=== PATIENT | male | born 1950 | race Caucasian/White ===

== ENCOUNTER 2016-08-03 08:59 | Inpatient (IN) | payer MEDICARE ==
--- NOTE | 2016-08-03 10:09 | ED ---
Chest Pain HPI - General Chief Complaint: Chest Pain Stated Complaint: CHEST PAIN, HX Time Seen by Provider: 08/03/16 09:07 Source: patient, RN notes reviewed Mode of arrival: ambulatory Limitations: no limitations - History of Present Illness Initial Comments: This patient is 65-year-old man who presents to be evaluated for substernal and epigastric pain that is been coming on intermittently since last night. The episodes are like a pressure, moderate intensity. The patient states that he has had 3 episodes over this period of time. Today's episode occurred while he was walking on his treadmill. He describes it as a pressure sensation. It lasted about 15 minutes and it did resolve while he was resting here in the stretcher. The patient states she was having similar episodes about 3 years ago which resulted in him having a stress test followed by a heart catheterization. His recollection is that he had a 40% blockage in one artery he did not have any stents placed. MD Complaint: chest pain Onset/Timin -: days(s) Onset: during exertion Pain Location: substernal, epigastric Pain Radiation: none Severity: moderate Severity scale (1-10): 7 Quality: heaviness Consistency: intermittent, now resolved Improves With: rest Worsens With: exertion Treatments Prior to Arrival: none - Related Data Home Medications Medication Instructions Recorded Confirmed Aspirin 81 mg PO DAILY 08/03/16 08/03/16 Atorvastatin [Lipitor] 10 mg PO HS@1900 08/03/16 08/03/16 Diltiazem Cd [Cardizem Cd] 120 mg PO DAILY 08/03/16 08/03/16 Allergies Allergy/AdvReac Type Severity Reaction Status Date / Time No Known Allergies Allergy Verified 08/03/16 09:47 Review of Systems ROS Statement: Those systems with pertinent positive or pertinent negative responses have been documented in the HPI. ROS Other: All systems not noted in ROS Statement are negative. Constitutional: Denies: fever, chills, weakness Respiratory: Denies: cough, dyspnea, wheezes Cardiovascular: Reports: as per HPI, chest pain, dyspnea on exertion. Denies: palpitations, edema, syncope Gastrointestinal: Denies: abdominal pain, nausea, vomiting Genitourinary: Denies: dysuria, hematuria Skin: Denies: rash Neurological: Denies: headache, weakness, numbness EKG Findings - EKG Results: EKG: interpreted by ERMD, WNL, sinus rhythm (Rate 90 bpm), normal axis, normal QRS, normal ST/T Past Medical History Past Medical History: Coronary Artery Disease (CAD) History of Any Multi-Drug Resistant Organisms: None Reported Additional Past Surgical History / Comment(s): VASECTOMY Past Psychological History: No Psychological Hx Reported Smoking Status: Former smoker Past Alcohol Use History: None Reported Past Drug Use History: None Reported General Exam Limitations: no limitations General appearance: alert, in no apparent distress Head exam: Present: atraumatic, normocephalic Eye exam: Present: normal appearance. Absent: scleral icterus, conjunctival injection ENT exam: Present: normal oropharynx Neck exam: Present: normal inspection, full ROM Respiratory exam: Present: normal lung sounds bilaterally. Absent: respiratory distress, wheezes, rales, rhonchi, stridor, chest wall tenderness Cardiovascular Exam: Present: regular rate, normal rhythm, normal heart sounds. Absent: systolic murmur, diastolic murmur, rubs, gallop GI/Abdominal exam: Present: soft. Absent: distended, tenderness, guarding, rebound Extremities exam: Present: normal inspection, normal capillary refill. Absent: pedal edema, calf tenderness Back exam: Present: normal inspection. Absent: CVA tenderness (R), CVA tenderness (L) Skin exam: Present: warm, dry, intact, normal color. Absent: rash Course Vital Signs 08/03/16 09:01 Temperature 97.6 F Pulse Rate 90 Respiratory 18 Rate Blood Pressure 125/84 O2 Sat by Pulse 93 L Oximetry Disposition Clinical Impression: Chest pain Disposition: ADMITTED IP TO THIS HOSP Condition: Good
[2016-08-03 10:15] LABS: Basophils # (A) 0.1 k/uL (0-0.2); Basophils % (A) 1 %; CH 30.7; CHCM 36.2; Eosinophils # (A) 0.2 k/uL (0-0.7); Eosinophils % (A) 3 %; HCT 46.1 % (39.0-53.0); HDW 2.92; Luc # (Auto) 0.09; Luc % (Auto) 2; Lymphocytes # (A) 1.1 k/uL (1.0-4.8); Lymphocytes % (A) 18 %; MCH 29.7 pg (25.0-35.0); MCHC 34.8 g/dL (31.0-37.0); MCV 85.4 fL (80.0-100.0); Mean Platelet Volume 7.7; Monocytes # (A) 0.5 k/uL (0-1.0); Monocytes % (A) 8 %; Neutrophils # (A) 4.4 k/uL (1.3-7.7); Neutrophils % (A) 70 %; RBC 5.39 m/uL (4.30-5.90); RDW 12.8 % (11.5-15.5); WBC 6.2 k/uL (3.8-10.6); WBC (Perox) 5.85
[2016-08-03 10:22] LABS: ALT 36 U/L (21-72); AST 18 U/L (17-59); Alkaline Phosphatase 99 U/L (38-126); Amylase 84 U/L (30-110); Anion Gap 14 mmol/L; Blood Urea Nitrogen 19 mg/dL (9-20); Calcium 9.6 mg/dL (8.4-10.2); Carbon Dioxide 26 mmol/L (22-30); Chloride 103 mmol/L (98-107); Glucose 136 mg/dL (74-99); Non-African American GFR(MDRD) 52 (>60 ml/min/1.73 sqM); Potassium 4.8 mmol/L (3.5-5.1); Sodium 143 mmol/L (137-145); Total Bilirubin 1.3 mg/dL (0.2-1.3); Total Protein 7.6 g/dL (6.3-8.2)
--- NOTE | 2016-08-03 10:31 | XR ---
EXAMINATION TYPE: XR chest 2V DATE OF EXAM: 08/03/2016 10:24 AM COMPARISON: None HISTORY: 65-year-old male with chest pain today TECHNIQUE: Frontal and lateral views FINDINGS: The cardiomediastinal silhouette, aorta, and pulmonary vasculature are within normal limits. Mild int erstitial prominence likely chronic senescent change. No consolidation or pleural effusion. IMPRESSION: Chronic appearing changes without acute cardiopulmonary process.
[2016-08-03 10:33] LABS: Creatine Kinase 63 U/L (55-170)
[2016-08-03 10:47] LABS: Creatine Kinase MB 0.5 ng/mL (0.0-2.4); Troponin I <0.012 ng/mL (0.000-0.034)
[2016-08-03] MEDS ORDERED: NITROGLYCERIN SL TABS 0.4 MG TAB SUBLINGUAL PRN (11:29)
[2016-08-03 11:35] LABS: Appearance,Urine Cloudy (Clear); Bilirubin,Urine Negative (Negative); Glucose,Urine (UA) Negative (Negative); Ketones,Urine 1+ (Negative); Leukocyte Esterase,Urine Negative (Negative); Mucus,Urine Many /hpf; Nitrite,Urine Negative (Negative); PH, Urine 5.5 (5.0-8.0); Particle Count 15331; Protein,Urine Trace (Negative); UA Billing (MACRO vs. MICRO) MICRO; WBC,Urine 3 /hpf (0-5)
--- NOTE | 2016-08-03 13:43 | P.CRDCN ---
History of Present Illness Consult date: 08/03/16 Chief complaint: Chest pain History of present illness: This is a pleasant 65-year-old gentleman with a past medical history significant for CAD, hypertension, dyslipidemia presented to the emergency room complaining of chest discomfort. He had 4 episodes of chest discomfort over the last 24 hours. He describes the discomfort as a sharp kind of discomfort lasts only for a few seconds without any associated symptoms of shortness of breath, sweating, nausea or vomiting or syncope. He underwent heart catheterization by Dr. JAYCOB Angelo in 2013 and that showed intermediate disease involving the left anterior descending artery and maximize medical treatment was recommended at that point. The EKG showed sinus rhythm with a nonspecific changes only. We have only one set of cardiac enzymes came in to be unremarkable. I will follow-up with the second set of cardiac enzymes. If that came in to be unremarkable I would consider proceeding with a stress test to assess for any progression in the severity of the CAD from 2014. Past Medical History Past Medical History: Coronary Artery Disease (CAD), Chest Pain / Angina, Prostate Disorder Additional Past Medical History / Comment(s): BPH, chronic low back pain, recent root canal-was on ABX. History of Any Multi-Drug Resistant Organisms: None Reported Past Surgical History: Heart Catheterization Additional Past Surgical History / Comment(s): 2013 Cardiac cath-treated medically, wisdom teeth extraction, VASECTOMY Past Anesthesia/Blood Transfusion Reactions: No Reported Reaction Past Psychological History: No Psychological Hx Reported Additional Psychological History / Comment(s): Pt resides with his spouse. He is independent. Smoking Status: Former smoker Past Alcohol Use History: Rare Additional Past Alcohol Use History / Comment(s): Pt started smoking in 1968 and quit in 1998. Past Drug Use History: None Reported - Past Family History Father Family Medical History: Coronary Artery Disease (CAD) Additional Family Medical History / Comment(s): Father at 88 yrs of age. He had heart problems late in life. Mother Family Medical History: No Reported History Additional Family Medical History / Comment(s): Mother was healthy. She at the age of 94 yrs. Medications and Allergies Home Medications Medication Instructions Recorded Confirmed Type Aspirin 81 mg PO DAILY 08/03/16 08/03/16 History Atorvastatin [Lipitor] 10 mg PO HS@1900 08/03/16 08/03/16 History Diltiazem Cd [Cardizem Cd] 120 mg PO DAILY 08/03/16 08/03/16 History Allergies Allergy/AdvReac Type Severity Reaction Status Date / Time No Known Allergies Allergy Verified 08/03/16 09:47 Physical Exam Vitals: Vital Signs Temp Pulse Pulse Resp BP BP Pulse Ox 08/03/16 12:05 97.6 F 92 18 132/83 96 08/03/16 11:47 97.8 F 70 18 130/81 94 L Intake and Output 08/02/16 08/03/16 08/03/16 22:59 06:59 14:59 Other: Weight 76.7 kg Patient Weight 08/04/16 06:59 Weight 76.7 kg - Constitutional General appearance: no acute distress - Respiratory Respiratory: bilateral: CTA - Cardiovascular Rhythm: regular Heart sounds: normal: S1, S2 Abnormal Heart Sounds: systolic murmur Results 08/03/16 09:20 08/03/16 09:20 Current Medications Generic Name Dose Route Start Last Admin Trade Name Freq PRN Reason Stop Dose Admin Aspirin 325 mg 08/04/16 09:00 Aspirin PO DAILY [facility] Atorvastatin Calcium 10 mg 08/03/16 19:00 Lipitor PO HS@1900 CORNELIO Diltiazem HCl 120 mg 08/04/16 09:00 Cardizem Cd PO DAILY [facility] Heparin Sodium (Porcine) 5,000 unit 08/03/16 16:00 Heparin SQ Q8HR [facility] Sodium Chloride 1,000 mls @ 100 mls/hr 08/03/16 11:30 Saline 0.9% IV .Q10H CORNELIO Nitroglycerin 0.4 mg 08/03/16 11:29 Nitrostat SUBLINGUAL Q5M PRN Chest Pain Intake and Output 08/02/16 08/03/16 08/03/16 22:59 06:59 14:59 Other: Weight 76.7 kg Patient Weight 08/04/16 06:59 Weight 76.7 kg Assessment and Plan Plan: Assessment #1 intermittent episodes of chest discomfort seems to be atypical #2 known CAD documented on a heart catheterization in 2013 #3 multiple risk factors for CAD Plan #1 follow-up on the serial cardiac enzymes #2 further recommendation to follow that
[2016-08-03 16:00] LABS: Creatine Kinase 54 U/L (55-170)
[2016-08-03 16:10] LABS: Creatine Kinase MB 0.3 ng/mL (0.0-2.4); Troponin I <0.012 ng/mL (0.000-0.034)
[2016-08-03] MEDS: HEPARIN SODIUM,PORCINE 5,000 UNIT/ML 1 ML VIAL SQ SCH (16:37)
[2016-08-03] MEDS: SODIUM CHLORIDE 0.9% 1,000 ML IV SCH (20:08)
[2016-08-03] MEDS: ATORVASTATIN 10 MG TAB PO SCH (20:08)
[2016-08-03 21:47] LABS: Creatine Kinase 50 U/L (55-170)
[2016-08-03 22:00] LABS: Creatine Kinase MB 0.3 ng/mL (0.0-2.4); Troponin I <0.012 ng/mL (0.000-0.034)
[2016-08-04] MEDS: HEPARIN SODIUM,PORCINE 5,000 UNIT/ML 1 ML VIAL SQ SCH ×3 (00:20→18:57)
[2016-08-04 01:44] LABS: Cholesterol 96 mg/dL (<200); HDL Cholesterol 35 mg/dL (40-60); Triglycerides 59 mg/dL (<150)
--- NOTE | 2016-08-04 08:36 | P.PN ---
Subjective Principal diagnosis: Chest pain This is a pleasant 65-year-old gentleman with a known coronary artery disease, hypertension, and dyslipidemia who sees Dr. JAYCOB Angelo as an outpatient was admitted to the hospital with a chest discomfort. In 2013 he underwent a heart catheterization which showed intermediate disease involving the LAD. This admission, his cardiac workup came in to be unremarkable but he continues to have chest discomfort. I am proceeding with a stress test to rule out any severe underlying CAD in terms of progression in the severity of the LAD. Objective - Vital Signs Vital signs: Vital Signs Temp 97.5 F L 08/04/16 07:37 Pulse 61 08/04/16 07:37 Resp 16 08/04/16 07:37 BP 124/74 08/04/16 07:37 Pulse Ox 94 L 08/04/16 07:37 Intake & Output 08/03/16 08/04/16 08/04/16 18:59 06:59 18:59 Intake Total 812 400 Balance 812 400 Weight 76.7 kg Intake: Oral 812 400 Other: Voiding Method Toilet # Voids 1 - Constitutional General appearance: Present: no acute distress - Respiratory Respiratory: bilateral: CTA - Cardiovascular Rhythm: regular Heart sounds: normal: S1, S2 - Labs CBC & Chem 7: 08/03/16 09:20 08/03/16 09:20 Labs: Abnormal Lab Results - Last 24 Hours (Table) 08/03/16 08/03/16 Range/Units 15:14 20:37 Total Creatine Kinase 54 L 50 L (55-170) U/L Assessment and Plan Plan: Assessment #1 atypical chest pain #2 known CAD #3 multiple risk factors Plan #1 proceeding with a stress test #2 follow-up with the patient
[2016-08-04] MEDS: SODIUM CHLORIDE 0.9% 1,000 ML IV SCH ×2 (11:25→19:45)
[2016-08-04] MEDS: ASPIRIN 325 MG TAB PO SCH (11:33)
[2016-08-04] MEDS: DILTIAZEM CD 120 MG CAP.ER.24H PO SCH (11:33)
--- NOTE | 2016-08-04 11:57 | NM ---
EXAMINATION TYPE: NM stress cardiolite complete DATE OF EXAM: 08/04/2016 11:48 AM COMPARISON: NONE HISTORY: Precordial chest pain and abnormal EKG TECHNIQUE: After the intravenous administration of 10.7 mCi Tc 99m Sestamibi - Rest images obtained 40 minutes post injection. The patient exercised using a WILMA protocol and 1 minute prior to peak exercise was injected with 27.5 mCi Tc 99m Sestamibi - Stress images obtained 14 minutes post injecti on. FINDINGS: Targeted heart rate was achieved during performance of the study. Review of stress and rest SPECT dave ges demonstrates no distinct perfusion abnormality. Gated analysis shows normal wall motion with an estimated left ventricular ejection fraction of 63% %. IMPRESSION: No scintigraphic evidence for reversible ischemia
--- NOTE | 2016-08-04 12:19 | EST ---
DATE OF SERVICE: 08/04/2016 AGE: 65Y SEX: M HT: 70" WT: 169 lbs. Protocol Steve: X Other: Cardiolite Stage: III Dur. of Exercise: 7:30 *Heart Rate Blood Pressure *Rest: 98 Rest: 105/74 * *Max. Achieved: 137 Maximum BP: 131/84 85% PMHR: 130 100% PMHR: 153 *METS: 9.1 INDICATIONS: Chest pain. MEDICATIONS: Cardizem, aspirin, Lipitor. CLINICAL INFORMATION: Chest pain, hypertension, hypercholesterolemia, history of smoking 1 pack of cigarettes for 20 years, quit smoking 20 years ago. Resting ECG shows sinus rhythm, rate of 98 beats per minute, WA interval 0.16, QRS 0.08, normal ST-T waves. Utilizing a standard Steve protocol, a symptom-limited treadmill test was performed. Patient exercised for total of 7 minutes and 30 seconds, attained a peak heart of 137 beats per minute which is approximately 89% of predicted maximum heart rate without any chest pain or pressure or ST segment deviations indicative of ischemia in any of the monitoring 12 leads. IMPRESSION: 1. Baseline rhythm is sinus with normal WA interval, normal QRS, normal ST-T waves. 2. Negative Cardiolite scan at 89% predicted maximum heart rate. 3. Nuclear scintigrams to follow from radiology department. 4. Patient has slightly below average level of cardiopulmonary fitness as indicated by VO2 max and METs. Patient attained peak metabolic activity equivalent to 8 to 9 METs.
--- NOTE | 2016-08-04 13:41 | HP ---
DATE OF ADMISSION: 08/03/2016 This patient was seen and examined by me, awaiting some more information. Full dictation of history and physical to follow.
--- NOTE | 2016-08-04 13:55 | HP ---
DATE OF ADMISSION: 08/03/2016 PRESENTING COMPLAINT: Chest pain. HISTORY OF PRESENTING COMPLAINT: This is a pleasant 65-year-old patient I saw earlier today. I was waiting for more information before dictating my note. The patient had a cardiac cath back in 2013, which told he had 40% disease was managed medically. The patient also had chronic stable medical conditions that include hypertension, hypercholesterolemia, BPH, low back pain. Patient about 5 days ago was on the treadmill, developed a slight chest pressure. Every subsequent day on the treadmill, he was having more and more chest pressure even before getting onto the treadmill as much as yesterday. Denied any shortness of breath. Slightly dizzy. No radiation. Because of his progressive symptoms, the patient was admitted for unstable angina. REVIEW OF SYSTEMS: CONSTITUTIONAL: None. HEENT: None. RESPIRATORY: None. CARDIOVASCULAR: As above. GASTROINTESTINAL: None. GENITOURINARY: None. MUSCULOSKELETAL: Chronic low back pain. DERMATOLOGICAL: None. HEMATOLOGICAL: None. LYMPHATICS: None. PSYCHIATRY: None. NEUROLOGICAL: None. Past medical history of coronary artery disease nonobstructive 40% per cardiac cath, BPH, low back pain, hypertension, hypercholesterolemia. PAST SURGICAL HISTORY: Cardiac cath, wisdom teeth extraction, vasectomy. SOCIAL HISTORY: . Retired from [employer] in [employer]. Smoked for about 30 years; stopped in 1998. Family history of coronary artery disease. HOME MEDICATIONS: 1. Aspirin 81 mg a day. 2. Cardizem CD 120 mg a day. 3. Lipitor 10 mg q.h.s. ALLERGIES: None. On examination, temperature 97.5, pulse 61, respirations 16, blood pressure 124/74, pulse ox 94% on room air. GENERAL APPEARANCE: Average built, sitting up, comfortable. EYES: Pupils equal. Conjunctivae normal. HENT: External appearance of nose and ears normal. Oral cavity normal. NECK: JVD not raised. Mass not palpable. RESPIRATORY: Effort normal. Lungs are clear. CARDIOVASCULAR: First and second sounds normal. No edema. ABDOMEN: Soft. Nontender. Liver and spleen not palpable. LYMPHATIC: No lymph node palpable in neck or axillae. PSYCHIATRY: Alert and oriented x3. Mood and affect is normal. INVESTIGATIONS: EKG shows normal sinus rhythm. ASSESSMENT: 1. Unstable angina in a patient with known nonobstructive coronary artery disease with progressive symptoms with exertion, rule out possible underlying coronary artery disease. 2. Benign prostatic hypertrophy, chronic. 3. Essential hypertension, chronic. 4. Hypercholesterolemia. PLAN: Cardiology was consulted who ordered a stress test. Patient's home medications were reviewed including aspirin. Will follow.
[2016-08-04] MEDS ORDERED: SODIUM CHLORIDE 0.9% 1,000 ML in EMPTY BAG 1 BAG IV ONE (15:46)
[2016-08-04] MEDS ORDERED: ALPRAZolam 0.25 MG TAB PO PRN (15:46)
[2016-08-04] MEDS: ATORVASTATIN 10 MG TAB PO SCH (19:54)
[2016-08-05] MEDS: ASPIRIN 325 MG TAB PO SCH (05:47)
[2016-08-05] MEDS: SODIUM CHLORIDE 0.9% 1,000 ML IV SCH ×3 (05:48→17:34)
[2016-08-05 06:37] LABS: CH 30.7; CHCM 34.9; HCT 42.2 % (39.0-53.0); HDW 2.82; HGB 14.5 gm/dL (13.0-17.5); MCH 30.3 pg (25.0-35.0); MCHC 34.4 g/dL (31.0-37.0); MCV 88.2 fL (80.0-100.0); Mean Platelet Volume 7.1; RBC 4.79 m/uL (4.30-5.90); RDW 12.8 % (11.5-15.5); WBC 6.9 k/uL (3.8-10.6)
[2016-08-05 06:46] LABS: Anion Gap 9 mmol/L; Blood Urea Nitrogen 21 mg/dL (9-20); Calcium 9.1 mg/dL (8.4-10.2); Carbon Dioxide 25 mmol/L (22-30); Chloride 106 mmol/L (98-107); Glucose 129 mg/dL (74-99); Non-African American GFR(MDRD) 57 (>60 ml/min/1.73 sqM); Sodium 140 mmol/L (137-145)
--- NOTE | 2016-08-05 07:43 | P.PN ---
Progress Note - Text This is a pleasant 65-year-old gentleman with a known coronary artery disease, hypertension, and dyslipidemia who sees Dr. JAYCOB Angelo as an outpatient was admitted to the hospital with a chest discomfort. In 2013 he underwent a heart catheterization which showed intermediate disease involving the LAD. This admission, his cardiac workup came in to be unremarkable but he continues to have chest discomfort. The patient underwent a stress test which came in to be unremarkable for ischemia. Last night he was experiencing some chest discomfort with exertion. I am getting the patient up and around this morning and if she continues to have a chest discomfort I would consider proceeding with heart catheterization to rule out any CVA or CAD was not detected by the stress test.
--- NOTE | 2016-08-05 11:57 | ECHOF ---
Referral Reason: MEASUREMENTS -------- HEIGHT: 182.9 cm WEIGHT: 76.7 kg BP: 126/65 IVSd: 0.8 cm (0.6 - 1.1) LVIDd: 4.3 cm (3.9 - 5.3) LVPWd: 1.0 cm (0.6 - 1.1) IVSs: 1.8 cm LVIDs: 1.5 cm LVPWs: 1.9 cm Ao Diam: 2.8 cm (2.0 - 3.7) AV Cusp: 2.0 cm (1.5 - 2.6) LA Diam: 2.4 cm (2.7 - 3.8) MV EXCURSION: 14.577 mm (> 18.000) MV EF SLOPE: 119 mm/s (70 - 150) EPSS: 1.1 cm MV E Luis Armando: 0.73 m/s MV DecT: 217 ms MV A Luis Armando: 0.57 m/s MV E/A Ratio: 1.29 RAP: 5.00 mmHg RVSP: 17.86 mmHg FINDINGS -------- Sinus rhythm. This was a technically good study. Left ventricular wall thickness is normal. Overall left ventricular systolic function is normal with, an EF between 55 - 60 %. The right ventricle is normal in size and function. The left atrium is normal in size. The right atrium is normal in size. The aortic valve is trileaflet, and appears structurally normal. No aortic stenosis or regurgitation. There is trace mitral regurgitation. Mild tricuspid regurgitation present. The right ventricular systolic pressure, as measured by Doppler, is 17.86mmHg. Pulmonic valve appears structurally normal. The aortic root, ascending aorta and aortic arch are normal. The pericardium is normal. CONCLUSIONS -------- 1. Sinus rhythm. 2. Mild tricuspid regurgitation present. 3. The right ventricular systolic pressure, as measured by Doppler, is 17.86mmHg. 4. Pulmonic valve appears structurally normal. 5. The aortic root, ascending aorta and aortic arch are normal. 6. The pericardium is normal. 7. This was a technically good study. 8. Left ventricular wall thickness is normal. 9. Overall left ventricular systolic function is normal with, an EF between 55 - 60 %. 10. The right ventricle is normal in size and function. 11. The left atrium is normal in size. 12. The right atrium is normal in size. 13. The aortic valve is trileaflet, and appears structurally normal. No aortic stenosis or regurgitation. 14. There is trace mitral regurgitation. MUFFLER MECHANIC: Savanah Odonnell RDCS
[2016-08-05] MEDS ORDERED: IV FLUID CONTINUATION 1,000 ML IV ONE (13:40)
[2016-08-05] MEDS ORDERED: VERAPAMIL 2.5 MG/ML 2 ML AMP ONE (13:48)
[2016-08-05] MEDS ORDERED: MIDAZOLAM 2 MG/2 ML VIAL ONE (13:48)
[2016-08-05] MEDS ORDERED: LIDOCAINE 2% INJ 20 MG/ML (20 ML MDV) ONE (13:48)
[2016-08-05] MEDS ORDERED: SODIUM CHLORIDE 0.9% (PF) 10 ML VIAL ONE (13:48)
[2016-08-05] MEDS ORDERED: MIDAZOLAM 2 MG/2 ML VIAL IV ONE (14:08)
[2016-08-05] MEDS ORDERED: HEPARIN SODIUM 1,000 UNIT/ML VIAL ONE (14:09)
[2016-08-05] MEDS ORDERED: LIDOCAINE 2% INJ 20 MG/ML SQ ONE (14:09)
[2016-08-05] MEDS ORDERED: VERAPAMIL SYRINGE (5 MG/10 ML) INTRAARTER ONE (14:10)
[2016-08-05] MEDS ORDERED: HEPARIN SODIUM 1,000 UNIT/ML VIAL IV ONE (14:11)
[2016-08-05] MEDS ORDERED: IODIXANOL 320 MG/ML 100 ML INTRAARTER ONE (14:24)
[2016-08-05] MEDS ORDERED: RX INFO: IV CONTRAST WAS GIVEN 1 EACH MISC MISCELLANE PRN (14:33)
[2016-08-05] MEDS ORDERED: SODIUM CHLORIDE 0.9% 1,000 ML IV SCH (14:45)
[2016-08-05 16:10] VITALS: RESP 16; TEMP 97.9
[2016-08-05] MEDS ORDERED: ISOSORBIDE MONONITRATE ER 30 MG TAB.ER.24H PO STA (17:02)
[2016-08-05] MEDS ORDERED: ACETAMINOPHEN TAB 325 MG TAB PO PRN (17:16)
[2016-08-05] MEDS: DILTIAZEM CD 120 MG CAP.ER.24H PO SCH (17:33)
[2016-08-05 17:39] VITALS: BP 107/63; PULSE 61
--- NOTE | 2016-08-05 18:08 | CC ---
DATE OF SERVICE: 08/05/2016 PERFORMING PHYSICIAN: Raul Hinson MD, grounds foreman. PROCEDURE PERFORMED: Selective right and left coronary angiogram. INDICATION OF THE PROCEDURE: This is a pleasant 65-year-old gentleman who sees Dr. Erasmo Angelo as an outpatient with a known history of coronary artery disease involving the LAD as well as hypertension and dyslipidemia presented to the hospital with chest discomfort. He continues to have chest discomfort with exertion. APPROACH: Right radial artery. COMPLICATIONS: None. LEVEL OF SEDATION: Moderate. PROCEDURE DESCRIPTION: After obtaining informed consent, the patient was brought to the cardiac director of cath lab. The right common femoral artery was cannulated using micropuncture technique. The micropuncture wire passed easily, then I placed a 6 Turkmen sheath in the right radial artery. Subsequently, I did selective right and left coronary angiogram using JR4 and JL 3.5 catheters. I did left heart catheterization using the JR4 catheter, which flipped into the left ventricle. The procedure was completed without any complication. SELECTIVE CORONARY ANGIOGRAM: 1. The right coronary artery is a large-caliber vessel. It is a dominant vessel. It is angiographically normal. It bifurcates distally into PDA and PLV branches; both are angiographically normal. 2. The left main is angiographically normal. It bifurcates into the left circumflex and left anterior descending artery. 3. The left circumflex is a large-caliber vessel and it is a nondominant vessel. The proximal left circumflex gives rise to the first OM branch, which appeared to be angiographically normal and the left circumflex continues as a small-caliber vessel in the AV groove. 4. Left anterior descending artery. The proximal LAD appeared to be angiographically normal and gives rises into the first diagonal, which seems to be angiographically normal. The mid LAD is normal and gives rises into the second diagonal, which seems to be angiographically normal. The left anterior descending distally has long tubular lesion appeared to be in the range of maybe 40% only. CONCLUSION: Mild to moderate disease involving the distal left anterior descending artery seems to be unchanged compared to before. POSTPROCEDURE MANAGEMENT: 1. I am going to add oral nitrate to the current medical treatment. 2. Follow up with the patient.
--- NOTE | 2016-08-06 07:45 | DS ---
DATE OF ADMISSION: 08/04/2016 DATE OF DISCHARGE: 08/05/2016 FINAL DIAGNOSES: 1. Unstable angina with patient of nonobstructive coronary artery disease. 2. Benign prostatic hypertrophy, chronic. 3. Essential hypertension, chronic. 4. Hypercholesterolemia. HOSPITAL COURSE: This patient presented with cardiac sounding presentation: Cardiac cath did showed nonobstructive disease. On exam, lungs are clear. CARDIOVASCULAR: First and second sounds normal. Patient's nuclear stress test otherwise unremarkable. 2-D echocardiogram shows EF of 55% to 60%. The patient's LDL was 49. CONSULTATION: Dr. Hinson. DISCHARGE MEDICATIONS: 1. Aspirin 81 mg a day. 2. Lipitor 10 mg p.o. q.h.s. 3. Cardizem CD 120 mg a day. 4. Imdur ER 30 mg a day. 5. Nitrostat 0.4 sublingual q.5 p.r.n. Follow up with Dr. Victorina Angelo in one week; Dr. Perez in one week. LUNGS: Clear. CARDIOVASCULAR: First and second sounds normal.
[2016-08-06] MEDS ORDERED: ISOSORBIDE MONONITRATE ER 30 MG TAB.ER.24H PO SCH (09:00)
== END 2016-08-05 19:02 | disposition home or self-care (01) | DRG 287 ==
LOC: EC 08:59 → 3OBS 11:29 → OBSVTOIN 08-04 16:05
PROVIDERS: ADMIT Hospitalist; ATTEND Hospitalist
PROC: B211YZZ Fluoroscopy of Multiple Coronary Arteries using Other Contrast (ICD-10-PCS; principal; 2016-08-05 13:40)
DX: I25.110 Atherosclerotic heart disease of native coronary artery with unstable angina pectoris (principal); I10 Essential (primary) hypertension; E78.5 Hyperlipidemia, unspecified; E78.00 Pure hypercholesterolemia, unspecified; N40.0 Benign prostatic hyperplasia without lower urinary tract symptoms; G89.29 Other chronic pain; M54.5 Low back pain; Z79.82 Long term (current) use of aspirin; Z79.899 Other long term (current) drug therapy; Z87.891 Personal history of nicotine dependence; Z82.49 Family history of ischemic heart disease and other diseases of the circulatory system
CPT/HCPCS: 36415; 71020; 78452; 80048; 80053; 80061; 81001; 82150; 82550; 82553; 83690; 83735; 84484; 85025; 85027; 85379; 93005; 93017; 93306; 93458; 99285

== ENCOUNTER 2019-03-06 13:37 | Emergency (ER) | payer MEDICARE ==
[2019-03-06] MEDS ORDERED: SODIUM CHLORIDE 0.9% 1,000 ML IV STA (14:21)
--- NOTE | 2019-03-06 14:37 | ED ---
Dizziness HPI - General Chief Complaint: Dizziness Stated Complaint: weakness, confusion Time Seen by Provider: 03/06/19 14:12 Source: patient, RN notes reviewed, old records reviewed Mode of arrival: wheelchair Limitations: no limitations - History of Present Illness Initial Comments: 68 year old male presents today with 3 weeks of intermittent confusion, off balance, and complains of lightheadedness. Patient reports he has been exercsing more frequently and thinking this is contributing. Denies pain, including headache or chest pain. Patient reports he called PCP for appt and was told to come here. PAtient at this time walked into ED and denies falls. Patient denies syncopal episodes. Patient reports sometimes in conversations he says the wrong thing in response. Patient has no history of strokes, heart disease. - Related Data Home Medications Medication Instructions Recorded Confirmed Aspirin 81 mg PO DAILY 08/03/16 08/03/16 Atorvastatin [Lipitor] 10 mg PO HS@1900 08/03/16 08/03/16 Diltiazem Cd [Cardizem CD] 120 mg PO DAILY 08/03/16 08/03/16 Previous Rx's Medication Instructions Recorded Isosorbide Mononitrate ER [Imdur] 30 mg PO DAILY #30 tab.er.24h 08/05/16 Nitroglycerin Sl Tabs [Nitrostat] 0.4 mg SUBLINGUAL Q5M PRN #25 tab 08/05/16 Allergies Allergy/AdvReac Type Severity Reaction Status Date / Time No Known Allergies Allergy Verified 03/06/19 14:02 Review of Systems ROS Statement: Those systems with pertinent positive or pertinent negative responses have been documented in the HPI. ROS Other: All systems not noted in ROS Statement are negative. Past Medical History Past Medical History: Coronary Artery Disease (CAD), Chest Pain / Angina, Prostate Disorder Additional Past Medical History / Comment(s): BPH, chronic low back pain, recent root canal-was on ABX. History of Any Multi-Drug Resistant Organisms: None Reported Past Surgical History: Heart Catheterization Additional Past Surgical History / Comment(s): 2014 Cardiac cath-treated medically, wisdom teeth extraction, VASECTOMY Past Anesthesia/Blood Transfusion Reactions: No Reported Reaction Past Psychological History: No Psychological Hx Reported Smoking Status: Former smoker Past Alcohol Use History: Rare Past Drug Use History: None Reported - Past Family History Father Family Medical History: Coronary Artery Disease (CAD) Additional Family Medical History / Comment(s): Father at 88 yrs of age. He had heart problems late in life. Mother Family Medical History: No Reported History Additional Family Medical History / Comment(s): Mother was healthy. She at the age of 94 yrs. General Exam Limitations: no limitations General appearance: alert, in no apparent distress Head exam: Present: atraumatic, normocephalic, normal inspection Eye exam: Present: normal appearance, PERRL, EOMI. Absent: scleral icterus, conjunctival injection, periorbital swelling ENT exam: Present: normal exam, mucous membranes moist Neck exam: Present: normal inspection. Absent: tenderness, meningismus, lymphadenopathy Respiratory exam: Present: normal lung sounds bilaterally. Absent: respiratory distress, wheezes, rales, rhonchi, stridor Cardiovascular Exam: Present: regular rate, normal rhythm, normal heart sounds. Absent: systolic murmur, diastolic murmur, rubs, gallop, clicks GI/Abdominal exam: Present: soft, normal bowel sounds. Absent: distended, tenderness, guarding, rebound, rigid Extremities exam: Present: normal inspection, full ROM, normal capillary refill. Absent: tenderness, pedal edema, joint swelling, calf tenderness Back exam: Present: normal inspection Neurological exam: Present: alert, oriented X3, CN II-XII intact Expanded Patient oriented to: Present: person, place, time Speech: Present: fluid speech Cranial nerves: EOM's Intact: Normal, Facial Sensation: Normal Cerebellar function: Finger to Nose: Normal Upper motor neuron: Alfred Neglect: Normal Sensory exam: Upper Extremity Light Touch: Normal, Lower Extremity Light Touch: Normal Motor strength exam: RUE: 5, LUE: 5, RLE: 5, LLE: 5 Eye Response: (4) open spontaneously Motor Response: (6) obeys commands Verbal Response: (5) oriented [place] Total: 15 Psychiatric exam: Present: normal affect, normal mood Skin exam: Present: warm, dry, intact, normal color. Absent: rash Course Vital Signs 03/06/19 03/06/19 14:00 16:53 Temperature 97.1 F L 98.4 F Pulse Rate 87 60 Respiratory 20 16 Rate Blood Pressure 136/76 172/75 O2 Sat by Pulse 96 95 Oximetry Medical Decision Making - Medical Decision Making 68 yo male, presents today with 3 weeks of dizziness, lightheaded feeling, and reports occasional confusion. AT this time he has normal converstation. No signs of neurological deficits. CXR is normal, CT brain is shows chronic ischemic changes, no acute intracranial abnormality. Patient labs were normal. Patient and informed of all results. Patient and discussed plan for DC and follow up with PCP and neurology. Discussed maybe onset of dementia or other neurodegenerative disorders. Discussed possible admission for observation and patient preferred to go home. Discussed close PCP follow up. - Lab Data Result diagrams: 03/06/19 14:40 03/06/19 14:40 Lab Results 03/06/19 03/06/19 03/06/19 Range/Units 14:40 14:40 14:40 WBC 5.6 (3.8-10.6) k/uL RBC 4.67 (4.30-5.90) m/uL Hgb 14.8 (13.0-17.5) gm/dL Hct 42.7 (39.0-53.0) % MCV 91.6 (80.0-100.0) fL MCH 31.8 (25.0-35.0) pg MCHC 34.7 (31.0-37.0) g/dL RDW 12.3 (11.5-15.5) % Plt Count 197 (150-450) k/uL Neutrophils % 66 % Lymphocytes % 17 % Monocytes % 10 % Eosinophils % 4 % Basophils % 1 % Neutrophils # 3.7 (1.3-7.7) k/uL Lymphocytes # 1.0 (1.0-4.8) k/uL Monocytes # 0.5 (0-1.0) k/uL Eosinophils # 0.2 (0-0.7) k/uL Basophils # 0.0 (0-0.2) k/uL Sodium 140 (137-145) mmol/L Potassium 4.4 (3.5-5.1) mmol/L Chloride 103 (98-107) mmol/L Carbon Dioxide 27 (22-30) mmol/L Anion Gap 10 mmol/L BUN 18 (9-20) mg/dL Creatinine 0.95 (0.66-1.25) mg/dL Est GFR (CKD-EPI)AfAm >90 (>60 ml/min/1.73 sqM) Est GFR (CKD-EPI)NonAf 81 (>60 ml/min/1.73 sqM) Glucose 98 (74-99) mg/dL Calcium 9.1 (8.4-10.2) mg/dL Total Bilirubin 0.5 (0.2-1.3) mg/dL AST 22 (17-59) U/L ALT 21 (21-72) U/L Alkaline Phosphatase 65 (38-126) U/L Troponin I <0.012 (0.000-0.034) ng/mL Total Protein 7.2 (6.3-8.2) g/dL Albumin 4.3 (3.5-5.0) g/dL Urine Color Urine Appearance (Clear) Urine pH (5.0-8.0) Ur Specific [place] (1.001-1.035) Urine Protein (Negative) Urine Glucose (UA) (Negative) Urine Ketones (Negative) Urine Blood (Negative) Urine Nitrite (Negative) Urine Bilirubin (Negative) Urine Urobilinogen (<2.0) mg/dL Ur Leukocyte Esterase (Negative) 03/06/19 Range/Units 14:40 WBC (3.8-10.6) k/uL RBC (4.30-5.90) m/uL Hgb (13.0-17.5) gm/dL Hct (39.0-53.0) % MCV (80.0-100.0) fL MCH (25.0-35.0) pg MCHC (31.0-37.0) g/dL RDW (11.5-15.5) % Plt Count (150-450) k/uL Neutrophils % % Lymphocytes % % Monocytes % % Eosinophils % % Basophils % % Neutrophils # (1.3-7.7) k/uL Lymphocytes # (1.0-4.8) k/uL Monocytes # (0-1.0) k/uL Eosinophils # (0-0.7) k/uL Basophils # (0-0.2) k/uL Sodium (137-145) mmol/L Potassium (3.5-5.1) mmol/L Chloride (98-107) mmol/L Carbon Dioxide (22-30) mmol/L Anion Gap mmol/L BUN (9-20) mg/dL Creatinine (0.66-1.25) mg/dL Est GFR (CKD-EPI)AfAm (>60 ml/min/1.73 sqM) Est GFR (CKD-EPI)NonAf (>60 ml/min/1.73 sqM) Glucose (74-99) mg/dL Calcium (8.4-10.2) mg/dL Total Bilirubin (0.2-1.3) mg/dL AST (17-59) U/L ALT (21-72) U/L Alkaline Phosphatase (38-126) U/L Troponin I (0.000-0.034) ng/mL Total Protein (6.3-8.2) g/dL Albumin (3.5-5.0) g/dL Urine Color Yellow Urine Appearance Clear (Clear) Urine pH 6.5 (5.0-8.0) Ur Specific [place] 1.019 (1.001-1.035) Urine Protein Negative (Negative) Urine Glucose (UA) Negative (Negative) Urine Ketones Negative (Negative) Urine Blood Negative (Negative) Urine Nitrite Negative (Negative) Urine Bilirubin Negative (Negative) Urine Urobilinogen <2.0 (<2.0) mg/dL Ur Leukocyte Esterase Negative (Negative) 03/06/19 16:46 EKG performed at 1433 shows normal sinus rhythm with normal EKG. Ventricular rate of 70 bpm. Verbal 154 ms. QRS duration is 76 ms. QT QTc is 372/41 ms. - Radiology Data Radiology results: report reviewed No acute intracranial hemorrhage or midline shift. Age-related she will atrophy and chronic small vessel changes noted. Disposition Clinical Impression: Light-headed feeling Disposition: HOME SELF-CARE Condition: Good Instructions (If sedation given, give patient instructions): Dizziness (ED) Additional Instructions: Patient is advised to rest. Drink plenty of fluids. Have follow-up with your primary care physician and recommended follow-up with neurology. Is patient prescribed a controlled substance at d/c from ED?: No Referrals: Bert Perez DO [Primary Care Provider] - 1-2 days Time of Disposition: 16:44
--- NOTE | 2019-03-06 15:08 | XR ---
EXAMINATION TYPE: XR chest 2V DATE OF EXAM: 03/06/2019 COMPARISON: 08/03/2016 HISTORY: Dizziness, weakness, and confusion TECHNIQUE: Frontal and lateral views of the chest are obtained. FINDINGS: There is no focal air space opacity, pleural effusion, or pneumothorax seen. The cardiac silhouette size is within normal limits. The osseous structures are intact. IMPRESSION: No acute cardiopulmonary process.
[2019-03-06 15:09] LABS: Appearance,Urine Clear (Clear); Basophils % (A) 1 %; Bilirubin,Urine Negative (Negative); Blood,Urine Negative (Negative); Color,Urine Yellow; Eosinophils # (A) 0.2 k/uL (0-0.7); Eosinophils % (A) 4 %; Glucose,Urine (UA) Negative (Negative); HCT 42.7 % (39.0-53.0); HGB 14.8 gm/dL (13.0-17.5); Ketones,Urine Negative (Negative); Leukocyte Esterase,Urine Negative (Negative); Lymphocytes % (A) 17 %; MCH 31.8 pg (25.0-35.0); MCHC 34.7 g/dL (31.0-37.0); MCV 91.6 fL (80.0-100.0); Mean Platelet Volume 6.9; Monocytes # (A) 0.5 k/uL (0-1.0); Monocytes % (A) 10 %; Neutrophils # (A) 3.7 k/uL (1.3-7.7); Neutrophils % (A) 66 %; Nitrite,Urine Negative (Negative); PH, Urine 6.5 (5.0-8.0); Platelet Count 197 k/uL (150-450); Protein,Urine Negative (Negative); RBC 4.67 m/uL (4.30-5.90); RDW 12.3 % (11.5-15.5); Specific Gravity,Urine 1.019 (1.001-1.035); Urobilinogen,Urine <2.0 mg/dL (<2.0); WBC 5.6 k/uL (3.8-10.6)
--- NOTE | 2019-03-06 15:10 | CT ---
EXAMINATION TYPE: CT brain wo con DATE OF EXAM: 03/06/2019 HISTORY: Confusion, dizziness CT DLP: 1090.4 mGycm. Automated Exposure Control for Dose Reduction was Utilized. TECHNIQUE: CT scan of the head is performed without contrast. COMPARISON: None FINDINGS: There is no acute intracranial hemorrhage or midline shift identified. There is diffuse v entricular and sulcal prominence consistent with diffuse age-related cerebral atrophy. There is low- attenuation in the periventricular white matter consistent with chronic small vessel ischemic change. The globes are intact. Mucosal polyp or retention cyst in the medial right maxillary sinus. IMPRESSION: No acute intracranial hemorrhage or midline shift. There is diffuse age-related cerebra l atrophy and chronic small vessel ischemic change noted.
[2019-03-06 15:20] LABS: ALT 21 U/L (21-72); AST 22 U/L (17-59); African American GFR (CKD) >90 (>60 ml/min/1.73 sqM); Albumin 4.3 g/dL (3.5-5.0); Alkaline Phosphatase 65 U/L (38-126); Anion Gap 10 mmol/L; Blood Urea Nitrogen 18 mg/dL (9-20); Calcium 9.1 mg/dL (8.4-10.2); Carbon Dioxide 27 mmol/L (22-30); Chloride 103 mmol/L (98-107); Glucose 98 mg/dL (74-99); Non-African American GFR(CKD) 81 (>60 ml/min/1.73 sqM); Potassium 4.4 mmol/L (3.5-5.1); Sodium 140 mmol/L (137-145); Total Bilirubin 0.5 mg/dL (0.2-1.3); Total Protein 7.2 g/dL (6.3-8.2)
[2019-03-06 16:54] VITALS: BP 172/75; PULSE 60; RESP 16; TEMP 98.4
== END 2019-03-06 17:00 | disposition home or self-care (01) ==
LOC: EC 13:37
DX: R42 Dizziness and giddiness (principal); R53.1 Weakness; R41.0 Disorientation, unspecified; I25.119 Atherosclerotic heart disease of native coronary artery with unspecified angina pectoris; Z79.82 Long term (current) use of aspirin; Z79.899 Other long term (current) drug therapy; Z87.891 Personal history of nicotine dependence; Z95.5 Presence of coronary angioplasty implant and graft
CPT/HCPCS: 36415; 70450; 71046; 80053; 81003; 84484; 85025; 93005; 96360; 99285

== ENCOUNTER → 2019-03-26 | Outpatient (CLI) | payer MEDICARE ==
--- NOTE | 2019-03-26 13:31 | US ---
EXAMINATION TYPE: US carotid duplex BILAT DATE OF EXAM: 03/26/2019 COMPARISON: NONE CLINICAL HISTORY: R41.3 other amnesia. EXAM MEASUREMENTS: RIGHT: Peak Systolic Velocity (PSV) cm/sec ----- Right CCA: 88.6 ----- Right ICA: 81.5 ----- Right ECA: 50.1 ICA/CCA ratio: 1.1 RIGHT: End Diastole cm/sec ----- Right CCA: 17.1 ----- Right ICA: 30.7 ----- Right ECA: 0.0 LEFT: Peak Systolic Velocity (PSV) cm/sec ----- Left CCA: 97.1 ----- Left ICA: 94.1 ----- Left ECA: 24.3 ICA/CCA ratio: 1.1 LEFT: End Diastole cm/sec ----- Left CCA: 19.3 ----- Left ICA: 28.3 ----- Left ECA: 0.0 VERTEBRALS (direction of flow): Right Vertebral: Antegrade Left Vertebral: Antegrade Rhythm: Normal Minimal plaque, No significant velocity elevations IMPRESSION: Mild degree of grayscale atheromatous plaquing with no sonographically evident hemodynam ically significant stenosis within either visualized carotid arterial system. Criteria for Assigning % of Stenosis / Diameter reduction (Estimation based on the indirect measurements of the internal carotid artery velocities (ICA PSV). 1. Normal (no stenosis)=ICA PSV < 125 cm/s: ratio < 2.0: ICA EDV<40 cm/s. 2. Less than 50% stenosis=ICA PSV < 125 cm/s: ratio < 2.0: ICA EDV<40 cm/s. 3. 50 to 69% stenosis=ICA PSV of 125 to 230 cm/s: ration 2.0 ? 4.0: ICA EDV 40-100 cm/s. 4. Greater than 70% stenosis to near occlusion= ICA PSV > 230 cm/s: ratio > 4.0: ICA EDV > 100 cm/s. 5. Near occlusion= ICA PSV velocities may be low or undetectable: variable ratio and ICA EDV. 6. Total occlusion=unable to detect flow.
--- NOTE | 2019-03-27 14:12 | EEG ---
ELECTROENCEPHALOGRAM REPORT PROCEDURE DATE: 03/27/2019. ELECTROENCEPHALOGRAM (EEG) REPORT: TECHNIQUE: A routine 18 channel EEG was performed with video using the 10/20 international placement system. HISTORY: Memory loss, patient is fatigued. CURRENT MEDICATIONS: Unknown. STUDY DURATION: 25 minutes. FINDINGS: BACKGROUND: The background activity consisted of 7 to 8 hertz rhythmic waveforms, symmetric through both posterior quadrants. ACTIVATION: HYPERVENTILATION: Not performed. PHOTIC STIMULATION: No driving seen. SLEEP: Drowsy. ABNORMALITIES: Intermittent diffuse 5-7 hertz polymorphic theta range slowing was seen. IMPRESSION: Mildly abnormal EEG. The intermittent diffuse polymorphic theta range slowing mentioned above is not epileptiform in nature. In combination with the slow background, these findings indicate mild diffuse cerebral dysfunction. No seizures were recorded. No epileptiform activity was present. MMODL / IJN: [id number] /
== END ==
LOC: NEUROMAIN 10:27
PROVIDERS: ATTEND Family Medicine
DX: R41.3 Other amnesia (principal)
CPT/HCPCS: 93880; 95816

== ENCOUNTER → 2019-03-27 | Outpatient (CLI) | payer MEDICARE ==
--- NOTE | 2019-03-27 14:50 | MR ---
EXAMINATION TYPE: MR brain wo/w con DATE OF EXAM: 03/27/2019 COMPARISON: CT brain dated 03/06/2019 HISTORY: Dizziness with amnesia TECHNIQUE: Multiplanar, multisequence images of the brain and brainstem is performed without and with IV contras t, utilizing 7 mL intravenous Gadavist . FINDINGS: Diffusion weighted images demonstrate no evidence of a recent infarct or other diffusion abnormality . There is no extra-axial fluid collection. There are multiple subcentimeter foci of T2/FLAIR hyperi ntensity within the periventricular/subcortical white matter. This is overall mild burden with the la rgest lesion in the right posterior frontal lobe measuring only 5 mm.. The ventricular system and ci sternal spaces are symmetrically prominent compatible with mild age-related volume loss. Midline structures demonstrate normal morphology. The craniocervical junction appears within normal limits. Post contrast images demonstrate no abnormal enhancement. Incidentally noted origin of the right posterior cerebral artery, normal anatomic variant. The dural venous sinuses appear patent . The visualized sinuses demonstrate polypoid mucosal thickening versus mucosal retention cysts of th e bilateral maxillary sinuses measuring up to 1.7 cm on the right. There is mild mucosal thickening w ithin the frontal and ethmoid sinuses. Sphenoid sinuses and mastoid air cells appear well aerated. IMPRESSION: 1. No acute infarct, midline shift or mass effect. 2. Mild burden nonspecific white matter change, most commonly on the basis of microangiopathy. No abn ormal intracranial enhancement is seen. No suspicious intracranial enhancing mass. 3. Polypoid mucosal thickening of the maxillary sinuses versus mucosal retention cysts and mild mucos al thickening in the ethmoid and frontal sinuses.
== END | disposition home or self-care (01) ==
LOC: RADMRIMAIN 11:20
PROVIDERS: ATTEND Family Medicine
DX: R90.89 Other abnormal findings on diagnostic imaging of central nervous system (principal)
CPT/HCPCS: 70553; A9585

== ENCOUNTER → 2019-05-22 | Outpatient (CLI) | payer MEDICARE ==
--- NOTE | 2019-05-22 18:04 | CONS ---
CONSULTATION DATE OF SERVICE: 05/22/2019 68-year-old gentleman has been evaluated in Sleep Center for tiredness and sleepiness during the day and multiple awakenings from sleep, twitching of his legs during the sleep. HISTORY OF PRESENT ILLNESS/SLEEP-WAKE EVALUATION: SLEEP SCHEDULE: Patient's usual sleep schedule from 11 p.m. to 7 a.m. FALLING ASLEEP: Usually no problems with falling asleep. No TV in bedroom. DURING SLEEP: He sleeps on the side position with his . According her, he snores, grinding teeth, has episodes of twitching legs and sleep talking. The patient wakes up 3 times with nocturia and sometimes dryness in the mouth. DURING THE DAY/SLEEP WAKE EVALUATION: In the morning, he wakes up tired, has difficulties to pay attention, falling asleep during the day, has problems with memory, concentration, and anxiety. [place] Sleepiness Scale increased to 10. The patient takes up to 4 naps during the day at 10:00 am, 1:00 pm and 4:00 pm. He sometimes feels refreshed after naps. He may see vivid dreams during naps. No history of hypnagogic hallucinations, sleep paralysis or cataplexy. PAST MEDICAL HISTORY: Positive feeling of pressure in the head. PAST SURGICAL HISTORY: Past surgical history none. MEDICATIONS: None at the present time. SOCIAL HISTORY: Positive for smoking for about 25 years, less than 1 pack a day. Quit 20 years ago. Alcohol consumption practically none. REVIEW OF SYSTEMS: Awakenings from sleep, tiredness and sleepiness during the day, twitching at night. He is feeling pressure in his head after sleep. His feeling of pressure in his improving during the sleep. FAMILY HISTORY: Positive for asthma, sinus problems, headaches, thyroid problems. PHYSICAL EXAM: gentleman without distress. BP 154/84, HR 82, RR 12, height 5 feet 8-1/2 inches, weight 159.8. Body mass index 23.8, temperature 98.1. Oxygen saturation at room air 97%. Oropharynx low position of soft palate. Mallampati 4. Some restriction of nasal breathing. Neck 15-1/2 inches in circumference. NECK: Supple, no JVD. Thyroid is not palpable. LUNGS: Clear to percussion and to auscultation. Good air exchange. No wheezing or rhonchi. HEART: S1, S2 regular. No murmurs, gallops, or rubs. ABDOMEN: Soft and nontender. Bowel sounds are present. No organomegaly appreciated. EXTREMITIES: No clubbing or cyanosis. PROOF PASSER: Awake, alert, and oriented X3. Cranial nerves 2 to 7 intact. There is no fasciculation or atrophy. noted. No focal deficits observed. IMPRESSION: 1. Snoring. Low position of soft palate, Mallampati 4, multiple awakenings from sleep with nocturia, excessive daytime sleepiness. [place] Sleepiness Scale is 10. Possible obstructive sleep apnea-hypopnea syndrome. 2. Significant amount of twitching during the sleep. Periodic limb movements. 3. Excessive daytime sleepiness. [place] Sleepiness Scale is 10. The patient takes 3 naps every day. May see vivid dreams during the nap. Differential diagnosis include hypersomnia. 4. Restless leg symptoms. 5. Restriction of nasal breathing. 6. Increasing blood pressure in the office today. PLAN: 1. Polysomnography for evaluation of patient's breathing during sleep and also to check for periodic limb movements. 2. CPAP/BiPAP titration if sleep study confirms obstructive sleep apnea-hypopnea syndrome. 3. Preferable position during sleep on the side. 4. No driving if patient feels any sleepiness. 5. I will see patient for follow up visit to explain results of testing and following plan. 6. Multiple sleep latency test if the sleep study will be negative for significant medical abnormalities of sleep. Thank you very much for referring this patient for consultation. Sincerely, Taurus Conroy MD, PhD, FAASM Diplomat of [employer] Professor Of Communication And Writing of [facility] [place] MMODL / PATTIN: [id number] /
== END ==
LOC: SLEEP 11:11
PROVIDERS: ATTEND Internal Medicine
DX: G47.10 Hypersomnia, unspecified (principal); G25.81 Restless legs syndrome; J98.8 Other specified respiratory disorders; R06.83 Snoring; R35.1 Nocturia; R03.0 Elevated blood-pressure reading, without diagnosis of hypertension; Z87.891 Personal history of nicotine dependence
CPT/HCPCS: 99211

== ENCOUNTER → 2019-07-10 | Outpatient (CLI) | payer MEDICARE ==
--- NOTE | 2019-07-10 12:52 | SFUN ---
SLEEP CENTER FOLLOW UP NOTE DATE OF SERVICE: 07/10/2019 This 68-year-old gentleman had been followed in the sleep center to discuss results of the sleep study and follow plan. Diagnostic polysomnogram which was done on 06/22/2019 did not show any significant respiratory abnormalities. Apnea-hypopnea index 2.2, although in REM sleep slightly increased to 11.3. Lowest oxygen was 85%, but according to the computer oxygen never came below 88% at the same time. So oxygen for 0.0 minutes was below 88%. Heart rate in the range between 45 and 75. Extremely severe periodic limb movements had been documented during the sleep study, 136.2 per hour with 1.9 microarousals per hour. Multiple sleep on the following day consisted from 5 naps. Patient fell asleep on 4 naps, but did not fall asleep on one nap. Subsequently mean sleep latency was 8.2, which is still shorter than normal and does indicate sleepiness. [place] Sleepiness Scale today is 12. MEDICATIONS: None at the present time. PHYSICAL EXAMINATION: During physical exam, patient in no distress. VITAL SIGNS: BP 133/85, HR 80, RR 14, temperature 97.1, oxygen saturation at room air 97%. HEENT: PERRLA, EOMI. Oropharynx moderately low position of soft palate. NECK: Supple, no JVD. Thyroid is not palpable. LUNGS: Clear to percussion and to auscultation. Good air exchange. No wheezing or rhonchi. HEART: S1, S2 regular. No murmurs, gallops, or rubs. ABDOMEN: Soft and nontender. Bowel sounds are present. No organomegaly appreciated. EXTREMITIES: No clubbing or cyanosis. DERRICK HELPER: Awake, alert, and oriented X3. Cranial nerves 2 to 7 intact. There is no fasciculation or atrophy. noted. No focal deficits observed. IMPRESSION: 1. No significant respiratory abnormalities have been documented during the sleep study. Normal total apnea-hypopnea index. Apnea-hypopnea index slightly increase in REM sleep, but it is not considered to be indication for treatment by today's criteria. 2. Extremely severe periodic limb movements have been documented during the sleep study; 136.2 per hour but only with 1.9 microarousals per hour, but I still believe that that could be the reason for sleepiness during the day, which has been confirmed by multiple sleep latency test. 3. Episodes of tremor. 4. Increasing blood pressure in the office during previous visit, and also episodes of increasing blood pressure while patient stayed for multiple sleep latency test. PLAN: 1. I will start the patient on dopamine antagonist, Mirapex 0.125 mg 1 to 2 tablets at bedtime. 2. Follow up with neurologist. Patient was scheduled for CT scan of the head in July. 3. Sleep hygiene with regular time in bed for 7-1/2 to 8 hours. 4. Precautions related to driving. No driving if feeling sleepiness. 5. Please check iron profile including ferritin level, low level of iron may increase risk for periodic limb movements. Thank you very much for allowing me to participate in the management of your patient. Sincerely, Taurus Conroy MD, PhD, FAASM Diplomat of [employer] Folded Towel Machine Operator of [facility] [place] MMODL / ELÍAS: [id number] /
== END | disposition home or self-care (01) ==
LOC: SLEEP 11:27
PROVIDERS: ATTEND Internal Medicine
DX: G47.61 Periodic limb movement disorder (principal); G25.2 Other specified forms of tremor; I10 Essential (primary) hypertension

== ENCOUNTER → 2019-07-29 | Outpatient (CLI) | payer MEDICARE ==
[~2019-07-29] MED LIST: IODINE/POTASS IOD (LUGOLS) BOTTLE TOPICAL ONE
--- NOTE | 2019-07-31 08:56 | NM ---
EXAMINATION TYPE: NM DatScan Brain SPECT DATE OF EXAM: 07/29/2019 COMPARISON: NONE HISTORY: Tremors and short-term memory loss TECHNIQUE: 10 drops of Lugol's solution was administered 1 hour prior to injection as a thyroid bloc montez agent. After the administration of 4.18 mCi I-123 Ioflupane DaTscan. Images obtained 3 hours p ost injection. SPECT images of the brain were acquired with axial and coronal reconstructions. FINDINGS: The DaTSCAN demonstrates reduced uptake of tracer throughout the striata. This appearance is consistent with the bilateral loss of the pre-synaptic dopaminergic terminals. IMPRESSION: In movement disorders, this abnormal appearance is consistent with a diagnosis of either idiopathic P arkinson's disease or or Parkinsonian syndrome. In dementia, this abnormal appearance is consistent with a diagnosis of dementia with Lewy bodies idi opathic Parkinson's disease, Parkinson?s dementia complex or Parkinsonian syndrome.
== END | disposition home or self-care (01) ==
LOC: RADNMMAIN 10:48
PROVIDERS: ATTEND Psychiatry & Neurology Neurology
DX: R94.02 Abnormal brain scan (principal)
CPT/HCPCS: 78803; A9584

== ENCOUNTER 2023-03-29 15:23 | Emergency (ER) | payer MEDICARE ==
--- NOTE | 2023-03-29 16:03 | ED ---
General Adult HPI - General Chief complaint: Urogenital Stated complaint: lower abd pain Time Seen by Provider: 03/29/23 15:30 Source: patient, family, RN notes reviewed, old records reviewed Mode of arrival: wheelchair Limitations: no limitations - History of Present Illness Initial comments: This is a 72-year-old male who presents in the emergency department complaining of inability to urinate since this morning. Patient states she has some suprapu bic fullness and he complains that it greenberg when he urinates prior to this episode of hypertension. Patient denies any new back pain. Patient denies any fever chills per patient denies any nausea vomiting diarrhea. Patient denies any other symptoms at this time. - Related Data Home Medications Medication Instructions Recorded Confirmed Aspirin 81 mg PO DAILY 08/03/16 08/03/16 Atorvastatin [Lipitor] 10 mg PO HS@1900 08/03/16 08/03/16 Diltiazem Cd [Cardizem CD] 120 mg PO DAILY 08/03/16 08/03/16 Previous Rx's Medication Instructions Recorded Isosorbide Mononitrate ER [Imdur] 30 mg PO DAILY #30 tab.er.24h 08/05/16 Nitroglycerin Sl Tabs [Nitrostat] 0.4 mg SUBLINGUAL Q5M PRN #25 tab 08/05/16 Allergies Allergy/AdvReac Type Severity Reaction Status Date / Time No Known Allergies Allergy Verified 03/06/19 14:02 Review of Systems ROS Statement: Those systems with pertinent positive or pertinent negative responses have been documented in the HPI. ROS Other: All systems not noted in ROS Statement are negative. Past Medical History Past Medical History: Coronary Artery Disease (CAD), Chest Pain / Angina, Prostate Disorder Additional Past Medical History / Comment(s): BPH, chronic low back pain, recent root canal-was on ABX. History of Any Multi-Drug Resistant Organisms: None Reported Past Surgical History: Heart Catheterization Additional Past Surgical History / Comment(s): 2013 Cardiac cath-treated medically, wisdom teeth extraction, VASECTOMY Past Anesthesia/Blood Transfusion Reactions: No Reported Reaction Past Psychological History: No Psychological Hx Reported Past Alcohol Use History: Rare Past Drug Use History: None Reported - Past Family History Father Family Medical History: Coronary Artery Disease (CAD) Additional Family Medical History / Comment(s): Father at 88 yrs of age. He had heart problems late in life. Mother Family Medical History: No Reported History Additional Family Medical History / Comment(s): Mother was healthy. She at the age of 94 yrs. General Exam - General Exam Comments Initial Comments: GENERAL: Patient is well-developed and well-nourished. Patient is nontoxic and well- hydrated and is in mild distress. ENT: Neck is soft and supple. No significant lymphadenopathy is noted. Oropharynx is clear. Moist mucous membranes. Neck has full range of motion without eliciting any pain. EYES: The sclera were anicteric and conjunctiva were pink and moist. Extraocular movements were intact and pupils were equal round and reactive to light. Eyelids were unremarkable. PULMONARY: Unlabored respirations. Good breath sounds bilaterally. No audible rales rhonchi or wheezing was noted. CARDIOVASCULAR: There is a regular rate and rhythm without any murmurs gallops or rubs. ABDOMEN: Patient has mild tenderness in the suprapubic region and some fullness. SKIN: Skin is clear with no lesions or rashes and otherwise unremarkable. NEUROLOGIC: Patient is alert and oriented x3. Cranial nerves II through XII are grossly intact. Motor and sensory are also intact. Normal speech, volume and content. Symmetrical smile. MUSCULOSKELETAL: Normal extremities with adequate strength and full range of motion. LYMPHATICS: No significant lymphadenopathy is noted PSYCHIATRIC: Normal psychiatric evaluation. Limitations: no limitations Course Vital Signs 03/29/23 03/29/23 15:29 16:46 Temperature 98 F Pulse Rate 67 54 L Respiratory 16 16 Rate Blood Pressure 148/90 145/80 O2 Sat by Pulse 99 99 Oximetry Medical Decision Making - Medical Decision Making Was pt. sent in by a medical professional or institution (, PA, STOREROOM SUPERVISOR, urgent care, hospital, or senior care...) When possible be specific @ -No Did you speak to anyone other than the patient for history (EMS, parent, family, police, friend...)? What history was obtained from this source @ -No Did you review nursing and triage notes (agree or disagree)? Why? @ -I reviewed and agree with nursing and triage notes Were old charts reviewed (outside hosp., previous admission, EMS record, old EKG, old radiological studies, urgent care reports/EKG's, senior care records)? Report findings @ -No old charts were reviewed Differential Diagnosis (chest pain, altered mental status, abdominal pain women, abdominal pain men, vaginal bleeding, weakness, fever, dyspnea, syncope, headache, dizziness, GI bleed, back pain, seizure, CVA, palpatations, mental health, musculoskeletal)? @ -Differential Abdominal Pain Men: Appendicitis, cholecystitis, diverticulosis, ischemic bowel, pancreatitis, he patitis, urinary retention, UTI, gastroenteritis, AAA, incarcerated hernia, bowel obstruction, constipation, inflammatory bowel, hepatitis, peptic ulcer disease, splenic infarction, perforated viscus, testicular torsion, this is not meant to be an all-inclusive list EKG interpreted by me (3pts min.). @ -As above X-rays interpreted by me (1pt min.). @ -None done CT interpreted by me (1pt min.). @ -None done U/S interpreted by me (1pt. min.). @ -None done What testing was considered but not performed or refused? (CT, X-rays, U/S, labs)? Why? @ -None What meds were considered but not given or refused? Why? @ -None Did you discuss the management of the patient with other professionals (professionals i.e. , PA, STOREROOM SUPERVISOR, lab, RT, psych nurse, social service assistant, disaster recovery specialist, teacher, industrial relations officer, case sealer)? Give summary @ -No Was smoking cessation discussed for >3mins.? @ -No Was critical care preformed (if so, how long)? @ -No Were there social determinants of health that impacted care today? How? (Homelessness, low income, unemployed, alcoholism, drug addiction, transportation, low edu. Level, literacy, decrease access to med. care, long-term, rehab)? @ -No Was there de-escalation of care discussed even if they declined (Discuss DNR or withdrawal of care, Hospice)? DNR status @ -No What co-morbidities impacted this encounter? (DM, HTN, Smoking, COPD, CAD, Cancer, CVA, ARF, Chemo, Hep., AIDS, mental health diagnosis, sleep apnea, morbid obesity)? @ -None Was patient admitted / discharged? Hospital course, mention meds given and route, prescriptions, significant lab abnormalities, going to OR and other pertinent info. @ -Did not have any signs of infection. Lab work looks normal on this patient and patient will follow-up with urology. Undiagnosed new problem with uncertain prognosis? @ -No Drug Therapy requiring intensive monitoring for toxicity (Heparin, Nitro, Insulin, Cardizem)? @ -No Were any procedures done? @ -No Diagnosis/symptom? @ -Urinary retention Acute, or Chronic, or Acute on Chronic? @ -Acute Uncomplicated (without systemic symptoms) or Complicated (systemic symptoms)? @ -Uncomplicated Side effects of treatment? @ -No Exacerbation, Progression, or Severe Exacerbation? @ -No Poses a threat to life or bodily function? How? (Chest pain, USA, [place], pneumonia, PE, COPD, DKA, ARF, appy, cholecystitis, CVA, Diverticulitis, Homicidal, Suicidal, threat to staff... and all critical care pts) @ -No - Lab Data Result diagrams: 03/29/23 16:10 03/29/23 16:10 Lab Results 03/29/23 03/29/23 03/29/23 Range/Units 16:10 16:10 16:10 WBC 6.5 (3.8-10.6) k/uL RBC 4.18 L (4.30-5.90) m/uL Hgb 13.4 (13.0-17.5) gm/dL Hct 38.4 L (39.0-53.0) % MCV 91.9 (80.0-100.0) fL MCH 32.0 (25.0-35.0) pg MCHC 34.8 (31.0-37.0) g/dL RDW 12.8 (11.5-15.5) % Plt Count 183 (150-450) k/uL MPV 7.9 Neutrophils % 75 % Lymphocytes % 13 % Monocytes % 8 % Eosinophils % 2 % Basophils % 0 % Neutrophils # 4.9 (1.3-7.7) k/uL Lymphocytes # 0.9 L (1.0-4.8) k/uL Monocytes # 0.5 (0-1.0) k/uL Eosinophils # 0.2 (0-0.7) k/uL Basophils # 0.0 (0-0.2) k/uL Sodium 133 L (137-145) mmol/L Potassium 4.6 (3.5-5.1) mmol/L Chloride 101 (98-107) mmol/L Carbon Dioxide 26 (22-30) mmol/L Anion Gap 6 mmol/L BUN 24 H (9-20) mg/dL Creatinine 0.85 (0.66-1.25) mg/dL Est GFR (CKD-EPI)AfAm >90 (>60 ml/min/1.73 sqM) Est GFR (CKD-EPI)NonAf 86 (>60 ml/min/1.73 sqM) Glucose 97 (74-99) mg/dL Calcium 8.9 (8.4-10.2) mg/dL Magnesium 2.3 (1.6-2.3) mg/dL Total Bilirubin 0.8 (0.2-1.3) mg/dL AST 30 (17-59) U/L ALT 18 (4-49) U/L Alkaline Phosphatase 72 (38-126) U/L Total Protein 6.6 (6.3-8.2) g/dL Albumin 3.9 (3.5-5.0) g/dL Urine Color Colorless Urine Appearance Clear (Clear) Urine pH 6.5 (5.0-8.0) Ur Specific [place] 1.010 (1.001-1.035) Urine Protein Negative (Negative) Urine Glucose (UA) Negative (Negative) Urine Ketones Negative (Negative) Urine Blood Trace H (Negative) Urine Nitrite Negative (Negative) Urine Bilirubin Negative (Negative) Urine Urobilinogen <2.0 (<2.0) mg/dL Ur Leukocyte Esterase Negative (Negative) Urine RBC 8 H (0-5) /hpf Urine WBC <1 (0-5) /hpf Urine Mucus Rare H (None) /hpf Disposition Clinical Impression: Urinary retention Disposition: HOME SELF-CARE Instructions (If sedation given, give patient instructions): Urinary Retention in Men (ED) Is patient prescribed a controlled substance at d/c from ED?: No Referrals: Carroll Cai MD [STAFF PHYSICIAN] - 1-2 days Time of Disposition: 18:13
[2023-03-29 16:31] LABS: Basophils % (A) 0 %; Eosinophils # (A) 0.2 k/uL (0-0.7); Eosinophils % (A) 2 %; HCT 38.4 % (39.0-53.0); HGB 13.4 gm/dL (13.0-17.5); Lymphocytes # (A) 0.9 k/uL (1.0-4.8); Lymphocytes % (A) 13 %; MCHC 34.8 g/dL (31.0-37.0); MCV 91.9 fL (80.0-100.0); Mean Platelet Volume 7.9; Monocytes # (A) 0.5 k/uL (0-1.0); Monocytes % (A) 8 %; Neutrophils # (A) 4.9 k/uL (1.3-7.7); Neutrophils % (A) 75 %; Platelet Count 183 k/uL (150-450); RBC 4.18 m/uL (4.30-5.90); RDW 12.8 % (11.5-15.5); WBC 6.5 k/uL (3.8-10.6)
[2023-03-29 16:47] VITALS: PULSE 54
[2023-03-29 16:58] LABS: ALT 18 U/L (4-49); AST 30 U/L (17-59); African American GFR (CKD) >90 (>60 ml/min/1.73 sqM); Albumin 3.9 g/dL (3.5-5.0); Alkaline Phosphatase 72 U/L (38-126); Anion Gap 6 mmol/L; Blood Urea Nitrogen 24 mg/dL (9-20); Calcium 8.9 mg/dL (8.4-10.2); Carbon Dioxide 26 mmol/L (22-30); Chloride 101 mmol/L (98-107); Glucose 97 mg/dL (74-99); Magnesium 2.3 mg/dL (1.6-2.3); Non-African American GFR(CKD) 86 (>60 ml/min/1.73 sqM); Potassium 4.6 mmol/L (3.5-5.1); Sodium 133 mmol/L (137-145); Total Bilirubin 0.8 mg/dL (0.2-1.3); Total Protein 6.6 g/dL (6.3-8.2)
[2023-03-29 17:17] LABS: Appearance,Urine Clear (Clear); Bilirubin,Urine Negative (Negative); Blood,Urine Trace (Negative); Color,Urine Colorless; Glucose,Urine (UA) Negative (Negative); Ketones,Urine Negative (Negative); Leukocyte Esterase,Urine Negative (Negative); Mucus,Urine Rare /hpf; Nitrite,Urine Negative (Negative); PH, Urine 6.5 (5.0-8.0); Protein,Urine Negative (Negative); RBC,Urine 8 /hpf (0-5); Urobilinogen,Urine <2.0 mg/dL (<2.0); WBC,Urine <1 /hpf (0-5)
[2023-03-29 18:14] VITALS: BP 140/80; RESP 18; TEMP 98.3
== END 2023-03-29 18:45 | disposition home or self-care (01) ==
LOC: EC 15:23
DX: R33.9 Retention of urine, unspecified (principal); I10 Essential (primary) hypertension; I25.10 Atherosclerotic heart disease of native coronary artery without angina pectoris; Z79.82 Long term (current) use of aspirin
CPT/HCPCS: 36415; 51702; 80053; 81001; 83735; 85025; 99283; 99284

== ENCOUNTER 2023-04-09 09:39 | Observation (INO) | payer MEDICARE ==
--- NOTE | 2023-04-09 10:46 | ED ---
General Adult HPI - General Chief complaint: Weakness Stated complaint: Increase Cath Pain Source: patient Mode of arrival: wheelchair Limitations: no limitations - History of Present Illness Initial comments: 72 year old male presents to the emergency department for chief complaint of catheter problems. He reports that he has had it in for 2 weeks but has since gotten painful. He also admits to increased weakness and frequency of falls. He reports that he has had 2 falls over the past 3 days. He states that he feels unsteady on his feet. Denies fever. He has a history of parkinson's. - Related Data Home Medications Medication Instructions Recorded Confirmed Aspirin EC [Ecotrin Low Dose] 81 mg PO DAILY 04/09/23 04/09/23 Allergies Allergy/AdvReac Type Severity Reaction Status Date / Time No Known Allergies Allergy Verified 04/09/23 14:24 Review of Systems ROS Statement: Those systems with pertinent positive or pertinent negative responses have been documented in the HPI. ROS Other: All systems not noted in ROS Statement are negative. Past Medical History Past Medical History: Coronary Artery Disease (CAD), Chest Pain / Angina, Prostate Disorder Additional Past Medical History / Comment(s): BPH, chronic low back pain, recent root canal-was on ABX. History of Any Multi-Drug Resistant Organisms: None Reported Past Surgical History: Heart Catheterization Additional Past Surgical History / Comment(s): 2013 Cardiac cath-treated medically, wisdom teeth extraction, VASECTOMY Past Anesthesia/Blood Transfusion Reactions: No Reported Reaction Past Psychological History: No Psychological Hx Reported Smoking Status: Never smoker Past Alcohol Use History: Rare Past Drug Use History: None Reported - Past Family History Father Family Medical History: Coronary Artery Disease (CAD) Additional Family Medical History / Comment(s): Father at 88 yrs of age. He had heart problems late in life. Mother Family Medical History: No Reported History Additional Family Medical History / Comment(s): Mother was healthy. She at the age of 94 yrs. General Exam - General Exam Comments Initial Comments: Visual Physical Exam Vital signs reviewed General: Well-appearing, nontoxic, no acute distress. Head: Normocephalic, atraumatic Eyes: PERRLA, EOMI ENT: Airway patent Chest: Nonlabored breathing Skin: No visual rash, normal skin tone Neuro: Alert and oriented 3 Musculoskeletal: No gross abnormalities Limitations: no limitations General appearance: alert, in no apparent distress Head exam: Present: atraumatic, normocephalic, normal inspection Eye exam: Present: normal appearance, PERRL, EOMI. Absent: scleral icterus, co njunctival injection, periorbital swelling ENT exam: Present: normal exam, mucous membranes moist Neck exam: Present: normal inspection Respiratory exam: Present: normal lung sounds bilaterally. Absent: respiratory distress, wheezes, rales, rhonchi, stridor Cardiovascular Exam: Present: regular rate, normal rhythm, normal heart sounds. Absent: systolic murmur, diastolic murmur, rubs, gallop, clicks GI/Abdominal exam: Present: soft, normal bowel sounds. Absent: distended, tenderness, guarding, rebound, rigid Extremities exam: Present: normal capillary refill, other (radial pulses 2+, resting tremor) Back exam: Present: normal inspection Neurological exam: Present: alert, oriented X3. Absent: normal gait (unsteady gait) Psychiatric exam: Present: normal affect, normal mood Skin exam: Present: warm, dry, intact, normal color. Absent: rash Course Vital Signs 04/09/23 04/09/23 04/09/23 09:44 11:56 12:00 Temperature 98.1 F Pulse Rate 90 68 65 Respiratory 20 18 18 Rate Blood Pressure 131/77 139/101 O2 Sat by Pulse 99 99 99 Oximetry 04/09/23 12:10 Temperature Pulse Rate 82 Respiratory 17 Rate Blood Pressure 142/87 O2 Sat by Pulse 98 Oximetry Medical Decision Making - Medical Decision Making I preformed the quick note portion of the chart. Electronically signed by Darcy Lucas PA-C Was pt. sent in by a medical professional or institution ([facility], [employer], urgent care, hospital, or prison...) When possible be specific @ -No Did you speak to anyone other than the patient for history (EMS, parent, family, police, friend...)? What history was obtained from this source @ -No Did you review nursing and triage notes (agree or disagree)? Why? @ -I reviewed and agree with nursing and triage notes Were old charts reviewed (outside hosp., previous admission, EMS record, old EKG, old radiological studies, urgent care reports/EKG's, prison records)? Report findings @ -No old charts were reviewed Differential Diagnosis (chest pain, altered mental status, abdominal pain women, abdominal pain men, vaginal bleeding, weakness, fever, dyspnea, syncope, headache, dizziness, GI bleed, back pain, seizure, CVA, palpatations, mental health, musculoskeletal)? @ -Differential Weakness: Hypoglycemia, shock, sepsis, hyponatremia, anemia, infection, VA, ETOH, adverse medicine reaction, overdose, stroke, this is not meant to be an all-inclusive list. EKG interpreted by me (3pts min.). @ -EKG at 0957 shows sinus rhythm rate 88, NV 154, QRS 72 X-rays interpreted by me (1pt min.). @ -Chest X-ray shows no evidence of acute process CT interpreted by me (1pt min.). @ -None done U/S interpreted by me (1pt. min.). @ -None done What testing was considered but not performed or refused? (CT, X-rays, U/S, labs)? Why? @ -None What meds were considered but not given or refused? Why? @ -None Did you discuss the management of the patient with other professionals (professionals i.e. , PA, [employer], lab, RT, psych nurse, social media manager, chief data officer, teacher, gunnery/ordnance officer, case finishing machine adjuster)? Give summary @ -Management discussed with Dr. Isidro who is accepting of the admission Was smoking cessation discussed for >3mins.? @ -No Was critical care preformed (if so, how long)? @ -No Were there social determinants of health that impacted care today? How? (Homelessness, low income, unemployed, alcoholism, drug addiction, transportation, low edu. Level, literacy, decrease access to med. care, alf, rehab)? @ -No Was there de-escalation of care discussed even if they declined (Discuss DNR or withdrawal of care, Hospice)? DNR status @ -No What co-morbidities impacted this encounter? (DM, HTN, Smoking, COPD, CAD, Cancer, CVA, ARF, Chemo, Hep., AIDS, mental health diagnosis, sleep apnea, morbid obesity)? @ -None Was patient admitted / discharged? Hospital course, mention meds given and route, prescriptions, significant lab abnormalities, going to OR and other pertinent info. @ -Admitted. Patient presented to emergency department chief complaint of increasing weakness and falls. Patient has a history of Parkinson's disease. He states that he has been falling more frequently than usual. He is very unsteady on his feet. When attempted to walk, patient was unsteady likely due to his parkinsons. He lives with his who is unable to take care of him. He would benefit from PT, OT, placement or home health. Case discussed with Dr. Isidro who is accepting of the admission. Undiagnosed new problem with uncertain prognosis? @ -No Drug Therapy requiring intensive monitoring for toxicity (Heparin, Nitro, Insulin, Cardizem)? @ -No Were any procedures done? @ -No Diagnosis/symptom? @ -generalized weakness Acute, or Chronic, or Acute on Chronic? @ -acute Uncomplicated (without systemic symptoms) or Complicated (systemic symptoms)? @ -uncomplicated Side effects of treatment? @ -No Exacerbation, Progression, or Severe Exacerbation? @ -No Poses a threat to life or bodily function? How? (Chest pain, USA, [place], pneumonia, PE, COPD, DKA, ARF, appy, cholecystitis, CVA, Diverticulitis, Homicidal, Suicidal, threat to staff... and all critical care pts) @ -No - Lab Data Result diagrams: 04/09/23 11:57 04/09/23 11:57 Lab Results 04/09/23 04/09/23 04/09/23 Range/Units 11:57 11:57 11:57 WBC 4.8 (3.8-10.6) k/uL RBC 4.46 (4.30-5.90) m/uL Hgb 13.8 (13.0-17.5) gm/dL Hct 41.3 (39.0-53.0) % MCV 92.5 (80.0-100.0) fL MCH 31.0 (25.0-35.0) pg MCHC 33.5 (31.0-37.0) g/dL RDW 12.7 (11.5-15.5) % Plt Count 194 (150-450) k/uL MPV 7.6 Neutrophils % 73 % Lymphocytes % 16 % Monocytes % 8 % Eosinophils % 2 % Basophils % 0 % Neutrophils # 3.5 (1.3-7.7) k/uL Lymphocytes # 0.7 L (1.0-4.8) k/uL Monocytes # 0.4 (0-1.0) k/uL Eosinophils # 0.1 (0-0.7) k/uL Basophils # 0.0 (0-0.2) k/uL PT 10.7 (9.0-12.0) sec INR 1.0 (<1.2) APTT 26.0 (22.0-30.0) sec Sodium (137-145) mmol/L Potassium (3.5-5.1) mmol/L Chloride (98-107) mmol/L Carbon Dioxide (22-30) mmol/L Anion Gap mmol/L BUN (9-20) mg/dL Creatinine (0.66-1.25) mg/dL Est GFR (CKD-EPI)AfAm (>60 ml/min/1.73 sqM) Est GFR (CKD-EPI)NonAf (>60 ml/min/1.73 sqM) Glucose (74-99) mg/dL Plasma Lactic Acid Piter (0.7-2.0) mmol/L Calcium (8.4-10.2) mg/dL Total Bilirubin (0.2-1.3) mg/dL AST (17-59) U/L ALT (4-49) U/L Alkaline Phosphatase (38-126) U/L Troponin I (0.000-0.034) ng/mL Total Protein (6.3-8.2) g/dL Albumin (3.5-5.0) g/dL Urine Color Light Yellow Urine Appearance Clear (Clear) Urine pH 7.0 (5.0-8.0) Ur Specific [place] 1.014 (1.001-1.035) Urine Protein Negative (Negative) Urine Glucose (UA) Negative (Negative) Urine Ketones Negative (Negative) Urine Blood Negative (Negative) Urine Nitrite Negative (Negative) Urine Bilirubin Negative (Negative) Urine Urobilinogen <2.0 (<2.0) mg/dL Ur Leukocyte Esterase Negative (Negative) 04/09/23 04/09/23 04/09/23 Range/Units 11:57 11:57 11:57 WBC (3.8-10.6) k/uL RBC (4.30-5.90) m/uL Hgb (13.0-17.5) gm/dL Hct (39.0-53.0) % MCV (80.0-100.0) fL MCH (25.0-35.0) pg MCHC (31.0-37.0) g/dL RDW (11.5-15.5) % Plt Count (150-450) k/uL MPV Neutrophils % % Lymphocytes % % Monocytes % % Eosinophils % % Basophils % % Neutrophils # (1.3-7.7) k/uL Lymphocytes # (1.0-4.8) k/uL Monocytes # (0-1.0) k/uL Eosinophils # (0-0.7) k/uL Basophils # (0-0.2) k/uL PT (9.0-12.0) sec INR (<1.2) APTT (22.0-30.0) sec Sodium 138 (137-145) mmol/L Potassium 4.9 (3.5-5.1) mmol/L Chloride 105 (98-107) mmol/L Carbon Dioxide 28 (22-30) mmol/L Anion Gap 5 mmol/L BUN 17 (9-20) mg/dL Creatinine 0.85 (0.66-1.25) mg/dL Est GFR (CKD-EPI)AfAm >90 (>60 ml/min/1.73 sqM) Est GFR (CKD-EPI)NonAf 86 (>60 ml/min/1.73 sqM) Glucose 94 (74-99) mg/dL Plasma Lactic Acid Piter 0.8 (0.7-2.0) mmol/L Calcium 9.0 (8.4-10.2) mg/dL Total Bilirubin 0.9 (0.2-1.3) mg/dL AST 27 (17-59) U/L ALT 19 (4-49) U/L Alkaline Phosphatase 84 (38-126) U/L Troponin I <0.012 (0.000-0.034) ng/mL Total Protein 6.9 (6.3-8.2) g/dL Albumin 4.1 (3.5-5.0) g/dL Urine Color Urine Appearance (Clear) Urine pH (5.0-8.0) Ur Specific [place] (1.001-1.035) Urine Protein (Negative) Urine Glucose (UA) (Negative) Urine Ketones (Negative) Urine Blood (Negative) Urine Nitrite (Negative) Urine Bilirubin (Negative) Urine Urobilinogen (<2.0) mg/dL Ur Leukocyte Esterase (Negative) Disposition Clinical Impression: Generalized weakness Disposition: ADMITTED IP TO THIS HOSP Condition: Stable Is patient prescribed a controlled substance at d/c from ED?: No
[2023-04-09 12:09] LABS: Basophils % (A) 0 %; Eosinophils # (A) 0.1 k/uL (0-0.7); Eosinophils % (A) 2 %; HCT 41.3 % (39.0-53.0); HGB 13.8 gm/dL (13.0-17.5); Lymphocytes # (A) 0.7 k/uL (1.0-4.8); Lymphocytes % (A) 16 %; MCHC 33.5 g/dL (31.0-37.0); MCV 92.5 fL (80.0-100.0); Mean Platelet Volume 7.6; Monocytes # (A) 0.4 k/uL (0-1.0); Monocytes % (A) 8 %; Neutrophils # (A) 3.5 k/uL (1.3-7.7); Neutrophils % (A) 73 %; Platelet Count 194 k/uL (150-450); RBC 4.46 m/uL (4.30-5.90); RDW 12.7 % (11.5-15.5); WBC 4.8 k/uL (3.8-10.6)
[2023-04-09 12:16] LABS: Prothrombin Time 10.7 sec (9.0-12.0)
--- NOTE | 2023-04-09 12:16 | XR ---
EXAMINATION TYPE: XR chest 2V DATE OF EXAM: 04/09/2023 12:09 PM CLINICAL INDICATION:Male, 72 years old with history of Weakness; COMPARISON: Chest radiographs from 03/06/2019. TECHNIQUE: XR chest 2V Frontal and lateral views of the chest. FINDINGS: Lungs/Pleura: There is no evidence of pleural effusion, focal consolidation, or pneumothorax. Pulmonary vascularity: Unremarkable. Heart/mediastinum: Cardiomediastinal silhouette is unremarkable. Atherosclerotic calcifications are seen in the aorta. Musculoskeletal: No acute osseous pathology. IMPRESSION: No acute cardiopulmonary disease/process.
[2023-04-09 12:21] LABS: Appearance,Urine Clear (Clear); Bilirubin,Urine Negative (Negative); Blood,Urine Negative (Negative); Color,Urine Light Yellow; Glucose,Urine (UA) Negative (Negative); Ketones,Urine Negative (Negative); Leukocyte Esterase,Urine Negative (Negative); Nitrite,Urine Negative (Negative); Protein,Urine Negative (Negative); Specific Gravity,Urine 1.014 (1.001-1.035); Urobilinogen,Urine <2.0 mg/dL (<2.0)
[2023-04-09 12:23] LABS: ALT 19 U/L (4-49); AST 27 U/L (17-59); African American GFR (CKD) >90 (>60 ml/min/1.73 sqM); Albumin 4.1 g/dL (3.5-5.0); Alkaline Phosphatase 84 U/L (38-126); Anion Gap 5 mmol/L; Blood Urea Nitrogen 17 mg/dL (9-20); Carbon Dioxide 28 mmol/L (22-30); Chloride 105 mmol/L (98-107); Glucose 94 mg/dL (74-99); Non-African American GFR(CKD) 86 (>60 ml/min/1.73 sqM); Potassium 4.9 mmol/L (3.5-5.1); Sodium 138 mmol/L (137-145); Total Bilirubin 0.9 mg/dL (0.2-1.3); Total Protein 6.9 g/dL (6.3-8.2)
[2023-04-09] MEDS ORDERED: NALOXONE 0.4 MG/ML 1 ML VIAL IV PRN (13:38)
[2023-04-09] MEDS ORDERED: LORazepam 0.5 MG TAB PO PRN (18:34)
[2023-04-09] MEDS ORDERED: LACTULOSE 20 GM/30 ML CUP PO PRN (18:34)
[2023-04-09] MEDS ORDERED: TEMAZEPAM 15 MG CAP PO PRN (18:34)
[2023-04-09] MEDS ORDERED: ACETAMINOPHEN TAB 325 MG TAB PO PRN (18:34)
[2023-04-09] MEDS ORDERED: CALCIUM CARBONATE 500 MG CHEWABLE PO PRN (18:34)
[2023-04-09] MEDS ORDERED: ONDANSETRON 4 MG/2 ML VIAL IVP PRN (18:34)
--- NOTE | 2023-04-09 18:39 | P.HPIM ---
History of Present Illness H&P Date: 04/09/23 Chief Complaint: Weakness fall Pleasant 72-year-old patient was presented to ER. He had a Bejarano catheter placed about 2 weeks ago and due to see the urologist today. Patient also has a movement disorder but apparently not taking any medications. He does use a walker. He is noting that his gait is shuffling. Has started to fall. Patient does have a resting tremor. Forgetful. Denies any fever and chills. No family at the bedside. Review of systems: GEN.: Tired EYES: None HEENT: None NECK: None RESPIRATORY: None CARDIOVASCULAR: None GASTROINTESTINAL: None GENITOURINARY: As above MUSCULOSKELETAL: Some joint pains LYMPHATICS: None HEMATOLOGICAL: None PSYCHIATRY: Forgetful NEUROLOGICAL: Tremor, falls, uses a walker Past medical history to include: CAD, BPH, Social history: Retired. . Smoked for 30 years stopped 24 years ago. Alcohol rarely. Physical examination: VITAL SIGNS: 98.1, 90, 20, 131/77, 97% room air GENERAL: BMI 22.6, sitting on bed awake. EYES: Pupils equal. Conjunctiva normal. HEENT: External appearance of nose and ears normal, oral cavity grossly normal. NECK: JVD not raised; masses not palpable. HEART: First and second heart sounds are normal; no edema. LUNGS: Respiratory rate normal; clear to auscultation. ABDOMEN: Soft, nontender, liver spleen not palpable, no masses palpable. PSYCH: [Patient is able to answer simple questions. But forgetful about details.. MUSCULOSKELETAL:No Clubbing/cyanosis;muscles-grossly intact. OA NEUROLOGICAL: [Cranial nerves grossly intact; no facial asymmetry, beta for mast facies. Resting pin rolling tremor. Rigidity. Bradykinesia LYMPHATICS: No lymph nodes palpable in the axilla and neck INVESTIGATIONS, reviewed in the clinical context: White count 4.8 hemoglobin 13.8 platelets 194 sodium 138 potassium 4.9 creatinine 0.85 Assessment plan: -Increasing fall from Parkinson's disease. PT OT -Parkinson's disease Start Sinemet 25/101 tablet 3 times a day. Consult urology -Moderate to severe cognitive impairment Check B12, thyroid function -BPH causing bladder outflow obstruction. Patient had a Bejarano catheter placed 2 weeks ago. Start Flomax 0.4 mg PC-supper. Trial of DC Bejarano in the morning. Patient was scheduled to see urologist. Consult. -CAD from prior cardiac cath. Aspirin 81 mg a day Discussed with patient. Currently no family at the bedside. If improves may be be able to be discharged tomorrow. Depending on how he does. Past Medical History Past Medical History: Coronary Artery Disease (CAD), Chest Pain / Angina, Prostate Disorder Additional Past Medical History / Comment(s): BPH, chronic low back pain, recent root canal-was on ABX. History of Any Multi-Drug Resistant Organisms: None Reported Past Surgical History: Heart Catheterization Additional Past Surgical History / Comment(s): 2013 Cardiac cath-treated medically, wisdom teeth extraction, VASECTOMY Past Anesthesia/Blood Transfusion Reactions: No Reported Reaction Past Psychological History: No Psychological Hx Reported Smoking Status: Never smoker Past Alcohol Use History: Rare Past Drug Use History: None Reported - Past Family History Father Family Medical History: Coronary Artery Disease (CAD) Additional Family Medical History / Comment(s): Father at 88 yrs of age. He had heart problems late in life. Mother Family Medical History: No Reported History Additional Family Medical History / Comment(s): Mother was healthy. She at the age of 94 yrs. Medications and Allergies Home Medications Medication Instructions Recorded Confirmed Type Aspirin EC [Ecotrin Low Dose] 81 mg PO DAILY 04/09/23 04/09/23 History Allergies Allergy/AdvReac Type Severity Reaction Status Date / Time No Known Allergies Allergy Verified 04/09/23 14:24 Physical Exam Vitals: Vital Signs Temp Pulse Resp BP Pulse Ox 04/09/23 12:10 82 17 142/87 98 04/09/23 12:00 65 18 139/101 99 04/09/23 11:56 68 18 99 04/09/23 09:44 98.1 F 90 20 131/77 99 Intake and Output 04/09/23 04/09/23 04/09/23 06:59 14:59 22:59 Other: Weight 63.503 kg Results CBC & Chem 7: 04/09/23 11:57 04/09/23 11:57 Labs: Abnormal Lab Results - Last 24 Hours (Table) 04/09/23 Range/Units 11:57 Lymphocytes # 0.7 L (1.0-4.8) k/uL
[2023-04-09] MEDS: CARBIDOPA-LEVODOPA 25-100 MG 1 EACH TAB PO SCH (20:33)
[2023-04-09] MEDS: TAMSULOSIN 0.4 MG CAP.ER.24H PO SCH (20:33)
[2023-04-09] MEDS: ENOXAPARIN 40 MG/0.4 ML SYRINGE SQ SCH (20:33)
--- NOTE | 2023-04-10 08:30 | P.PN ---
Subjective Pleasant 72-year-old patient was presented to ER. He had a Bejarano catheter placed about 2 weeks ago and due to see the urologist today. Patient also has a movement disorder but apparently not taking any medications. He does use a walker. He is noting that his gait is shuffling. Has started to fall. Patient does have a resting tremor. Forgetful. Denies any fever and chills. No family at the bedside. 04/10/2023 Patient presents because of frequent falling, he states that he fell about 15 times over the last 3 weeks that's every day or every other day. Patient denies syncope and he refers to difficulty in his legs and feet. Patient looks rigid and he has a resting tremor of the upper extremity. Patient says his does not take pills at home only use some Motrin for chronic pain over the last week. Also is on aspirin 81 mg at home which is resumed. He is alert awake and oriented. He follows commands. His with low voice. He denies chest pain dyspnea or any other complaint. Vitals are stable. Patient currently started on Sinemet 25-100 mg Objective - Vital Signs Vital signs: Vital Signs Temp 98.6 F 04/10/23 07:59 Pulse 72 04/10/23 07:59 Resp 19 04/10/23 07:59 BP 152/80 04/10/23 07:59 Pulse Ox 96 04/10/23 07:59 FiO2 Intake & Output 04/09/23 04/10/23 04/10/23 18:59 06:59 18:59 Intake Total 250 Output Total 200 Balance 250 -200 Weight 63.503 kg 63.503 kg Intake: Oral 250 Output: Urine 200 Uretheral (Bejarano) 200 Other: Voiding Method Indwelling Catheter - Exam GENERAL: The patient is alert and oriented x3, not in any acute distress. Well developed, well nourished. HEENT: Pupils are round and equally reacting to light. EOMI. No scleral icterus. No conjunctival pallor. Normocephalic, atraumatic. No pharyngeal erythema. No thyromegaly. CARDIOVASCULAR: S1 and S2 present. No murmurs, rubs, or gallops. PULMONARY: Chest is clear to auscultation, no wheezing , no crackles. ABDOMEN: Soft, nontender, nondistended, normoactive bowel sounds. No palpable organomegaly. MUSCULOSKELETAL: No joint swelling or deformity. EXTREMITIES: No cyanosis, clubbing, or pedal edema. -NEUROLOGICAL: Gross neurological examination did not reveal any focal deficits. Patient is rigid with resting tremor SKIN: No rashes. no petechiae. - Labs CBC & Chem 7: 04/09/23 11:57 04/09/23 11:57 Labs: Abnormal Lab Results - Last 24 Hours (Table) 04/09/23 Range/Units 11:57 Lymphocytes # 0.7 L (1.0-4.8) k/uL Assessment and Plan Assessment: Recurrent falling resting tremor with rigidity and hypokinesia suspicious for Parkinson disease, new diagnosis Urinary retention, urologist evaluated the patient. May replace Bejarano catheter BPH with bladder outflow obstruction [id number] cognitive impairment History of coronary artery disease and prior cardiac cath Plan: Continue with Sinemet Neurology consult PT/OT evaluation Urologist evaluate patient with possible replacement of Bejarano catheter. Labs and medication were reviewed.. Continue same treatment. Continue with symptomatic treatment. Resume home medication. Monitor labs and vitals. DVT and GI prophylaxis. Further recommendations as per clinical course of the patient DVT prophylaxis: Subcutaneous Lovenox GI Prophylaxis: Pepcid PT/OT: Pending Prognosis is guarded
[2023-04-10] MEDS: ASPIRIN 81 MG PO SCH (08:56)
[2023-04-10] MEDS: ENOXAPARIN 40 MG/0.4 ML SYRINGE SQ SCH (08:56)
[2023-04-10] MEDS: CARBIDOPA-LEVODOPA 25-100 MG 1 EACH TAB PO SCH ×3 (08:56→22:03)
[2023-04-10] MEDS ORDERED: FAMOTIDINE 20 MG/2 ML VIAL IV SCH (09:00)
--- NOTE | 2023-04-10 15:53 | P.CNNES ---
History of Present Illness Consult date: 04/10/23 Requesting physician: Mika Isidro Reason for Consult: Parkinson's History of Present Illness: Patient is a 72-year-old right-handed male, with history of Parkinson's disease, follows up with Dr. Gale, came to the hospital by ambulance yesterday at 9:39 AM for problems with catheterization. As per EMS flow sheet, patient has chief complaints of pain from the catheter site. Patient mentioned that the pain has been getting worse since he got the catheter 2 weeks ago. He is also complaining of difficulty walking since his Parkinson's episode 6 weeks ago resulting in more frequent falls. Patient denies any weakness or dizziness. Patient was alert and oriented 4 and had no other complaints. Patient's vitals at the scene was blood pressure 139/89, pulse rate 86, respirations 16, saturation 100%. Patient states that he was diagnosed with Parkinson's disease about 6 months ago when he was having frequent falls. He admits to having difficulty standing up from the chair. He believes his hands are getting shaky for last 2 months, both hands are affected, but left more than right. Handwriting is getting smaller. He just started using walker in the last 2 weeks, as he was falling about once or twice a day. He usually falls forwards. He walks with a shuffle for a while. He was seeing Dr. Gale, who tried Sinemet for about 3 weeks, which produced headache. He has tried bunch of other medications for Parkinson's, but produced dizziness. At present he is not on any medication for Parkinson's di [facility]. Patient says that he is most concerned going up and down stairs, as he feels will fall. He lives with his , who is otherwise healthy. Patient states that his neurologist Dr. Armando Gale recommended him to see a movement disorder specialist in [facility]. He has not seen the specialist as yet. Patient also suffers from chronic daily headaches. He has headaches all the time, involving the frontal region and through the eyes. The headache gets worse and he rates a bad headache 9/10 which lasts for about 12 hours. Otherwise he has a chronic daily headaches which she rates 7/10, again involving the frontal region, behind the eyes. He denies any nausea vomiting. He is l ight sensitive but denies any noise sensitivity. He has tried bunch of medications, which did not work. He believes Motrin helps and takes Motrin as needed. Patient had an EEG on 03/26/2019, which was mildly abnormal EEG. Intermittent diffuse polymorphic theta range slowing mentioned is not epileptiform in nature. The findings indicate mild diffuse cerebral dysfunction. No seizures were sagar rded. No epileptiform activity was present. Patient has undergone DIDIER scan on 07/29/2019, which revealed abnormal appearance consistent with a diagnosis of either idiopathic Parkinson's disease or a parkinsonian syndrome. In dementia, this abnormal appearance is consistent with dementia with Lewy bodies, idiopathic Parkinson's disease, Parkinson's dementia complex or parkinsonian syndrome. Patient had an MRI of the brain performed 03/27/2019, which revealed no acute process. Mild burden nonspecific white matter changes, most commonly on the basis of microangiopathy. No abnormal intracranial enhancement is seen. No suspicious intracranial enhancing mass. Polypoid mucosal thickening of the maxillary sinuses versus mucosal retention cysts and mild mucosal thickening in the ethmoid and frontal sinuses. Carotid Doppler from 03/26/2019 revealed mild degree of grayscale atheromatous plaquing with no sonographically evident hemodynamically significant stenosis within the either visualize cerebral arterial system. Antegrade flow in both vertebral arteries. Patient currently takes aspirin 81 mg daily. Patient denies hypertension or diabetes. He has moved half pack per day for about 20-25 years, quit 20 years ago. Review of Systems Constitutional: Reports chills, Reports weight loss, Denies fever Eyes: denies blurred vision, denies diplopia, denies pain Ears: bilateral: decreased hearing (Chronic), deny: ear discharge Ears, nose, mouth and throat: Reports headache, Denies sinus pressure, Denies sore throat Cardiovascular: Denies chest pain, Denies shortness of breath Respiratory: Denies cough, Denies excessive sputum Gastrointestinal: Denies abdominal pain, Denies diarrhea, Denies nausea, Denies vomiting Musculoskeletal: Reports low back pain, Denies myalgias, Denies neck pain Integumentary: Denies pruritus, Denies rash Neurological: Reports as per HPI Psychiatric: Reports depression, Denies anxiety Endocrine: Reports fatigue, Reports weight change Hematologic/Lymphatic: Reports easy bruising, Denies easy bleeding Past Medical History Past Medical History: Coronary Artery Disease (CAD), Chest Pain / Angina, Prostate Disorder Additional Past Medical History / Comment(s): BPH, chronic low back pain, recent root canal-was on ABX. History of Any Multi-Drug Resistant Organisms: None Reported Past Surgical History: Heart Catheterization Additional Past Surgical History / Comment(s): 2013 Cardiac cath-treated medically, wisdom teeth extraction, VASECTOMY Past Anesthesia/Blood Transfusion Reactions: No Reported Reaction Past Psychological History: No Psychological Hx Reported Additional Psychological History / Comment(s): Pt resides with his spouse. He is independent. Smoking Status: Never smoker Past Alcohol Use History: Rare Additional Past Alcohol Use History / Comment(s): Pt started smoking in 1968 and quit in 1998. Past Drug Use History: None Reported - Past Family History Father Family Medical History: Coronary Artery Disease (CAD) Additional Family Medical History / Comment(s): Father at 88 yrs of age. He had heart problems late in life. Mother Family Medical History: No Reported History Additional Family Medical History / Comment(s): Mother was healthy. She at the age of 94 yrs. Medications and Allergies Home Medications Medication Instructions Recorded Confirmed Type Aspirin EC [Ecotrin Low Dose] 81 mg PO DAILY 04/09/23 04/09/23 History Allergies Allergy/AdvReac Type Severity Reaction Status Date / Time No Known Allergies Allergy Verified 04/09/23 14:24 Physical Examination - Vital Signs Vital Signs: Vital Signs Temp Pulse Pulse Resp BP BP Pulse Ox 04/10/23 07:59 98.6 F 72 19 152/80 96 04/10/23 01:57 97.7 F 60 15 94/58 95 04/09/23 20:25 97.5 F L 65 18 133/74 98 04/09/23 12:10 82 17 142/87 98 04/09/23 12:00 65 18 139/101 99 04/09/23 11:56 68 18 99 Intake and Output 04/09/23 04/10/23 04/10/23 22:59 06:59 14:59 Intake Total 250 Output Total 200 Balance 250 -200 Intake: Oral 250 Output: Urine 200 Uretheral (Bejarano) 200 Other: Voiding Method Indwelling Catheter Weight 63.503 kg Patient is an elderly male, very pleasant, in no acute distress. Patient is alert awake oriented to place and person. Patient knows it [facility] in [place] and name of the current president. He believes it is April and the year is 2017 and it is fall season. Speech and language functions are normal. Patient can name and repeat very well. No aphasia or dysarthria. Attention, concentration and fund of knowledge is adequate. Detail cognitive function testing deferred. On cranial nerve examination, pupils are equal, round and reacting to light, visual negron are full on confrontation, with no neglect on double simultaneous stimulation. Extraocular muscles are intact with no nystagmus. Face is symmetric, tongue protrudes to the midline. Palatal elevation and sensation normal, hearing and shoulder shrug normal, facial sensation normal. On muscle strength testing, there is no pronator drift and the strength is normal in arms and legs distally and proximally, except hip flexion which is about 4+ bilaterally. Deep tendon reflexes are symmetric 1+ and plantars downgoing. Sensory to touch is equal with no neglect on double simultaneous stimulation. Cerebellar function showed no ataxia for [id number] testing. No dysdiadochokinesia. No ataxia for [id number] testing on either side. Tone is mildly increased with cogwheeling. His bulk of muscles normal. patient is mildly bradykinetic. Frequency of eye blinking is slightly decreased. Gait deferred.. On general examination, there is no carotid bruit or murmur, S1-S2 audible. Chest is clear on consultation. Abdomen is soft nontender. No organomegaly, bowel sounds present. Peripheral pulses are present. No edema. Peripheral Results - Laboratory Findings CBC and BMP: 04/09/23 11:57 04/09/23 11:57 Abnormal Lab Findings: Abnormal Labs 04/09/23 11:57 Lymphocytes # 0.7 L Assessment and Plan Assessment: * Parkinson's disease, mild to moderate degree. Patient has gait imbalance, frequent falls, mildly increased tone, bradykinesia and micrographia. Patient has failed numerous medications for Parkinson's disease. * Chronic daily headaches, stable * X tobacco use Plan: * Patient has been diagnosed with Parkinson's disease. He has tried numerous medication the past, and had side effects with it. At present it appears, that primary physician has resumed Sinemet 25/100 3 times a day. We will follow and see if it helps with the Parkinson's. If he failed Sinemet, I would recommend patient follow up with his neurologist Dr. Armando Gale as an outpatient. He does not know what other medications he has tried for Parkinson's. Patient says that he does not want to consider DBS for Parkinson's disease. Patient's neurologist wants him to follow-up with movement disorder specialist at [place], and patient should follow-up with appointment with movement disorder specialist. * Patient also has chronic daily headaches for last 6 months. He needs to follow-up with his neurologist. Patient believes Motrin works. He may be a candidate for other preventative medication like Emgality or Aimovig injections for his chronic headaches. He does not believe he has tried injections for migraines in the past. * Neurologically, no other workup indicated. He just needs to follow-up with his neurologist for management of chronic issues like chronic daily headaches and Parkinson's. * Check CT head to rule out subdural hematoma or other structural abnormality. * B12 is borderline 370. We will start oral B12. TSH normal 1.75. * Thank you for the consult. Neurologically clear otherwise.
[2023-04-10] MEDS: CYANOCOBALAMIN 500 MCG TAB PO SCH (16:20)
[2023-04-10] MEDS: TAMSULOSIN 0.4 MG CAP.ER.24H PO SCH (18:12)
--- NOTE | 2023-04-10 19:09 | P.GSCN ---
History of Present Illness Consult date: 04/10/23 History of present illness: 72 yo male in the hospital for urine retention and frequent falls. the patient was diagnosed with parkinsons 6 mo ago. He went into urine retention 2 weeks ago. He was supposed to be seen in our office yesterday for urological evaluation but ended up in the er and subsequently in the hospital. The patient apparently has not been taling any of his parkinsons meds nor any urinary medications. He is interviewed at the bedside. The value of his history is limited. He may have seen a urologist in the past but cannot completely remembe r. He denies uti, hematuria nor dysuria. He denies previous urine retention. He was started on tamsulosin today. the catheter was removed earlier this am for a voiding trial Review of Systems ROS unobtainable: due to mental status Past Medical History Past Medical History: Coronary Artery Disease (CAD), Chest Pain / Angina, Prostate Disorder Additional Past Medical History / Comment(s): BPH, chronic low back pain, recent root canal-was on ABX. History of Any Multi-Drug Resistant Organisms: None Reported Past Surgical History: Heart Catheterization Additional Past Surgical History / Comment(s): 2013 Cardiac cath-treated medically, wisdom teeth extraction, VASECTOMY Past Anesthesia/Blood Transfusion Reactions: No Reported Reaction Past Psychological History: No Psychological Hx Reported Additional Psychological History / Comment(s): Pt resides with his spouse. He is independent. Smoking Status: Never smoker Past Alcohol Use History: Rare Additional Past Alcohol Use History / Comment(s): Pt started smoking in 1968 and quit in 1998. Past Drug Use History: None Reported - Past Family History Father Family Medical History: Coronary Artery Disease (CAD) Additional Family Medical History / Comment(s): Father at 88 yrs of age. He had heart problems late in life. Mother Family Medical History: No Reported History Additional Family Medical History / Comment(s): Mother was healthy. She at the age of 94 yrs. Medications and Allergies Home Medications Medication Instructions Recorded Confirmed Type Aspirin EC [Ecotrin Low Dose] 81 mg PO DAILY 04/09/23 04/09/23 History Allergies Allergy/AdvReac Type Severity Reaction Status Date / Time No Known Allergies Allergy Verified 04/09/23 14:24 Surgical - Exam Vital Signs Temp Pulse Resp BP Pulse Ox 98.1 F 90 20 131/77 99 04/09/23 09:44 04/09/23 09:44 04/09/23 09:44 04/09/23 09:44 04/09/23 09:44 - General disheveled. well developed, chronically ill - Respiratory normal respiratory effort, clear to auscultation - Abdomen Abdomen: soft, non tender, no guarding, no rigid, no rebound Results - Labs 04/09/23 11:57 04/09/23 11:57 Thyroid panel 04/09/23 Range/Units 11:57 TSH 1.750 (0.350-5.500) UIU/ML Pituitary panel 04/09/23 Range/Units 11:57 TSH 1.750 (0.350-5.500) UIU/ML Assessment and Plan Assessment: Impression: urine retention. Parkinsons disease. Plan: The patient has been started on flomax. the catheter has been removed for a voiding trial. We will see how he responds before further recommendations.
--- NOTE | 2023-04-10 19:26 | CT ---
EXAMINATION TYPE: CT brain wo con DATE OF EXAM: 04/10/2023 COMPARISON: 03/06/2019 INDICATION: Worsening Parkinson's, frequent falls DLP: 1100.4 mGycm, Automated exposure control for dose reduction was used. CONTRAST: None CT of the brain is performed utilizing 3 mm thick sections through the posterior fossa and 3 mm thick sections through the remaining calvarium. Study is performed within 24 hours of arrival to the hosp [facility]. No abnormal hyperdensity is present to suggest an acute intracranial hemorrhage. No mass lesion is evident. No acute infarcts are evident. Ventricles and sulci are appropriate for the patient age. Paranasal sinuses and mastoid air cells within the [id number] are clear. IMPRESSION: 1. Mild age-related atrophy.
[2023-04-10] MEDS: FAMOTIDINE 20 MG TAB PO SCH (22:03)
[2023-04-11] MEDS: ASPIRIN 81 MG PO SCH (08:39)
[2023-04-11] MEDS: CYANOCOBALAMIN 500 MCG TAB PO SCH (08:39)
[2023-04-11] MEDS: ENOXAPARIN 40 MG/0.4 ML SYRINGE SQ SCH (08:39)
[2023-04-11] MEDS: CARBIDOPA-LEVODOPA 25-100 MG 1 EACH TAB PO SCH ×2 (08:39→15:19)
[2023-04-11] MEDS: FAMOTIDINE 20 MG TAB PO SCH (08:39)
[2023-04-11 08:52] VITALS: RESP 16; TEMP 98.1
--- NOTE | 2023-04-11 12:58 | P.DS ---
Providers Date of admission: 04/09/23 23:34 Attending physician: Mika Isidro Consults: 04/09/23 13:38 Consult Physician Routine Consulting Provider: Maycol Bob Consult Reason/Comments: mathis catheter Do you want consulting provider notified?: Yes 04/09/23 18:34 Consult Physician Routine Consulting Provider: Elie Vera Consult Reason/Comments: Parkinson's Do you want consulting provider notified?: Yes Primary care physician: [facility] Hospital Course: Diagnoses: Recurrent falling without syncope most likely secondary to Parkinson disease and deconditioning resting tremor with rigidity and hypokinesia suspicious for Parkinson disease, new diagnosis Urinary retention, urologist evaluated the patient. May replace Mathis catheter upon discharge and follow-up with urologist as an outpatient BPH with bladder outflow obstruction [id number] cognitive impairment History of coronary artery disease and prior cardiac cath Hospital course: Pleasant 72-year-old patient was presented to ER. He had a Mathis catheter placed about 2 weeks ago and due to see the urologist today. Patient also has a movement disorder but apparently not taking any medications. He does use a walker. He is noting that his gait is shuffling. Has started to fall. Patient does have a resting tremor. Forgetful. Denies any fever and chills. No family at the bedside. Patient tolerated by neurologist. Patient already started on Sinemet although he tried several medications for Parkinson disease before and did not work. Neurologist recommended to continue with Sinemet for now and follow up with his on the neurologist as an outpatient with Dr. Gale in 1-2 weeks. Patient today is more awake, more strong although he still feels generally weak but looks like he is improving. He denies any other new complaints. He has evidence of urinary retention, Mathis catheter was discontinued yesterday but it has to be replaced back again because of the irritation of problem. Urologist on the case.patient is already on Flomax Patient was cleared for discharge urologist and the neurologist Problems and management plan were discussed with the patient and he verbalized understanding and acceptance Patient was found stable and can be discharged home in guarded prognosis however he needs follow-up as an outpatient. Patient was instructed to follow up with PCP within one week and patient agrees Patient was instructed to follow up with a neurologist Dr. Gale in one week and urologist Dr. Cormier in 7-10 days and is agreeable Physical exam Gen: patient is a AAOx3, no distress. Generalized weakness CVS: S1-S2, RRR, no murmur Lungs: B/L CTA, no wheezing -Abdomen: soft, no distention, no tenderness, positive bowel sounds. Mathis catheter in place Extremity: no leg edema or induration -Neuro: AA0X3. Generalized weakness improving. No hemiparesis or paralysis. Cranial nerves are grossly intact. Resting tremor. Bradykinesia. Monitor on a slow voids. With rigidity suspicious for Parkinson disease and symptoms (improved compared to yesterday) Time spent more than 35 minutes Patient Condition at Discharge: Stable Plan - Discharge Summary New Discharge Prescriptions: No Action Aspirin EC [Ecotrin Low Dose] 81 mg PO DAILY Discharge Medication List Aspirin EC [Ecotrin Low Dose] 81 mg PO DAILY 04/09/23 [History] Follow up Appointment(s)/Referral(s): Bert Perez DO [Primary Care Provider] - 1-2 days (Office will contact you for appointment. If no information by please contact office. ) Armando Gale MD [STAFF PHYSICIAN] - 1 Week Activity/Diet/Wound Care/Special Instructions: Heart healthy diet activity is as tolerated Discharge/Stand Alone Forms: Who Do I Call?, Help In The Home, Area PCPs Discharge Disposition: TRANSFER TO SNF/ECF
[2023-04-11 13:20] VITALS: BP 113/70; PULSE 82
[2023-04-11] MEDS ORDERED: CYANOCOBALAMIN 1,000 MCG/ML 1 ML VIAL IM ONE (13:30)
== END 2023-04-11 17:05 ==
LOC: EC 09:39 → 6NMEDSUR 14:56 → 1SOBS 19:39 → OBSVTOIN 23:34 → INTOOBSV 23:34 → 5NMEDONC 04-10 17:05 → UNDODISIN 04-11 17:05
PROVIDERS: ADMIT Hospitalist; ATTEND Hospitalist
DX: G20 Parkinson's disease (principal); G31.84 Mild cognitive impairment of uncertain or unknown etiology; G93.89 Other specified disorders of brain; N40.1 Benign prostatic hyperplasia with lower urinary tract symptoms; N32.0 Bladder-neck obstruction; R33.8 Other retention of urine; I25.10 Atherosclerotic heart disease of native coronary artery without angina pectoris; R26.81 Unsteadiness on feet; R29.6 Repeated falls; G89.29 Other chronic pain; R51.9 Headache, unspecified; M54.50 Low back pain, unspecified; Z79.82 Long term (current) use of aspirin; Z98.52 Vasectomy status; Z91.81 History of falling; Z87.891 Personal history of nicotine dependence; Z82.49 Family history of ischemic heart disease and other diseases of the circulatory system
CPT/HCPCS: 96372 ×3; 96374; 99285; 36415; 93005; 97163; 97167; 80053; 84443; 82607; 83605; 84484; 85025; 85610; 85730; 81003; 71046; 70450; G0378 ×5; J3420; J1650 ×3; J3490

== ENCOUNTER 2023-05-04 23:29 | Emergency (ER) | payer MEDICARE ==
[2023-05-04] MEDS ORDERED: ONDANSETRON 4 MG/2 ML VIAL IVP STA (23:38)
[2023-05-04] MEDS ORDERED: SODIUM CHLORIDE 0.9% 1,000 ML IV STA (23:38)
[2023-05-04 23:44] VITALS: TEMP 100.9
[2023-05-05 00:09] LABS: Basophils % (A) 0 %; Eosinophils # (A) 0.1 k/uL (0-0.7); Eosinophils % (A) 1 %; HCT 36.6 % (39.0-53.0); HGB 12.4 gm/dL (13.0-17.5); Lymphocytes # (A) 1.1 k/uL (1.0-4.8); Lymphocytes % (A) 10 %; MCH 31.7 pg (25.0-35.0); MCHC 33.9 g/dL (31.0-37.0); MCV 93.6 fL (80.0-100.0); Mean Platelet Volume 7.6; Monocytes # (A) 0.7 k/uL (0-1.0); Monocytes % (A) 6 %; Neutrophils # (A) 8.9 k/uL (1.3-7.7); Neutrophils % (A) 82 %; Platelet Count 189 k/uL (150-450); RBC 3.91 m/uL (4.30-5.90); WBC 10.8 k/uL (3.8-10.6)
[2023-05-05 00:17] LABS: INR 1.1 (<1.2); Prothrombin Time 11.4 sec (10.0-12.5)
[2023-05-05 00:35] LABS: ALT 9 U/L (4-49); AST 27 U/L (17-59); African American GFR (CKD) 77 (>60 ml/min/1.73 sqM); Albumin 3.1 g/dL (3.5-5.0); Alkaline Phosphatase 69 U/L (38-126); Amylase 45 U/L (30-110); Anion Gap 7 mmol/L; Blood Urea Nitrogen 28 mg/dL (9-20); Calcium 8.2 mg/dL (8.4-10.2); Carbon Dioxide 24 mmol/L (22-30); Chloride 107 mmol/L (98-107); Glucose 101 mg/dL (74-99); Lipase 26 U/L (23-300); Non-African American GFR(CKD) 67 (>60 ml/min/1.73 sqM); Potassium 4.4 mmol/L (3.5-5.1); Sodium 138 mmol/L (137-145); Total Bilirubin 1.1 mg/dL (0.2-1.3); Total Protein 5.5 g/dL (6.3-8.2)
[2023-05-05] MEDS ORDERED: ACETAMINOPHEN TAB 500 MG TAB PO STA (00:40)
--- NOTE | 2023-05-05 02:37 | CT ---
EXAM: CT Head Without Intravenous Contrast CLINICAL HISTORY: ams TECHNIQUE: Axial computed tomography images of the head/brain without intravenous contrast. CTDI is 44.2 mGy and DLP is 1159.4 mGy-cm. This CT exam was performed using one or more of the following dose reduction techniques: automated exposure control, adjustment of the mA and/or kV according to patient size, and/or use of iterative reconstruction technique. COMPARISON: CT head without contrast dated 04/10/2023 FINDINGS: Brain: There is subtle new hyperdensity along the anterior falx when compared to the previous examination. However, this only measures 2 mm and demonstrates no mass effect. No subarachnoid or intraparenchymal or intraventricular hemorrhage. No mass effect. The parenchyma is stable with mild prominence of the cerebral sulci and sylvian fissures. No cortical infarct. No significant white matter disease. Ventricles: No midline shift or ventriculomegaly. Bones/joints: Unremarkable. No acute fracture. Soft tissues: Unremarkable. Sinuses: Unremarkable as visualized. No acute sinusitis. Mastoid air cells: Unremarkable as visualized. No mastoid effusion. IMPRESSION: There is subtle new hyperdensity along the anterior falx when compared to the previous examination. However, this only measures 2 mm and demonstrates no mass effect. Findings are suspicious for subtle parafalcine hemorrhagic products. Recommend short-term follow-up imaging in one to 2 hours to ensure stability over time. <MYCVCSECTION> Communications: 05/05/23 02:39 Call Doctor Regarding Intracranial Hemorrhage, called Dr. Mendes on 05/05 02:38 (-04:00)
--- NOTE | 2023-05-05 02:48 | CT ---
EXAM: CT Abdomen and Pelvis With Intravenous Contrast CLINICAL HISTORY: traumatic Bejarano catheter removal TECHNIQUE: Axial computed tomography images of the abdomen and pelvis with intravenous contrast. CTDI is 18.1 mGy and DLP is 984.9 mGy-cm. This CT exam was performed using one or more of the following dose reduction techniques: automated exposure control, adjustment of the mA and/or kV according to patient size, and/or use of iterative reconstruction technique. COMPARISON: No relevant prior studies available. FINDINGS: Limitations: There is respiratory artifact, which degrades image quality on multiple image slices. Lung bases: Subsegmental changes noted in the posterior lung bases. ABDOMEN: Liver: Unremarkable. No mass. Gallbladder and bile ducts: Solitary gallstone noted in the gallbladder measuring 13 mm. No ductal dilation. Pancreas: Unremarkable. No mass. No ductal dilation. Spleen: Unremarkable. No splenomegaly. Adrenals: Unremarkable. No mass. Kidneys and ureters: Unremarkable. No solid mass. No hydronephrosis. Stomach and bowel: No bowel obstruction. No definite asymmetric bowel mucosal abnormality, accounting for respiratory artifact. PELVIS: Appendix: Not clearly delineated. Bladder: A Bejarano catheter is noted within the bladder. Bladder is decompressed with mucosal prominence and perivesicular fat stranding noted. Reproductive: Prostatic hypertrophy. ABDOMEN and PELVIS: Intraperitoneal space: Trace free fluid in the dependent pelvis. No loculation or layering hematocrit. No free air. Bones/joints: No acute fracture. No dislocation. Soft tissues: Unremarkable. Vasculature: Unremarkable. No abdominal aortic aneurysm. Lymph nodes: Unremarkable. No enlarged lymph nodes. IMPRESSION: 1. A Bejarano catheter is noted within the bladder. Bladder is decompressed with mucosal prominence and perivesicular fat stranding noted. Differential consideration includes inflammatory infectious cystitis versus hypertrophic changes. 2. Trace free fluid in the dependent pelvis. No loculation or layering hematocrit.
[2023-05-05 02:52] LABS: Appearance,Urine Clear (Clear); Bilirubin,Urine Negative (Negative); Blood,Urine Large (Negative); Color,Urine Red; Glucose,Urine (UA) Negative (Negative); Ketones,Urine Negative (Negative); Leukocyte Esterase,Urine Large (Negative); Nitrite,Urine Negative (Negative); Protein,Urine 1+ (Negative); RBC,Urine >182 /hpf (0-5); Specific Gravity,Urine 1.024 (1.001-1.035); Urobilinogen,Urine <2.0 mg/dL (<2.0); WBC,Urine 36 /hpf (0-5)
--- NOTE | 2023-05-05 03:00 | ED ---
General Adult HPI - General Chief complaint: Altered Mental Status Stated complaint: Altered Mental Time Seen by Provider: 05/04/23 23:31 Source: patient, EMS, RN notes reviewed, old records reviewed Mode of arrival: EMS Limitations: no limitations - History of Present Illness Initial comments: Patient is a 72-year-old male who presents emergency Department for altered mental status and suspected UTI. Presents from his nursing facility. Yesterday he ripped out his Bejarano catheter and apparently catheterogram. Began treatment for UTI. His been more lethargic than usual. Baseline is alert and oriented 3-4. However he is refusing to opening his eyes, is following commands, but is not speaking clearly. He cannot provide any history. They have noticed dark red blood clotted in his Bejarano catheter. They're worried about sepsis or other issue. Patient apparently has multiple falls at the nursing facility, with unknown last known fall blood patient is commonly walking around and falling per nursing staff. Presents for further evaluation at this time. No known falls in the last 24 hours. - Related Data Home Medications Medication Instructions Recorded Confirmed Aspirin EC [Ecotrin Low Dose] 81 mg PO DAILY 04/09/23 04/09/23 Previous Rx's Medication Instructions Recorded Acetaminophen Tab [Tylenol] 650 mg PO Q6HR PRN tab 04/11/23 Calcium Carbonate [Tums] 1,000 mg PO Q4HR PRN tab 04/11/23 Carbidopa-Levodopa 25-100 mg 1 each PO TID tab 04/11/23 [Sinemet 25-100 mg] Cyanocobalamin [Vitamin B-12] 1,000 mcg PO DAILY tab 04/11/23 Famotidine [Pepcid] 20 mg PO BID tab 04/11/23 Lactulose [Cephulac] 20 gm PO DAILY PRN ml 04/11/23 Tamsulosin [Flomax] 0.4 mg PO PC-SUPPER cap 04/11/23 Allergies Allergy/AdvReac Type Severity Reaction Status Date / Time No Known Allergies Allergy Verified 05/04/23 23:37 Review of Systems ROS Statement: Those systems with pertinent positive or pertinent negative responses have been documented in the HPI. ROS Other: All systems not noted in ROS Statement are negative. Past Medical History Past Medical History: Coronary Artery Disease (CAD), Chest Pain / Angina, P rostate Disorder Additional Past Medical History / Comment(s): BPH, chronic low back pain, recent root canal-was on ABX. History of Any Multi-Drug Resistant Organisms: None Reported Past Surgical History: Heart Catheterization Additional Past Surgical History / Comment(s): 2013 Cardiac cath-treated medically, wisdom teeth extraction, VASECTOMY Past Anesthesia/Blood Transfusion Reactions: No Reported Reaction Past Psychological History: No Psychological Hx Reported Smoking Status: Never smoker Past Alcohol Use History: Rare Past Drug Use History: None Reported - Past Family History Father Family Medical History: Coronary Artery Disease (CAD) Additional Family Medical History / Comment(s): Father at 88 yrs of age. He had heart problems late in life. Mother Family Medical History: No Reported History Additional Family Medical History / Comment(s): Mother was healthy. She at the age of 94 yrs. General Exam - General Exam Comments Initial Comments: General: Appears in no acute distress. HEAD: Normal with no signs of head trauma. EYES: PERRLA, EOMI, conjunctiva normal, no discharge. Pupils are 2 mm and equal bilaterally. ENT: Hearing grossly intact, normal oropharynx. RESPIRATORY: Clear breath sounds bilaterally. No wheezes, rales, or rhonchi. C/V: Regular rate and rhythm. S1 and S2 auscultated, peripheral pulses 2+ and intact throughout ABD: Abd is soft, nontender, nondistended : Bejarano bag shows clotted blood. Dark red urine. EXT: Normal range of motion, no obvious deformity SKIN: No rashes or lesions observed on exposed skin. NEURO: Alert but not oriented. Able to follow commands. Moving all 4 extre mities. No obvious focal deficits. GCS is approximately 11. Patient opens his eyes to pain, and follows all commands. However patient is saying inappropriate words to confusion per verbal response. Limitations: no limitations Course Vital Signs 05/04/23 05/04/23 05/05/23 23:30 23:32 00:00 Temperature 100.9 F H Pulse Rate 67 63 Respiratory 18 24 9 L Rate Blood Pressure 103/60 103/62 O2 Sat by Pulse 98 Oximetry 05/05/23 05/05/23 05/05/23 00:05 01:14 02:00 Temperature Pulse Rate 75 66 Respiratory 7 L 14 Rate Blood Pressure 115/64 123/96 O2 Sat by Pulse Oximetry 05/05/23 03:00 Temperature Pulse Rate 63 Respiratory 9 L Rate Blood Pressure 110/65 O2 Sat by Pulse Oximetry Medical Decision Making - Medical Decision Making Was pt. sent in by a medical professional or institution (, [facility], [employer], urgent care, hospital, or group home...) When possible be specific @ -No Did you speak to anyone other than the patient for history (EMS, parent, family, police, friend...)? What history was obtained from this source @ -No Did you review nursing and triage notes (agree or disagree)? Why? @ -I reviewed and agree with nursing and triage notes Were old charts reviewed (outside hosp., previous admission, EMS record, old EKG, old radiological studies, urgent care reports/EKG's, group home records)? Report findings @ -Old charts reviewed. Differential Diagnosis (chest pain, altered mental status, abdominal pain women, abdominal pain men, vaginal bleeding, weakness, fever, dyspnea, syncope, h eadache, dizziness, GI bleed, back pain, seizure, CVA, palpatations, mental health, musculoskeletal)? @ -Differential Altered Mental Status: Hypoglycemia, DKA, hypercapnia, ETOH, overdose, CO poisoning, trauma, myxedema coma, HTN encephalopathy, infection, encephalitis, psychosis, intercranial hemorrhage, hepatic encephalopathy, meningitis, CVA, this is not meant to be an all-inclusive list EKG interpreted by me (3pts min.). @ -As above X-rays interpreted by me (1pt min.). @ -Chest x-ray reveals no obvious acute cardio pulmonary process. CT interpreted by me (1pt min.). @ -CT brain reveals concerned for a small subdural hemorrhage. Radiology contacted me regarding this result. No mass effect. [address] abdomen and pelvis shows inflammatory changes the bladder is likely secondary to UTI as well as traumatic removal of the Bejarano catheter. No other obvious findings. U/S interpreted by me (1pt. min.). @ -None done What testing was considered but not performed or refused? (CT, X-rays, U/S, labs)? Why? @ -None What meds were considered but not given or refused? Why? @ -None Did you discuss the management of the patient with other professionals (professionals i.e. , [facility], [employer], lab, RT, psych nurse, social work case manager, vehicle washer, teacher, psychological operations officer, supervisor case loading)? Give summary @ -Discuss the CT brain results with radiology.I discussed the case with [facility], trauma surgeon Dr. Landrum who accepted the transfer. Was in agreement with the plan and management. Was smoking cessation discussed for >3mins.? @ -No Was critical care preformed (if so, how long)? @ -Yes, 42 minutes. Were there social determinants of health that impacted care today? How? (Homelessness, low income, unemployed, alcoholism, drug addiction, transportation, low edu. Level, literacy, decrease access to med. care, alf, rehab)? @ -No Was there de-escalation of care discussed even if they declined (Discuss DNR or withdrawal of care, Hospice)? DNR status @ -No What co-morbidities impacted this encounter? (DM, HTN, Smoking, COPD, CAD, Cancer, CVA, ARF, Chemo, Hep., AIDS, mental health diagnosis, sleep apnea, morbid obesity)? @ -None Was patient admitted / discharged? Hospital course, mention meds given and route, prescriptions, significant lab abnormalities, going to OR and other pe rtinent info. @ -Based on the patient's presentation and physical exam, I do suspect patient's current clinical status is from a UTI as he is febrile and had a recent traumatic for catheter removal. He has not been on antibiotics as he has not been taking pills orally. However I cannot rule out injury as he does have a known history of frequent falls. He is altered at this time. GCS is 11-12. Therefore we will obtain CT brain as well as CT on pelvis, chest x-ray, and alt ered mental status labs. Vital signs are within acceptable limits. Patient is not activated trauma as he does have a reason for his current complaints, likely being from UTI and the traumatic Bejarano removal. EKG showed no signs of ischemia. Patient's laboratory studies are remarkable for a mild leukocytosis of 10.8. Urine is still pending. Remainder the labs within acceptable limits. Blood catheter replaced. Draining blood-tinged urine. CT brain was concerning for a subdural hemorrhage that is new when compared to prior CT brain from March. I was called and notified of this by radiology. CT of the pelvis shows inflammatory infectious changes of the bladder likely secondary to traumatic removal of catheter. No other obvious findings. Chest x-ray unremarkable. There was a long delay in obtaining CT read from radiology due to be in the middle of the night which did delay patient's transfer as well as the subtleness of the CT read. Patient is not on blood thinners. I'm concerned for possible acute subdural hematoma there is frequent history of falls. No mass effect. Head of bed is elevated to 30. We will transfer the patient as we do not have neurosurgery available here in case patient requires intervention. Per radiology, this does appear to be an acute bleed when compared with With prior CTs. I discussed the case with [facility], trauma surgeon Dr. Landrum who accepted the transfer. Was in agreement with the plan and management. Patient transferred in serious condition. GCS remains approximately 11-12. I updated patient's , Mrs. Dill who was in agreement with the plan. Undiagnosed new problem with uncertain prognosis? @ -No Drug Therapy requiring intensive monitoring for toxicity (Heparin, Nitro, Insulin, Cardizem)? @ -No Were any procedures done? @ -No Diagnosis/symptom? @ -Subdural hematoma, suspect acute traumatic due to frequent history of falls and history of Parkinson's disease Acute, or Chronic, or Acute on Chronic? @ -Acute Uncomplicated (without systemic symptoms) or Complicated (systemic symptoms)? @ -Complicated Side effects of treatment? @ -No Exacerbation, Progression, or Severe Exacerbation? @ -No Poses a threat to life or bodily function? How? (Chest pain, [place], [place], pneumonia, PE, COPD, DKA, ARF, appy, cholecystitis, CVA, Diverticulitis, Homicidal, Suicidal, threat to staff... and all critical care pts) @ -Yes Diagnosis/symptom? @ -UTI in the setting of recent traumatic Bejarano catheter removal Acute, or Chronic, or Acute on Chronic? @ -Acute Uncomplicated (without systemic symptoms) or Complicated (systemic symptoms)? @ -Complicated Side effects of treatment? @ -none Exacerbation, Progression, or Severe Exacerbation] @ -no Poses a threat to life or bodily function? @ -Yes Diagnosis/symptom? @ -Altered mental status, likely secondary to UTI Acute, or Chronic, or Acute on Chronic? @ -Acute Uncomplicated (without systemic symptoms) or Complicated (systemic symptoms)? @ -Complicated Side effects of treatment? @ -none Exacerbation, Progression, or Severe Exacerbation] @ -no Poses a threat to life or bodily function? @ -Yes - Lab Data Result diagrams: 05/04/23 23:38 05/04/23 23:38 Lab Results 05/04/23 05/04/23 05/04/23 Range/Units 23:38 23:38 23:38 WBC 10.8 H (3.8-10.6) k/uL RBC 3.91 L (4.30-5.90) m/uL Hgb 12.4 L (13.0-17.5) gm/dL Hct 36.6 L (39.0-53.0) % MCV 93.6 (80.0-100.0) fL MCH 31.7 (25.0-35.0) pg MCHC 33.9 (31.0-37.0) g/dL RDW 13.0 (11.5-15.5) % Plt Count 189 (150-450) k/uL MPV 7.6 Neutrophils % 82 % Lymphocytes % 10 % Monocytes % 6 % Eosinophils % 1 % Basophils % 0 % Neutrophils # 8.9 H (1.3-7.7) k/uL Lymphocytes # 1.1 (1.0-4.8) k/uL Monocytes # 0.7 (0-1.0) k/uL Eosinophils # 0.1 (0-0.7) k/uL Basophils # 0.0 (0-0.2) k/uL PT 11.4 (10.0-12.5) sec INR 1.1 (<1.2) APTT 26.0 (22.0-30.0) sec Sodium 138 (137-145) mmol/L Potassium 4.4 (3.5-5.1) mmol/L Chloride 107 (98-107) mmol/L Carbon Dioxide 24 (22-30) mmol/L Anion Gap 7 mmol/L BUN 28 H (9-20) mg/dL Creatinine 1.09 (0.66-1.25) mg/dL Est GFR (CKD-EPI)AfAm 77 (>60 ml/min/1.73 sqM) Est GFR (CKD-EPI)NonAf 67 (>60 ml/min/1.73 sqM) Glucose 101 H (74-99) mg/dL Calcium 8.2 L (8.4-10.2) mg/dL Total Bilirubin 1.1 (0.2-1.3) mg/dL AST 27 (17-59) U/L ALT 9 (4-49) U/L Alkaline Phosphatase 69 (38-126) U/L Total Protein 5.5 L (6.3-8.2) g/dL Albumin 3.1 L (3.5-5.0) g/dL Amylase 45 (30-110) U/L Lipase 26 (23-300) U/L Urine Color Urine Appearance (Clear) Urine pH (5.0-8.0) Ur Specific [place] (1.001-1.035) Urine Protein (Negative) Urine Glucose (UA) (Negative) Urine Ketones (Negative) Urine Blood (Negative) Urine Nitrite (Negative) Urine Bilirubin (Negative) Urine Urobilinogen (<2.0) mg/dL Ur Leukocyte Esterase (Negative) Urine RBC (0-5) /hpf Urine WBC (0-5) /hpf Influenza Type A (PCR) (Not Detectd) Influenza Type B (PCR) (Not Detectd) RSV (PCR) (Not Detectd) SARS-CoV-2 (PCR) (Not Detectd) 05/04/23 05/05/23 Range/Units 23:39 02:34 WBC (3.8-10.6) k/uL RBC (4.30-5.90) m/uL Hgb (13.0-17.5) gm/dL Hct (39.0-53.0) % MCV (80.0-100.0) fL MCH (25.0-35.0) pg MCHC (31.0-37.0) g/dL RDW (11.5-15.5) % Plt Count (150-450) k/uL MPV Neutrophils % % Lymphocytes % % Monocytes % % Eosinophils % % Basophils % % Neutrophils # (1.3-7.7) k/uL Lymphocytes # (1.0-4.8) k/uL Monocytes # (0-1.0) k/uL Eosinophils # (0-0.7) k/uL Basophils # (0-0.2) k/uL PT (10.0-12.5) sec INR (<1.2) APTT (22.0-30.0) sec Sodium (137-145) mmol/L Potassium (3.5-5.1) mmol/L Chloride (98-107) mmol/L Carbon Dioxide (22-30) mmol/L Anion Gap mmol/L BUN (9-20) mg/dL Creatinine (0.66-1.25) mg/dL Est GFR (CKD-EPI)AfAm (>60 ml/min/1.73 sqM) Est GFR (CKD-EPI)NonAf (>60 ml/min/1.73 sqM) Glucose (74-99) mg/dL Calcium (8.4-10.2) mg/dL Total Bilirubin (0.2-1.3) mg/dL AST (17-59) U/L ALT (4-49) U/L Alkaline Phosphatase (38-126) U/L Total Protein (6.3-8.2) g/dL Albumin (3.5-5.0) g/dL Amylase (30-110) U/L Lipase (23-300) U/L Urine Color Red Urine Appearance Clear (Clear) Urine pH 6.0 (5.0-8.0) Ur Specific [place] 1.024 (1.001-1.035) Urine Protein 1+ H (Negative) Urine Glucose (UA) Negative (Negative) Urine Ketones Negative (Negative) Urine Blood Large H (Negative) Urine Nitrite Negative (Negative) Urine Bilirubin Negative (Negative) Urine Urobilinogen <2.0 (<2.0) mg/dL Ur Leukocyte Esterase Large H (Negative) Urine RBC >182 H (0-5) /hpf Urine WBC 36 H (0-5) /hpf Influenza Type A (PCR) Not Detected (Not Detectd) Influenza Type B (PCR) Not Detected (Not Detectd) RSV (PCR) Not Detected (Not Detectd) SARS-CoV-2 (PCR) Not Detected (Not Detectd) - EKG Data -: EKG Interpreted by Me EKG Comments: 12-lead Electrocardiogram Interpretation Note EKG was reviewed and interpreted by myself. 12-lead ECG performed at 2335 is interpreted by me as revealing normal sinus rhythm at a rate of 63 beats per minute. [place] is normal. ID interval is 154 ms, QRS duration 77 ms, QTc is 398 ms.. There were no ST or T wave abnormalities to suggest myocardial ischemia or injury. R wave progression across the precordium was satisfactory. By my interpretation this EKG is non-diagnostic for acute ischemia. Critical Care Time Critical Care Time: Yes Total Critical Care Time: 42 Disposition Clinical Impression: Fall, Subdural hematoma, UTI (urinary tract infection), Bejarano catheter problem, Hematuria, Altered mental status Disposition: OTHER INSTITUTION NOT DEFINED Condition: Serious Is patient prescribed a controlled substance at d/c from ED?: No Referrals: Carl Meyers MD [Primary Care Provider] - 1-2 days Time of Disposition: 03:00 - Out of Hospital Transfer - Req. Specs Out of Hospital Transfer - Requested Specifics: Other Emergency Center (Accepting physician is Dr. Landrum and [facility] for escalation of care.)
--- NOTE | 2023-05-05 03:17 | XR ---
EXAM: XR Chest, 1 View CLINICAL HISTORY: ams TECHNIQUE: Frontal view of the chest. COMPARISON: Chest 2 views 04/09/2023 FINDINGS: Lungs: Subsegmental infrahilar changes noted. Questionable subsegmental changes in the left central mid to lower lung zone. The pulmonary vasculature appears slightly crowded. Pleural space: Unremarkable. No pneumothorax. No large pleural effusion. Heart: Unremarkable. No cardiomegaly. Mediastinum: The mediastinal contours are stable and unremarkable. The trachea is midline. Bones/joints: Unremarkable. IMPRESSION: Subsegmental infrahilar changes noted. Questionable subsegmental changes in the left central mid to lower lung zone. Differential consideration includes subsegmental atelectasis or subtle infection. The pulmonary vasculature appears slightly crowded. No pleural effusion or pneumothorax.
[2023-05-05 03:31] VITALS: BP 110/65; PULSE 63; RESP 9
== END 2023-05-05 03:34 | disposition other institution (70) ==
LOC: EC 23:29
DX: S06.5XAA Traumatic subdural hemorrhage with loss of consciousness status unknown, initial encounter (principal); N39.0 Urinary tract infection, site not specified; T83.091A Other mechanical complication of indwelling urethral catheter, initial encounter; R41.82 Altered mental status, unspecified; I25.10 Atherosclerotic heart disease of native coronary artery without angina pectoris; Z20.822 Contact with and (suspected) exposure to COVID-19; Z79.82 Long term (current) use of aspirin; W19.XXXA Unspecified fall, initial encounter; Y73.8 Miscellaneous gastroenterology and urology devices associated with adverse incidents, not elsewhere classified
CPT/HCPCS: 51798; 93005; 80053; 82150; 83690; 85025; 85610; 85730; 87040; 87636; 99291; 96365; 96375; 96361; J2405; J0696; 36415; 70450; 71045; 74177; 81001; 87086

== ENCOUNTER 2023-05-14 23:47 | Emergency (ER) | payer MEDICARE ==
[2023-05-15 00:13] VITALS: RESP 16
[2023-05-15] MEDS ORDERED: SODIUM CHLORIDE 0.9% 1,000 ML IV STA ×3 (00:26→04:10)
--- NOTE | 2023-05-15 00:43 | ED ---
General Adult HPI - General Chief complaint: Recheck/Abnormal Lab/Rx Stated complaint: Diarrhea abnormal labs Time Seen by Provider: 05/14/23 23:48 Source: EMS Mode of arrival: EMS - History of Present Illness Initial comments: Dictation was produced using Hypejar dictation software. please excuse any grammatical, word or spelling errors. Chief Complaint: 72-year-old male, a note 2 at baseline presents to the ER for altered mental status and leukocytosis History of Present Illness: 32-year-old male he is allegedly a and O 2 at baseline. Patient here for 1-2 days of worsening mentation described as lethargy along with elevated white blood cell count. Patient is a unreliable historian. He is uncooperative however he is able to state his person and place. Cranial nurse who received report from EMS patient currently being treated for urinary tract infection Unable to obtain detailed ROS secondary to mental status - Related Data Home Medications Medication Instructions Recorded Confirmed Aspirin EC [Ecotrin Low Dose] 81 mg PO DAILY 04/09/23 04/09/23 Previous Rx's Medication Instructions Recorded Acetaminophen Tab [Tylenol] 650 mg PO Q6HR PRN tab 04/11/23 Calcium Carbonate [Tums] 1,000 mg PO Q4HR PRN tab 04/11/23 Carbidopa-Levodopa 25-100 mg 1 each PO TID tab 04/11/23 [Sinemet 25-100 mg] Cyanocobalamin [Vitamin B-12] 1,000 mcg PO DAILY tab 04/11/23 Famotidine [Pepcid] 20 mg PO BID tab 04/11/23 Lactulose [Cephulac] 20 gm PO DAILY PRN ml 04/11/23 Tamsulosin [Flomax] 0.4 mg PO PC-SUPPER cap 04/11/23 Allergies Allergy/AdvReac Type Severity Reaction Status Date / Time No Known Allergies Allergy Verified 05/14/23 23:55 Review of Systems ROS Statement: Those systems with pertinent positive or pertinent negative responses have been documented in the HPI. ROS Other: All systems not noted in ROS Statement are negative. Past Medical History Past Medical History: Coronary Artery Disease (CAD), Chest Pain / Angina, Prostate Disorder Additional Past Medical History / Comment(s): BPH, chronic low back pain, recent root canal-was on ABX. History of Any Multi-Drug Resistant Organisms: None Reported Past Surgical History: Heart Catheterization Additional Past Surgical History / Comment(s): 2014 Cardiac cath-treated medically, wisdom teeth extraction, VASECTOMY Past Anesthesia/Blood Transfusion Reactions: No Reported Reaction Past Psychological History: No Psychological Hx Reported Smoking Status: Never smoker Past Alcohol Use History: Rare Past Drug Use History: None Reported - Past Family History Father Family Medical History: Coronary Artery Disease (CAD) Additional Family Medical History / Comment(s): Father at 88 yrs of age. He had heart problems late in life. Mother Family Medical History: No Reported History Additional Family Medical History / Comment(s): Mother was healthy. She at the age of 94 yrs. General Exam - General Exam Comments Initial Comments: PHYSICAL EXAM: General Impression: Alert and oriented x2/4, not in acute distress HEENT: Normocephalic atraumatic, extra-ocular movements intact, pupils equal and reactive to light bilaterally, mucous membranes moist. Cardiovascular: Heart regular rate and rhythm Chest: Able to complete full sentences, no retractions, no tachypnea Abdomen: abdomen soft, non-tender, non-distended, no organomegaly Musculoskeletal: Pulses present and equal in all extremities, no peripheral edema Motor: no focal deficits noted Neurological: CN II-XII grossly intact, no focal motor or sensory deficits noted Skin: Intact with no visualized rashes Psych: Uncooperative Course Vital Signs 05/14/23 05/15/23 05/15/23 23:50 00:27 00:57 Temperature 99.7 F H Pulse Rate 85 Pulse Rate [ 80 78 Pulse Oximetery ] Respiratory 16 16 16 Rate Blood Pressure 112/63 Blood Pressure 88/54 106/60 [Left Arm Supine] O2 Sat by Pulse 95 96 95 Oximetry 05/15/23 05/15/23 05/15/23 01:27 02:00 02:30 Temperature Pulse Rate Pulse Rate [ 77 75 85 Pulse Oximetery ] Respiratory 16 16 16 Rate Blood Pressure Blood Pressure 95/53 91/54 108/58 [Left Arm Supine] O2 Sat by Pulse 96 96 95 Oximetry 05/15/23 05/15/23 05/15/23 03:00 03:30 04:00 Temperature Pulse Rate Pulse Rate [ 81 74 85 Pulse Oximetery ] Respiratory 16 16 16 Rate Blood Pressure Blood Pressure 117/55 100/54 120/57 [Left Arm Supine] O2 Sat by Pulse 96 95 97 Oximetry 05/15/23 05/15/23 05/15/23 04:45 05:00 05:15 Temperature Pulse Rate Pulse Rate [ 74 75 68 Pulse Oximetery ] Respiratory 16 16 16 Rate Blood Pressure Blood Pressure 102/57 101/55 96/52 [Left Arm Supine] O2 Sat by Pulse 95 95 95 Oximetry 05/15/23 05/15/23 05:30 05:45 Temperature Pulse Rate Pulse Rate [ 71 70 Pulse Oximetery ] Respiratory 16 16 Rate Blood Pressure Blood Pressure 101/57 96/55 [Left Arm Supine] O2 Sat by Pulse 95 96 Oximetry EKG Findings - EKG Comments: EKG Findings:: My EKG interpretation: Ventricular rate 70, sinus rhythm, MN interval 140, QRS 77, QTC 393. No MN prolongation, no QTC prolongation, no ST or T-wave changes noted. Overall, this EKG is unremarkable Medical Decision Making - Medical Decision Making Was pt. sent in by a medical professional or institution (, PA, ESTATE PLANNING ATTORNEY, urgent care, hospital, or [facility]p...) When possible be specific @ -No Did you speak to anyone other than the patient for history (EMS, parent, family, police, friend...)? What history was obtained from this source @ -No Did you review nursing and triage notes (agree or disagree)? Why? @ -I reviewed and agree with nursing and triage notes Were old charts reviewed (outside hosp., previous admission, EMS record, old EKG, old radiological studies, urgent care reports/EKG's, usp records)? Report findings @ -No old charts were reviewed Differential Diagnosis (chest pain, altered mental status, abdominal pain women, abdominal pain men, vaginal bleeding, musculoskeletal, weakness, fever, dyspnea, syncope, headache, dizziness, GI bleed, back pain, seizure, CVA, palpatations, mental health)? @ -Differential Altered Mental Status: Hypoglycemia, DKA, hypercapnia, ETOH, overdose, CO poisoning, trauma, myxedema coma, HTN encephalopathy, infection, encephalitis, psychosis, intercranial hemorrhage, hepatic encephalopathy, meningitis, CVA, this is not meant to be an all-inclusive list EKG interpreted by me (3pts min.). @ -See above X-rays interpreted by me (1pt min.). @ -X-ray shows minimal patchy opacity in the left lower lung CT interpreted by me (1pt min.). @ -CT scan of brain shows no large intracranial bleed U/S interpreted by me (1pt. min.). @ -None done What testing was considered but not performed or refused? (CT, X-rays, U/S, labs)? Why? @ -None What meds were considered but not given or refused? Why? @ -None Did you discuss the management of the patient with other professionals (professionals i.e. DrKathy, PA, ESTATE PLANNING ATTORNEY, lab, RT, psych nurse, web content & social media manager, tractor crane operator, teacher, certified juvenile probation officer, case coordinator)? Give summary @ -discussed with Dr. Hunter for ER to ER transfer. Radiology read of CT film shows slightly increased subdural hematoma at the left posterior parafalcine Was smoking cessation discussed for >3mins.? @ -No Was critical care preformed (if so, how long)? @ -yes, 33 minutes Were there social determinants of health that impacted care today? How? (Homelessness, low income, unemployed, alcoholism, drug addiction, transp ortation, low edu. Level, literacy, decrease access to med. care, [facility], rehab)? @ -No Was there de-escalation of care discussed even if they declined (Discuss DNR or withdrawal of care, Hospice)? DNR status @ -DO NOT RESUSCITATE status What co-morbidities impacted this encounter? (DM, HTN, Smoking, COPD, CAD, Cancer, CVA, ARF, Chemo, Hep., AIDS, mental health diagnosis, sleep apnea, morbid obesity)? @ -None Was patient admitted / discharged? Hospital course, mention meds given and route, prescriptions, significant lab abnormalities, going to OR and other pertinent info. @ -72-year-old male who is a DO NOT RESUSCITATE presents [facility] the ER [facility] for altered mentation and elevated white blood cell count. Currently being treated for UTI with Cipro. Vital signs upon arrival shows soft blood pressure initially 88/54. Is responding well to fluids. Patient given 30 mL per KG bolus. I return evaluation obtained showing leukocytosis 21.1, coag panel is unremarkable. Metabolic panel was within acceptable limits. No lactic acidosis. White blood cell count of 13 in the urine. Viral testing is negative. Computed tomography scan of the brain read by radiology as slightly increased subdural hematoma. At this point there is concern of no intracranial bleed. He is DO NOT RESUSCITATE. Family is agreeable with transfer to [facility] Undiagnosed new problem with uncertain prognosis? @ -No Drug Therapy requiring intensive monitoring for toxicity (Heparin, Nitro, Insulin, Cardizem)? @ -No Were any procedures done? @ -No Diagnosis/symptom? Acute, or Chronic, or Acute on Chronic? Uncomplicated (wit hout systemic symptoms) or Complicated (systemic symptoms)? @ -Altered mental status Side effects of treatment? @ -No Exacerbation, Progression, or Severe Exacerbation? @ -No Poses a threat to life or bodily function? How? (Chest pain, [place], [place], pneumonia, PE, COPD, DKA, ARF, appy, cholecystitis, CVA, Diverticulitis, Homicidal, Suicidal, threat to staff... and all critical care pts) @ -yes - Lab Data Result diagrams: 05/15/23 00:33 05/15/23 00:33 Lab Results 05/15/23 05/15/23 05/15/23 Range/Units 00:33 00:33 00:33 WBC 21.1 H (3.8-10.6) k/uL RBC 4.41 (4.30-5.90) m/uL Hgb 13.1 (13.0-17.5) gm/dL Hct 40.1 (39.0-53.0) % MCV 91.1 (80.0-100.0) fL MCH 29.7 (25.0-35.0) pg MCHC 32.6 (31.0-37.0) g/dL RDW 12.4 (11.5-15.5) % Plt Count 243 (150-450) k/uL MPV 7.8 Neutrophils % 93 % Lymphocytes % 3 % Monocytes % 4 % Eosinophils % 0 % Basophils % 0 % Neutrophils # 19.5 H (1.3-7.7) k/uL Lymphocytes # 0.6 L (1.0-4.8) k/uL Monocytes # 0.8 (0-1.0) k/uL Eosinophils # 0.1 (0-0.7) k/uL Basophils # 0.0 (0-0.2) k/uL PT 11.4 (10.0-12.5) sec INR 1.1 (<1.2) APTT 23.8 (22.0-30.0) sec Sodium (137-145) mmol/L Potassium (3.5-5.1) mmol/L Chloride (98-107) mmol/L Carbon Dioxide (22-30) mmol/L Anion Gap mmol/L BUN (9-20) mg/dL Creatinine (0.66-1.25) mg/dL Est GFR (CKD-EPI)AfAm (>60 ml/min/1.73 sqM) Est GFR (CKD-EPI)NonAf (>60 ml/min/1.73 sqM) Glucose (74-99) mg/dL Plasma Lactic Acid Piter (0.7-2.0) mmol/L Calcium (8.4-10.2) mg/dL Ionized Calcium Raegan (4.5-5.3) mg/dL Magnesium (1.6-2.3) mg/dL Total Bilirubin (0.2-1.3) mg/dL AST (17-59) U/L ALT (4-49) U/L Alkaline Phosphatase (38-126) U/L Troponin I (0.000-0.034) ng/mL Total Protein (6.3-8.2) g/dL Albumin (3.5-5.0) g/dL Urine Color Yellow Urine Appearance Slightly Cloudy (Clear) Urine pH 5.5 (5.0-8.0) Ur Specific Br[place]ett 1.035 (1.001-1.035) Urine Protein 1+ H (Negative) Urine Glucose (UA) Negative (Negative) Urine Ketones Negative (Negative) Urine Blood TR (Negative) Urine Nitrite Negative (Negative) Urine Bilirubin Negative (Negative) Urine Urobilinogen 0.2 (<2.0) mg/dL Ur Leukocyte Esterase Negative (Negative) Urine RBC <1 (0-5) /hpf Urine WBC 13 H (0-5) /hpf Ur Squamous Epith Cells 2 (0-4) /hpf Amorphous Sediment Rare H (None) /hpf Hyaline Casts 12 H (0-2) /lpf Urine Mucus Many H (None) /hpf Influenza Type A (PCR) (Not Detectd) Influenza Type B (PCR) (Not Detectd) RSV (PCR) (Not Detectd) SARS-CoV-2 (PCR) (Not Detectd) 05/15/23 05/15/2323 Range/Units 00:33 00:33 00:35 WBC (3.8-10.6) k/uL RBC (4.30-5.90) m/uL Hgb (13.0-17.5) gm/dL Hct (39.0-53.0) % MCV (80.0-100.0) fL MCH (25.0-35.0) pg MCHC (31.0-37.0) g/dL RDW (11.5-15.5) % Plt Count (150-450) k/uL MPV Neutrophils % % Lymphocytes % % Monocytes % % Eosinophils % % Basophils % % Neutrophils # (1.3-7.7) k/uL Lymphocytes # (1.0-4.8) k/uL Monocytes # (0-1.0) k/uL Eosinophils # (0-0.7) k/uL Basophils # (0-0.2) k/uL PT (10.0-12.5) sec INR (<1.2) APTT (22.0-30.0) sec Sodium 138 (137-145) mmol/L Potassium 4.2 (3.5-5.1) mmol/L Chloride 106 (98-107) mmol/L Carbon Dioxide 22 (22-30) mmol/L Anion Gap 10 mmol/L BUN 22 H (9-20) mg/dL Creatinine 0.74 (0.66-1.25) mg/dL Est GFR (CKD-EPI)AfAm >90 (>60 ml/min/1.73 sqM) Est GFR (CKD-EPI)NonAf >90 (>60 ml/min/1.73 sqM) Glucose 140 H (74-99) mg/dL Plasma Lactic Acid Piter 1.7 (0.7-2.0) mmol/L Calcium 8.6 (8.4-10.2) mg/dL Ionized Calcium Raegan 4.8 (4.5-5.3) mg/dL Magnesium 2.1 (1.6-2.3) mg/dL Total Bilirubin 0.7 (0.2-1.3) mg/dL AST 23 (17-59) U/L ALT 17 (4-49) U/L Alkaline Phosphatase 81 (38-126) U/L Troponin I 0.014 (0.000-0.034) ng/mL Total Protein 6.0 L (6.3-8.2) g/dL Albumin 3.3 L (3.5-5.0) g/dL Urine Color Urine Appearance (Clear) Urine pH (5.0-8.0) Ur Specific Br[place] (1.001-1.035) Urine Protein (Negative) Urine Glucose (UA) (Negative) Urine Ketones (Negative) Urine Blood (Negative) Urine Nitrite (Negative) Urine Bilirubin (Negative) Urine Urobilinogen (<2.0) mg/dL Ur Leukocyte Esterase (Negative) Urine RBC (0-5) /hpf Urine WBC (0-5) /hpf Ur Squamous Epith Cells (0-4) /hpf Amorphous Sediment (None) /hpf Hyaline Casts (0-2) /lpf Urine Mucus (None) /hpf Influenza Type A (PCR) (Not Detectd) Influenza Type B (PCR) (Not Detectd) RSV (PCR) (Not Detectd) SARS-CoV-2 (PCR) (Not Detectd) 05/15/23 Range/Units 01:20 WBC (3.8-10.6) k/uL RBC (4.30-5.90) m/uL Hgb (13.0-17.5) gm/dL Hct (39.0-53.0) % MCV (80.0-100.0) fL MCH (25.0-35.0) pg MCHC (31.0-37.0) g/dL RDW (11.5-15.5) % Plt Count (150-450) k/uL MPV Neutrophils % % Lymphocytes % % Monocytes % % Eosinophils % % Basophils % % Neutrophils # (1.3-7.7) k/uL Lymphocytes # (1.0-4.8) k/uL Monocytes # (0-1.0) k/uL Eosinophils # (0-0.7) k/uL Basophils # (0-0.2) k/uL PT (10.0-12.5) sec INR (<1.2) APTT (22.0-30.0) sec Sodium (137-145) mmol/L Potassium (3.5-5.1) mmol/L Chloride (98-107) mmol/L Carbon Dioxide (22-30) mmol/L Anion Gap mmol/L BUN (9-20) mg/dL Creatinine (0.66-1.25) mg/dL Est GFR (CKD-EPI)AfAm (>60 ml/min/1.73 sqM) Est GFR (CKD-EPI)NonAf (>60 ml/min/1.73 sqM) Glucose (74-99) mg/dL Plasma Lactic Acid Piter (0.7-2.0) mmol/L Calcium (8.4-10.2) mg/dL Ionized Calcium Raegan (4.5-5.3) mg/dL Magnesium (1.6-2.3) mg/dL Total Bilirubin (0.2-1.3) mg/dL AST (17-59) U/L ALT (4-49) U/L Alkaline Phosphatase (38-126) U/L Troponin I (0.000-0.034) ng/mL Total Protein (6.3-8.2) g/dL Albumin (3.5-5.0) g/dL Urine Color Urine Appearance (Clear) Urine pH (5.0-8.0) Ur Specific Br[place]ett (1.001-1.035) Urine Protein (Negative) Urine Glucose (UA) (Negative) Urine Ketones (Negative) Urine Blood (Negative) Urine Nitrite (Negative) Urine Bilirubin (Negative) Urine Urobilinogen (<2.0) mg/dL Ur Leukocyte Esterase (Negative) Urine RBC (0-5) /hpf Urine WBC (0-5) /hpf Ur Squamous Epith Cells (0-4) /hpf Amorphous Sediment (None) /hpf Hyaline Casts (0-2) /lpf Urine Mucus (None) /hpf Influenza Type A (PCR) Not Detected (Not Detectd) Influenza Type B (PCR) Not Detected (Not Detectd) RSV (PCR) Not Detected (Not Detectd) SARS-CoV-2 (PCR) Not Detected (Not Detectd) Disposition Clinical Impression: Intracranial bleed Disposition: OTHER INSTITUTION NOT DEFINED Condition: Fair Referrals: Carl Meyers MD [Primary Care Provider] - 1-2 days Time of Disposition: 06:03 - Out of Hospital Transfer - Req. Specs Out of Hospital Transfer - Requested Specifics: Other Emergency Center ([facility])
[2023-05-15 01:12] LABS: Basophils % (A) 0 %; Eosinophils # (A) 0.1 k/uL (0-0.7); Eosinophils % (A) 0 %; HCT 40.1 % (39.0-53.0); HGB 13.1 gm/dL (13.0-17.5); Lymphocytes # (A) 0.6 k/uL (1.0-4.8); Lymphocytes % (A) 3 %; MCH 29.7 pg (25.0-35.0); MCHC 32.6 g/dL (31.0-37.0); MCV 91.1 fL (80.0-100.0); Mean Platelet Volume 7.8; Monocytes # (A) 0.8 k/uL (0-1.0); Monocytes % (A) 4 %; Neutrophils # (A) 19.5 k/uL (1.3-7.7); Neutrophils % (A) 93 %; Platelet Count 243 k/uL (150-450); RBC 4.41 m/uL (4.30-5.90); RDW 12.4 % (11.5-15.5); WBC 21.1 k/uL (3.8-10.6)
[2023-05-15 01:36] LABS: Amorphous Sediment,Urine Rare /hpf; Hyaline Casts,Urine 12 /lpf (0-2); Mucus,Urine Many /hpf; RBC,Urine <1 /hpf (0-5); Squamous Epithelial Cell,Urine 2 /hpf (0-4); WBC,Urine 13 /hpf (0-5)
[2023-05-15 01:39] LABS: Color,Urine Yellow
[2023-05-15 01:40] LABS: Appearance,Urine Slightly Cloudy (Clear); Bilirubin,Urine Negative (Negative); Blood,Urine TR (Negative); Glucose,Urine (UA) Negative (Negative); Ketones,Urine Negative (Negative); Leukocyte Esterase,Urine Negative (Negative); Nitrite,Urine Negative (Negative); PH, Urine 5.5 (5.0-8.0); Protein,Urine 1+ (Negative); Specific Gravity,Urine 1.035 (1.001-1.035); Urobilinogen,Urine 0.2 mg/dL (<2.0)
[2023-05-15 01:41] LABS: Ionized Calcium 4.8 mg/dL (4.5-5.3)
[2023-05-15 01:51] LABS: ALT 17 U/L (4-49); AST 23 U/L (17-59); African American GFR (CKD) >90 (>60 ml/min/1.73 sqM); Albumin 3.3 g/dL (3.5-5.0); Alkaline Phosphatase 81 U/L (38-126); Anion Gap 10 mmol/L; Blood Urea Nitrogen 22 mg/dL (9-20); Calcium 8.6 mg/dL (8.4-10.2); Carbon Dioxide 22 mmol/L (22-30); Chloride 106 mmol/L (98-107); Glucose 140 mg/dL (74-99); Magnesium 2.1 mg/dL (1.6-2.3); Non-African American GFR(CKD) >90 (>60 ml/min/1.73 sqM); Potassium 4.2 mmol/L (3.5-5.1); Sodium 138 mmol/L (137-145); Total Bilirubin 0.7 mg/dL (0.2-1.3)
[2023-05-15 01:52] LABS: INR 1.1 (<1.2); Partial Thromboplastin Time 23.8 sec (22.0-30.0); Prothrombin Time 11.4 sec (10.0-12.5)
[2023-05-15] MEDS ORDERED: VANCOMYCIN IV PER PHARMACY 1 EACH MISC MISCELLANE PRN (02:10)
[2023-05-15] MEDS ORDERED: VANCOMYCIN 1,000 MG in SODIUM CHLORIDE 0.9% 250 ML IVPB STA (02:19)
--- NOTE | 2023-05-15 02:21 | XR ---
EXAM: XR Chest, 1 View CLINICAL HISTORY: ITS.REASON XR Reason: ams TECHNIQUE: Frontal view of the chest. COMPARISON: XR Chest dated 05/05/2023 FINDINGS: Lungs: Low lung volumes. No focal consolidation. Query minimal patchy opacity in the left lower lung. Similar to the prior. Pleural space: Unremarkable. No pneumothorax. Heart: Unremarkable. No cardiomegaly. Mediastinum: Unremarkable. Bones/joints: Unremarkable. IMPRESSION: Query minimal patchy opacity in the left lower lung. May represent atelectasis or minimal airspace disease.
[2023-05-15] MEDS ORDERED: PIPERACILLIN-TAZOBACTAM 3.375 GM in SODIUM CHLORIDE 0.9% 100 ML IVPB SCH (04:00)
[2023-05-15 06:19] VITALS: BP 106/58; PULSE 65; TEMP 98.9
--- NOTE | 2023-05-15 08:49 | CT ---
EXAMINATION TYPE: CT brain wo con CT DLP: 1248 mGycm, Automated exposure control for dose reduction was used. DATE OF EXAM: 05/15/2023 1:30 AM COMPARISON: 05/05/2023. CLINICAL INDICATION:Male, 72 years old with history of ams, TECHNIQUE: Brain: Axial CT images of the brain were obtained with coronal and sagittal reformats created and rev iewed. Contrast used: None. Oral contrast used: None. FINDINGS: Brain: Extra-axial spaces: No abnormal extra-axial fluid collections. Ventricular system: Dilatation in proportion to cerebral atrophy. Cerebral parenchyma: Cerebral atrophy. No acute intraparenchymal hemorrhage or mass effect. The hurst -white junction is well differentiated. Scattered hypoattenuating areas are seen within the white mat ter. Cerebellum: Unremarkable. Mass effect: No evidence of midline shift. Intracranial vasculature: Atherosclerotic calcifications of the intracranial vessels. Soft tissues: Normal. Calvarium/osseous structures: No depressed skull fracture. Paranasal sinuses and mastoid air cells: Mild scattered paranasal sinus disease. Visualized orbits: Orbital contents are intact. IMPRESSION: 1. No acute intracranial process. 2. Nonspecific white matter changes, likely secondary to chronic small vessel ischemic disease.
[2023-05-15] MEDS ORDERED: VANCOMYCIN 1,000 MG in SODIUM CHLORIDE 0.9% 250 ML IVPB SCH (18:00)
== END 2023-05-15 06:37 | disposition short-term general hospital (02) ==
LOC: EC 23:47
DX: I62.9 Nontraumatic intracranial hemorrhage, unspecified (principal); R41.82 Altered mental status, unspecified; I25.10 Atherosclerotic heart disease of native coronary artery without angina pectoris; Z79.82 Long term (current) use of aspirin; Z20.822 Contact with and (suspected) exposure to COVID-19
CPT/HCPCS: 99291 ×2; 96365 ×2; 96366 ×2; 96368 ×2; 96361 ×3; 36415; 93005; 80053; 82330; 83605; 83735; 84484; 85025; 85610; 85730; 81001; 87040; 87086; 87636; 71045; 70450; J2543; J3370

== ENCOUNTER 2023-05-20 16:54 | Emergency (ER) | payer MEDICARE ==
[2023-05-20 17:36] LABS: Basophils % (A) 0 %; Eosinophils # (A) 0.2 k/uL (0-0.7); Eosinophils % (A) 2 %; HCT 39.6 % (39.0-53.0); HGB 13.4 gm/dL (13.0-17.5); Lymphocytes # (A) 0.7 k/uL (1.0-4.8); Lymphocytes % (A) 7 %; MCH 30.6 pg (25.0-35.0); MCHC 33.9 g/dL (31.0-37.0); Mean Platelet Volume 7.3; Monocytes # (A) 0.5 k/uL (0-1.0); Monocytes % (A) 4 %; Neutrophils # (A) 9.6 k/uL (1.3-7.7); Neutrophils % (A) 87 %; Platelet Count 283 k/uL (150-450); RDW 12.4 % (11.5-15.5)
[2023-05-20 17:44] LABS: ALT 9 U/L (4-49); AST 24 U/L (17-59); African American GFR (CKD) >90 (>60 ml/min/1.73 sqM); Albumin 3.7 g/dL (3.5-5.0); Alkaline Phosphatase 85 U/L (38-126); Anion Gap 12 mmol/L; Blood Urea Nitrogen 20 mg/dL (9-20); Calcium 8.9 mg/dL (8.4-10.2); Carbon Dioxide 24 mmol/L (22-30); Chloride 104 mmol/L (98-107); Glucose 122 mg/dL (74-99); Magnesium 2.3 mg/dL (1.6-2.3); Non-African American GFR(CKD) 90 (>60 ml/min/1.73 sqM); Potassium 4.3 mmol/L (3.5-5.1); Sodium 140 mmol/L (137-145); Total Bilirubin 0.6 mg/dL (0.2-1.3); Total Protein 6.7 g/dL (6.3-8.2)
[2023-05-20 17:45] LABS: Partial Thromboplastin Time 23.6 sec (22.0-30.0)
--- NOTE | 2023-05-20 17:53 | XR ---
EXAMINATION TYPE: XR chest 2V DATE OF EXAM: 05/20/2023 5:45 PM CLINICAL INDICATION:Male, 72 years old with history of fall; H COMPARISON: Chest radiographs from TECHNIQUE: XR chest 2V Frontal and lateral views of the chest. FINDINGS: Lungs/Pleura: There is no evidence of pleural effusion, focal consolidation, or pneumothorax. Pulmonary vascularity: Unremarkable. Heart/mediastinum: Cardiomediastinal silhouette is unremarkable. Musculoskeletal: No acute osseous pathology. IMPRESSION: No acute cardiopulmonary disease/process.
--- NOTE | 2023-05-20 18:13 | ED ---
Fall HPI - General Chief Complaint: Fall Stated Complaint: Fall Time Seen by Provider: 05/20/23 16:56 Source: patient, EMS, RN notes reviewed Mode of arrival: EMS - History of Present Illness Initial Comments: Patient is a 72-year-old male who presents to the emergency department for fall. Patient and unwitnessed fall at his [place] [facility] facility today. Patient is allegedly A&O x 2 at baseline. Patient is an unreliable historian he does answer some questions. Patient states he tripped and hit his head on the ground. He denies blood thinner use. He denies headache, numbness, tingling, nausea, vomiting. Denies chest pain and shortness of breath. Denies other injury. Patient currently being treated for urinary tract infection with ciprofloxacin. He denies urinary symptoms. Patient was diagnosed with a subdural hematoma mid-April. He was recently evaluated in our emergency department on 05/15 for altered mental status and elevated white blood cell count. He was transferred to [facility] for slightly increasd subdural hematoma. - Related Data Home Medications Medication Instructions Recorded Confirmed Aspirin EC [Ecotrin Low Dose] 81 mg PO DAILY 04/09/23 04/09/23 Previous Rx's Medication Instructions Recorded Acetaminophen Tab [Tylenol] 650 mg PO Q6HR PRN tab 04/11/23 Calcium Carbonate [Tums] 1,000 mg PO Q4HR PRN tab 04/11/23 Carbidopa-Levodopa 25-100 mg 1 each PO TID tab 04/11/23 [Sinemet 25-100 mg] Cyanocobalamin [Vitamin B-12] 1,000 mcg PO DAILY tab 04/11/23 Famotidine [Pepcid] 20 mg PO BID tab 04/11/23 Lactulose [Cephulac] 20 gm PO DAILY PRN ml 04/11/23 Tamsulosin [Flomax] 0.4 mg PO PC-SUPPER cap 04/11/23 Allergies Allergy/AdvReac Type Severity Reaction Status Date / Time No Known Allergies Allergy Verified 05/20/23 18:01 Review of Systems ROS Statement: Those systems with pertinent positive or pertinent negative responses have been documented in the HPI. ROS Other: All systems not noted in ROS Statement are negative. Past Medical History Past Medical History: Coronary Artery Disease (CAD), Chest Pain / Angina, Prostate Disorder Additional Past Medical History / Comment(s): BPH, chronic low back pain, recent root canal-was on ABX. History of Any Multi-Drug Resistant Organisms: None Reported Past Surgical History: Heart Catheterization Additional Past Surgical History / Comment(s): 2013 Cardiac cath-treated medically, wisdom teeth extraction, VASECTOMY Past Anesthesia/Blood Transfusion Reactions: No Reported Reaction Past Psychological History: No Psychological Hx Reported Smoking Status: Never smoker Past Alcohol Use History: Rare Past Drug Use History: None Reported - Past Family History Father Family Medical History: Coronary Artery Disease (CAD) Additional Family Medical History / Comment(s): Father at 88 yrs of age. He had heart problems late in life. Mother Family Medical History: No Reported History Additional Family Medical History / Comment(s): Mother was healthy. She at the age of 94 yrs. General Exam General appearance: alert, in no apparent distress Head exam: Present: atraumatic, normocephalic, normal inspection Eye exam: Present: normal appearance, PERRL, EOMI. Absent: scleral icterus, conjunctival injection, periorbital swelling ENT exam: Present: TM's normal bilaterally Neck exam: Present: normal inspection, full ROM. Absent: tenderness, meningismus, lymphadenopathy Respiratory exam: Present: normal lung sounds bilaterally. Absent: respiratory distress, wheezes, rales, rhonchi, stridor Cardiovascular Exam: Present: regular rate, normal rhythm, normal heart sounds. Absent: systolic murmur, diastolic murmur, rubs, gallop, clicks Neurological exam: Present: alert Expanded Sensory exam: Upper Extremity Light Touch: Normal, Lower Extremity Light Touch: Normal Motor strength exam: RUE: 5, LUE: 5, RLE: 5, LLE: 5 Skin exam: Present: warm, dry, intact, normal color. Absent: rash Course Vital Signs 05/20/23 05/20/23 17:01 19:07 Temperature 98.6 F 98.4 F Pulse Rate 86 74 Respiratory 18 16 Rate Blood Pressure 175/84 166/76 O2 Sat by Pulse 95 99 Oximetry Medical Decision Making - Medical Decision Making EKG taken at 17:39, interpreted by myself Sinus rhythm, no ST segment changes Ventricular rate 75, SD interval 156, QRS duration 89, QTc 395 Was pt. sent in by a medical professional or institution (, PA, ACCOUNTS COLLECTOR, urgent care, hospital, or [place] [facility]...) When possible be specific @ -Nursing facility Did you speak to anyone other than the patient for history (EMS, parent, family, police, friend...)? What history was obtained from this source @ -No Did you review nursing and triage notes (agree or disagree)? Why? @ yes, I agree Were old charts reviewed (outside hosp., previous admission, EMS record, old EKG, old radiological studies, urgent care reports/EKG's, [place] [facility] records)? Report findings @ --Reviewed ED notes from 05/04 and 05/15 Differential Diagnosis (chest pain, altered mental status, abdominal pain women, abdominal pain men, vaginal bleeding, weakness, fever, dyspnea, syncope, headache, dizziness, GI bleed, back pain, seizure, CVA, palpatations, mental health)? @ Differential Headache: Migraine, tension, cluster, carbon monoxide, central venous thrombosis, pension karma temporal arteritis, acute closure glaucoma, intercranial hemorrhage, mastoiditis, sinusitis, head injury, this is not meant to be an all-inclusive list. EKG interpreted by me (3pts min.). @ -As above X-rays interpreted by me (1pt min.). @ -no acute cardiopulmonary process CT interpreted by me (1pt min.). @ -no acute intracranial process, no cervical spine fracture U/S interpreted by me (1pt. min.). @ -None done What testing was considered but not performed or refused? (CT, X-rays, U/S, labs)? Why? @ -None What meds were considered but not given or refused? Why? @ -None Did you discuss the management of the patient with other professionals (professionals i.e. , PA, ACCOUNTS COLLECTOR, lab, RT, psych nurse, addiction social worker, oracle security consultant, teacher, licensed loan officer assistant, correctional case manager)? Give summary @ -No Was smoking cessation discussed for >3mins.? @ -No Was critical care preformed (if so, how long)? @ -No Were there social determinants of health that impacted care today? How? (Homelessness, low income, unemployed, alcoholism, drug addiction, transportation, low edu. Level, literacy, decrease access to med. care, fdc, rehab)? @ -No Was there de-escalation of care discussed even if they declined (Discuss DNR or withdrawal of care, Hospice)? DNR status @ -No What co-morbidities impacted this encounter? (DM, HTN, Smoking, COPD, CAD, Cancer, CVA, ARF, Chemo, Hep., AIDS, mental health diagnosis, sleep apnea, morbid obesity)? @ -None Was patient admitted / discharged? Hospital course, mention meds given and route, prescriptions, significant lab abnormalities, going to OR and other pertinent info. @ -72-year-old male with recent subdural hemorrhage who presents for fall. GCS is 15. Patient is neurologically at his baseline. No evidence of traumatic inj ury. CT interpreted by myself showing no acute intracranial process. Patient in stable medical condition for discharge back to his facility. Undiagnosed new problem with uncertain prognosis? @ -No Drug Therapy requiring intensive monitoring for toxicity (Heparin, Nitro, Insulin, Cardizem)? @ -No Were any procedures done? @ -No Diagnosis/symptom? @ -[Fall, head injury Acute, or Chronic, or Acute on Chronic? @ -Acute Uncomplicated (without systemic symptoms) or Complicated (systemic symptoms)? @ -[Uncomplicated Side effects of treatment? @ -No Exacerbation, Progression, or Severe Exacerbation? @ -No Poses a threat to life or bodily function? How? (Chest pain, [place], [place], pneumonia, PE, COPD, DKA, ARF, appy, cholecystitis, CVA, Diverticulitis, Homicidal, Suicidal, threat to staff... and all critical care pts) @ -No] Dr. Escalera is my attending - Lab Data Result diagrams: 05/20/23 17:13 05/20/23 17:13 Lab Results 05/20/23 05/20/23 05/20/23 Range/Units 17:13 17:13 17:13 WBC 11.0 H (3.8-10.6) k/uL RBC 4.40 (4.30-5.90) m/uL Hgb 13.4 (13.0-17.5) gm/dL Hct 39.6 (39.0-53.0) % MCV 90.0 (80.0-100.0) fL MCH 30.6 (25.0-35.0) pg MCHC 33.9 (31.0-37.0) g/dL RDW 12.4 (11.5-15.5) % Plt Count 283 (150-450) k/uL MPV 7.3 Neutrophils % 87 % Lymphocytes % 7 % Monocytes % 4 % Eosinophils % 2 % Basophils % 0 % Neutrophils # 9.6 H (1.3-7.7) k/uL Lymphocytes # 0.7 L (1.0-4.8) k/uL Monocytes # 0.5 (0-1.0) k/uL Eosinophils # 0.2 (0-0.7) k/uL Basophils # 0.0 (0-0.2) k/uL PT (10.0-12.5) sec INR (<1.2) APTT (22.0-30.0) sec Sodium 140 (137-145) mmol/L Potassium 4.3 (3.5-5.1) mmol/L Chloride 104 (98-107) mmol/L Carbon Dioxide 24 (22-30) mmol/L Anion Gap 12 mmol/L BUN 20 (9-20) mg/dL Creatinine 0.77 (0.66-1.25) mg/dL Est GFR (CKD-EPI)AfAm >90 (>60 ml/min/1.73 sqM) Est GFR (CKD-EPI)NonAf 90 (>60 ml/min/1.73 sqM) Glucose 122 H (74-99) mg/dL Calcium 8.9 (8.4-10.2) mg/dL Magnesium 2.3 (1.6-2.3) mg/dL Total Bilirubin 0.6 (0.2-1.3) mg/dL AST 24 (17-59) U/L ALT 9 (4-49) U/L Alkaline Phosphatase 85 (38-126) U/L Troponin I <0.012 (0.000-0.034) ng/mL Total Protein 6.7 (6.3-8.2) g/dL Albumin 3.7 (3.5-5.0) g/dL Urine Color Urine Appearance (Clear) Urine pH (5.0-8.0) Ur Specific [place] (1.001-1.035) Urine Protein (Negative) Urine Glucose (UA) (Negative) Urine Ketones (Negative) Urine Blood (Negative) Urine Nitrite (Negative) Urine Bilirubin (Negative) Urine Urobilinogen (<2.0) mg/dL Ur Leukocyte Esterase (Negative) Urine RBC (0-5) /hpf Urine WBC (0-5) /hpf Ur Squamous Epith Cells (0-4) /hpf Urine Mucus (None) /hpf 05/20/23 05/20/23 Range/Units 17:13 17:18 WBC (3.8-10.6) k/uL RBC (4.30-5.90) m/uL Hgb (13.0-17.5) gm/dL Hct (39.0-53.0) % MCV (80.0-100.0) fL MCH (25.0-35.0) pg MCHC (31.0-37.0) g/dL RDW (11.5-15.5) % Plt Count (150-450) k/uL MPV Neutrophils % % Lymphocytes % % Monocytes % % Eosinophils % % Basophils % % Neutrophils # (1.3-7.7) k/uL Lymphocytes # (1.0-4.8) k/uL Monocytes # (0-1.0) k/uL Eosinophils # (0-0.7) k/uL Basophils # (0-0.2) k/uL PT 11.0 (10.0-12.5) sec INR 1.0 (<1.2) APTT 23.6 (22.0-30.0) sec Sodium (137-145) mmol/L Potassium (3.5-5.1) mmol/L Chloride (98-107) mmol/L Carbon Dioxide (22-30) mmol/L Anion Gap mmol/L BUN (9-20) mg/dL Creatinine (0.66-1.25) mg/dL Est GFR (CKD-EPI)AfAm (>60 ml/min/1.73 sqM) Est GFR (CKD-EPI)NonAf (>60 ml/min/1.73 sqM) Glucose (74-99) mg/dL Calcium (8.4-10.2) mg/dL Magnesium (1.6-2.3) mg/dL Total Bilirubin (0.2-1.3) mg/dL AST (17-59) U/L ALT (4-49) U/L Alkaline Phosphatase (38-126) U/L Troponin I (0.000-0.034) ng/mL Total Protein (6.3-8.2) g/dL Albumin (3.5-5.0) g/dL Urine Color Yellow Urine Appearance Cloudy (Clear) Urine pH 6.5 (5.0-8.0) Ur Specific [place] 1.028 (1.001-1.035) Urine Protein Trace H (Negative) Urine Glucose (UA) Negative (Negative) Urine Ketones Negative (Negative) Urine Blood Trace H (Negative) Urine Nitrite Negative (Negative) Urine Bilirubin Negative (Negative) Urine Urobilinogen <2.0 (<2.0) mg/dL Ur Leukocyte Esterase Negative (Negative) Urine RBC 8 H (0-5) /hpf Urine WBC 7 H (0-5) /hpf Ur Squamous Epith Cells 1 (0-4) /hpf Urine Mucus Many H (None) /hpf Disposition Clinical Impression: Fall, Head injury Disposition: HOME SELF-CARE Condition: Good Instructions (If sedation given, give patient instructions): Fall Prevention (ED) Additional Instructions: CT shows no acute intracranial process. Patient should follow-up with primary care provider. Return to the emergency department if he experiences new, concerning, or worsening symptoms Is patient prescribed a controlled substance at d/c from ED?: No Referrals: Carl Meyers MD [Primary Care Provider] - 1-2 days
--- NOTE | 2023-05-20 18:30 | CT ---
EXAMINATION TYPE: CT brain true wo con DATE OF EXAM: 05/20/2023 COMPARISON: 05/15/2023 HISTORY: fall CT DLP: 1641.6 mGycm, Automated exposure control for dose reduction was used. CONTRAST: Patient injected with 0 mL of Isovue 300. CT of the brain is performed utilizing 3 mm thick sections through the posterior fossa and 3 mm thick sections through the remaining calvarium. There is some beam hardening artifact limiting fine detai l in the lower and anterior portions of the aorta. Study is performed within 24 hours of arrival to the hospital. No abnormal hyperdensity is present to suggest an acute intracranial hemorrhage. No mass lesion is evident. No acute infarcts are evident. Ventricles and sulci are appropriate for the patient age. Paranasal sinuses and mastoid air cells within the [id number] are clear. IMPRESSIONS: 1. No acute intracranial process. Follow-up MRI can be performed as clinically indicated. 2. There is some limitation anterior portion of the brain. Fine detail may not be well-visualized. CT cervical spine. COMPARISON: None CT of the cervical spine is performed in the axial plane at 2 mm thick sections. Reconstructed image s in the coronal, and sagittal plane are reviewed on the computer. No acute fractures are evident. There is cervical kyphosis throughout the cervical spine. This can be related to patient positioning or muscle spasm. Disc heights are preserved. Vertebral body heights are preserved. No spinal canal stenosis is evident. No neural foraminal stenosis is evident. IMPRESSION: 1. Cervical kyphosis. 2. No acute osseous abnormality
[2023-05-20 18:40] LABS: Appearance,Urine Cloudy (Clear); Bilirubin,Urine Negative (Negative); Blood,Urine Trace (Negative); Color,Urine Yellow; Glucose,Urine (UA) Negative (Negative); Ketones,Urine Negative (Negative); Leukocyte Esterase,Urine Negative (Negative); Mucus,Urine Many /hpf; Nitrite,Urine Negative (Negative); PH, Urine 6.5 (5.0-8.0); Protein,Urine Trace (Negative); RBC,Urine 8 /hpf (0-5); Specific Gravity,Urine 1.028 (1.001-1.035); Squamous Epithelial Cell,Urine 1 /hpf (0-4); Urobilinogen,Urine <2.0 mg/dL (<2.0); WBC,Urine 7 /hpf (0-5)
--- NOTE | 2023-05-20 19:12 | ED ---
Fall HPI - General Chief Complaint: Fall Stated Complaint: Fall Time Seen by Provider: 05/20/23 16:56 Source: patient, EMS, RN notes reviewed Mode of arrival: EMS - Related Data Home Medications Medication Instructions Recorded Confirmed Aspirin EC [Ecotrin Low Dose] 81 mg PO DAILY 04/09/23 04/09/23 Previous Rx's Medication Instructions Recorded Acetaminophen Tab [Tylenol] 650 mg PO Q6HR PRN tab 04/11/23 Calcium Carbonate [Tums] 1,000 mg PO Q4HR PRN tab 04/11/23 Carbidopa-Levodopa 25-100 mg 1 each PO TID tab 04/11/23 [Sinemet 25-100 mg] Cyanocobalamin [Vitamin B-12] 1,000 mcg PO DAILY tab 04/11/23 Famotidine [Pepcid] 20 mg PO BID tab 04/11/23 Lactulose [Cephulac] 20 gm PO DAILY PRN ml 04/11/23 Tamsulosin [Flomax] 0.4 mg PO PC-SUPPER cap 04/11/23 Allergies Allergy/AdvReac Type Severity Reaction Status Date / Time No Known Allergies Allergy Verified 05/20/23 18:01 Review of Systems ROS Statement: Those systems with pertinent positive or pertinent negative responses have been documented in the HPI. ROS Other: All systems not noted in ROS Statement are negative. Past Medical History Past Medical History: Coronary Artery Disease (CAD), Chest Pain / Angina, Prostate Disorder Additional Past Medical History / Comment(s): BPH, chronic low back pain, recent root canal-was on ABX. History of Any Multi-Drug Resistant Organisms: None Reported Past Surgical History: Heart Catheterization Additional Past Surgical History / Comment(s): 2014 Cardiac cath-treated medically, wisdom teeth extraction, VASECTOMY Past Anesthesia/Blood Transfusion Reactions: No Reported Reaction Past Psychological History: No Psychological Hx Reported Smoking Status: Never smoker Past Alcohol Use History: Rare Past Drug Use History: None Reported - Past Family History Father Family Medical History: Coronary Artery Disease (CAD) Additional Family Medical History / Comment(s): Father at 88 yrs of age. He had heart problems late in life. Mother Family Medical History: No Reported History Additional Family Medical History / Comment(s): Mother was healthy. She at the age of 94 yrs. General Exam General appearance: alert, in no apparent distress Course Vital Signs 05/20/23 05/20/23 17:01 19:07 Temperature 98.6 F 98.4 F Pulse Rate 86 74 Respiratory 18 16 Rate Blood Pressure 175/84 166/76 O2 Sat by Pulse 95 99 Oximetry Medical Decision Making - Lab Data Result diagrams: 05/20/23 17:13 05/20/23 17:13 Lab Results 05/20/23 05/20/23 05/20/23 Range/Units 17:13 17:13 17:13 WBC 11.0 H (3.8-10.6) k/uL RBC 4.40 (4.30-5.90) m/uL Hgb 13.4 (13.0-17.5) gm/dL Hct 39.6 (39.0-53.0) % MCV 90.0 (80.0-100.0) fL MCH 30.6 (25.0-35.0) pg MCHC 33.9 (31.0-37.0) g/dL RDW 12.4 (11.5-15.5) % Plt Count 283 (150-450) k/uL MPV 7.3 Neutrophils % 87 % Lymphocytes % 7 % Monocytes % 4 % Eosinophils % 2 % Basophils % 0 % Neutrophils # 9.6 H (1.3-7.7) k/uL Lymphocytes # 0.7 L (1.0-4.8) k/uL Monocytes # 0.5 (0-1.0) k/uL Eosinophils # 0.2 (0-0.7) k/uL Basophils # 0.0 (0-0.2) k/uL PT (10.0-12.5) sec INR (<1.2) APTT (22.0-30.0) sec Sodium 140 (137-145) mmol/L Potassium 4.3 (3.5-5.1) mmol/L Chloride 104 (98-107) mmol/L Carbon Dioxide 24 (22-30) mmol/L Anion Gap 12 mmol/L BUN 20 (9-20) mg/dL Creatinine 0.77 (0.66-1.25) mg/dL Est GFR (CKD-EPI)AfAm >90 (>60 ml/min/1.73 sqM) Est GFR (CKD-EPI)NonAf 90 (>60 ml/min/1.73 sqM) Glucose 122 H (74-99) mg/dL Calcium 8.9 (8.4-10.2) mg/dL Magnesium 2.3 (1.6-2.3) mg/dL Total Bilirubin 0.6 (0.2-1.3) mg/dL AST 24 (17-59) U/L ALT 9 (4-49) U/L Alkaline Phosphatase 85 (38-126) U/L Troponin I <0.012 (0.000-0.034) ng/mL Total Protein 6.7 (6.3-8.2) g/dL Albumin 3.7 (3.5-5.0) g/dL Urine Color Urine Appearance (Clear) Urine pH (5.0-8.0) Ur Specific [place] (1.001-1.035) Urine Protein (Negative) Urine Glucose (UA) (Negative) Urine Ketones (Negative) Urine Blood (Negative) Urine Nitrite (Negative) Urine Bilirubin (Negative) Urine Urobilinogen (<2.0) mg/dL Ur Leukocyte Esterase (Negative) Urine RBC (0-5) /hpf Urine WBC (0-5) /hpf Ur Squamous Epith Cells (0-4) /hpf Urine Mucus (None) /hpf 05/20/23 05/20/23 Range/Units 17:13 17:18 WBC (3.8-10.6) k/uL RBC (4.30-5.90) m/uL Hgb (13.0-17.5) gm/dL Hct (39.0-53.0) % MCV (80.0-100.0) fL MCH (25.0-35.0) pg MCHC (31.0-37.0) g/dL RDW (11.5-15.5) % Plt Count (150-450) k/uL MPV Neutrophils % % Lymphocytes % % Monocytes % % Eosinophils % % Basophils % % Neutrophils # (1.3-7.7) k/uL Lymphocytes # (1.0-4.8) k/uL Monocytes # (0-1.0) k/uL Eosinophils # (0-0.7) k/uL Basophils # (0-0.2) k/uL PT 11.0 (10.0-12.5) sec INR 1.0 (<1.2) APTT 23.6 (22.0-30.0) sec Sodium (137-145) mmol/L Potassium (3.5-5.1) mmol/L Chloride (98-107) mmol/L Carbon Dioxide (22-30) mmol/L Anion Gap mmol/L BUN (9-20) mg/dL Creatinine (0.66-1.25) mg/dL Est GFR (CKD-EPI)AfAm (>60 ml/min/1.73 sqM) Est GFR (CKD-EPI)NonAf (>60 ml/min/1.73 sqM) Glucose (74-99) mg/dL Calcium (8.4-10.2) mg/dL Magnesium (1.6-2.3) mg/dL Total Bilirubin (0.2-1.3) mg/dL AST (17-59) U/L ALT (4-49) U/L Alkaline Phosphatase (38-126) U/L Troponin I (0.000-0.034) ng/mL Total Protein (6.3-8.2) g/dL Albumin (3.5-5.0) g/dL Urine Color Yellow Urine Appearance Cloudy (Clear) Urine pH 6.5 (5.0-8.0) Ur Specific [place] 1.028 (1.001-1.035) Urine Protein Trace H (Negative) Urine Glucose (UA) Negative (Negative) Urine Ketones Negative (Negative) Urine Blood Trace H (Negative) Urine Nitrite Negative (Negative) Urine Bilirubin Negative (Negative) Urine Urobilinogen <2.0 (<2.0) mg/dL Ur Leukocyte Esterase Negative (Negative) Urine RBC 8 H (0-5) /hpf Urine WBC 7 H (0-5) /hpf Ur Squamous Epith Cells 1 (0-4) /hpf Urine Mucus Many H (None) /hpf Disposition Clinical Impression: Fall, Head injury Disposition: HOME SELF-CARE Condition: Good Instructions (If sedation given, give patient instructions): Fall Prevention (ED) Additional Instructions: CT shows no acute intracranial process. Patient should follow-up with primary care provider. Return to the emergency department if he experiences new, concerning, or worsening symptoms Is patient prescribed a controlled substance at d/c from ED?: No Referrals: Carl Meyers MD [Primary Care Provider] - 1-2 days
[2023-05-20 20:11] VITALS: BP 166/92; PULSE 75; RESP 18; TEMP 98.1
== END 2023-05-20 20:19 | disposition home or self-care (01) ==
LOC: EC 16:54
DX: S09.90XA Unspecified injury of head, initial encounter (principal); I25.10 Atherosclerotic heart disease of native coronary artery without angina pectoris; Z79.82 Long term (current) use of aspirin; W01.0XXA Fall on same level from slipping, tripping and stumbling without subsequent striking against object, initial encounter
CPT/HCPCS: 36415; 70450; 71046; 72125; 80053; 81001; 83735; 84484; 85025; 85610; 85730; 93005; 99285

== ENCOUNTER 2023-07-08 17:00 | Emergency (ER) | payer MEDICARE, OTHER ==
[2023-07-08 17:12] VITALS: TEMP 98.1
--- NOTE | 2023-07-08 17:18 | ED ---
Fall HPI - General Chief Complaint: Fall Stated Complaint: Fall Time Seen by Provider: 07/08/23 17:02 Source: EMS, RN notes reviewed, old records reviewed Mode of arrival: EMS Limitations: no limitations - History of Present Illness Initial Comments: This is a 72-year-old male after fall from extended-care facility patient is a poor story and unable to provide history fall with hitting head, unsure of events surrounding the fall patient was on the ground but brought to the emergency department for evaluation MD Complaint: fall -: hour(s) Fall From: standing When Fall Occurred: unsure Fall Witnessed: yes, by living facility staff Place Fall Occurred: home Loss of Consciousness: none Prolonged Down Time?: no Symptoms Prior to Fall: none Location: head Severity: moderate Severity scale (1-10): 2 Context: tripped/slipped Associated Symptoms: denies - Related Data Home Medications Medication Instructions Recorded Confirmed Aspirin EC [Ecotrin Low Dose] 81 mg PO DAILY 04/09/23 07/08/23 Acetaminophen Tab [Tylenol] 325 mg PO Q4H PRN 07/08/23 07/08/23 Calcium Carbonate [Tums] 500 mg PO Q4HR PRN 07/08/23 07/08/23 Carbidopa-Levodopa ER 25-100Mg 1 tab PO TID@0900,1300,2100 07/08/23 07/08/23 [Sinemet CR 25-100 mg] Lactobacillus Acidophilus 1 cap PO BID 07/08/23 07/08/23 [Acidophilus Probiotic] Lactose-Reduced Food [Ensure Plus] 1 can PO BID@0900,1700 07/08/23 07/08/23 Tamsulosin [Flomax] 0.4 mg PO DAILY 07/08/23 07/08/23 Previous Rx's Medication Instructions Recorded Cyanocobalamin [Vitamin B-12] 1,000 mcg PO DAILY tab 04/11/23 Famotidine [Pepcid] 20 mg PO BID tab 04/11/23 Lactulose [Cephulac] 20 gm PO DAILY PRN ml 04/11/23 Allergies Allergy/AdvReac Type Severity Reaction Status Date / Time No Known Allergies Allergy Verified 07/08/23 19:34 Review of Systems ROS Statement: Those systems with pertinent positive or pertinent negative responses have been documented in the HPI. ROS Other: All systems not noted in ROS Statement are negative. Past Medical History Past Medical History: Coronary Artery Disease (CAD), Chest Pain / Angina, Prostate Disorder Additional Past Medical History / Comment(s): BPH, chronic low back pain, recent root canal-was on ABX. History of Any Multi-Drug Resistant Organisms: None Reported Past Surgical History: Heart Catheterization Additional Past Surgical History / Comment(s): 2013 Cardiac cath-treated medically, wisdom teeth extraction, VASECTOMY Past Anesthesia/Blood Transfusion Reactions: No Reported Reaction Past Psychological History: No Psychological Hx Reported Smoking Status: Never smoker Past Alcohol Use History: Rare Past Drug Use History: None Reported - Past Family History Father Family Medical History: Coronary Artery Disease (CAD) Additional Family Medical History / Comment(s): Father at 88 yrs of age. He had heart problems late in life. Mother Family Medical History: No Reported History Additional Family Medical History / Comment(s): Mother was healthy. She at the age of 94 yrs. General Exam General appearance: alert, in no apparent distress Head exam: Present: atraumatic, normocephalic, normal inspection Eye exam: Present: normal appearance, PERRL, EOMI. Absent: scleral icterus, conjunctival injection, periorbital swelling ENT exam: Present: normal exam, mucous membranes moist Neck exam: Present: normal inspection. Absent: tenderness, meningismus, lymphadenopathy Respiratory exam: Present: normal lung sounds bilaterally. Absent: respiratory distress, wheezes, rales, rhonchi, stridor Cardiovascular Exam: Present: regular rate, normal rhythm, normal heart sounds. Absent: systolic murmur, diastolic murmur, rubs, gallop, clicks GI/Abdominal exam: Present: soft, normal bowel sounds. Absent: distended, tenderness, guarding, rebound, rigid Extremities exam: Present: normal inspection, full ROM, normal capillary refill. Absent: tenderness, pedal edema, joint swelling, calf tenderness Back exam: Present: normal inspection Neurological exam: Present: alert, oriented X3, CN II-XII intact Psychiatric exam: Present: normal affect, normal mood Skin exam: Present: warm, dry, intact, normal color. Absent: rash Course Vital Signs 07/08/23 07/08/23 07/08/23 17:01 19:16 20:57 Temperature 98.1 F Pulse Rate 91 88 83 Respiratory 14 18 Rate Blood Pressure 140/81 146/83 145/85 O2 Sat by Pulse 96 98 97 Oximetry - Reevaluation(s) Reevaluation #1: Medical record is reviewed Reevaluation #2: Patient symptoms are persistent Reevaluation #3: Patient point of results and questions answered Reevaluation #4: Was pt. sent in by a medical professional or institution (TREY Beck, [employer], urgent care, hospital, or alf...) When possible be specific @ -no Did you speak to anyone other than the patient for history (EMS, parent, family, police, friend...)? What history was obtained from this source @ -no Did you review nursing and triage notes (agree or disagree)? Why? @ -agree Are old charts reviewed (outside hosp., previous admission, EMS record, old EKG, old radiological studies, urgent care reports/EKG's, alf records)? Report findings @ -yes Differential Diagnosis (chest pain, altered mental status, abdominal pain women, abdominal pain men, vaginal bleeding, weakness, fever, dyspnea, syncope, headache, dizziness, GI bleed, back pain, seizure, CVA, palpatations, mental health, musculoskeletal)? @ -prior EKG interpreted by me (3pts min.). @ -no X-rays interpreted by me (1pt min.). @ -yes negative for acute disease CT interpreted by me (1pt min.). @ -yes negative for acute disease U/S interpreted by me (1pt. min.). @ -no What testing was considered but not performed or refused? (CT, X-rays, U/S, labs)? Why? @ -none What meds were considered but not given or refused? Why? @ -none Did you discuss the management of the patient with other professionals (professionals i.e. TREY Beck, [employer], lab, RT, psych nurse, social scientist, fitness and wellness director, teacher, chief risk officer, dependency case manager)? Give summary @ -no Was smoking cessation discussed for >3mins.? @ -no Was critical care preformed (if so, how long)? @ -no Were there social determinants of health that impacted care today? How? (Homelessness, low income, unemployed, alcoholism, drug addiction, transportation, low edu. Level, literacy, decrease access to med. care, custodial, rehab)? @ -none Was there de-escalation of care discussed even if they declined (Discuss DNR or withdrawal of care, Hospice)? DNR status @ -no What co-morbidities impacted this encounter? (DM, HTN, Smoking, COPD, CAD, Cancer, CVA, ARF, Chemo, Hep., AIDS, mental health diagnosis, sleep apnea, morbid obesity)? @ -none Was patient admitted / discharged? Hospital course, mention meds given and route, prescriptions, significant lab abnormalities, going to OR and other pertinent info. @ - 72 male to the emergency department for evaluation of weakness resulting in a fall no traumatic injury. Patient otherwise evaluation is no acute findings and can be discharged home Discharge Undiagnosed new problem with uncertain prognosis? @ -no Drug Therapy requiring intensive monitoring for toxicity (Heparin, Nitro, Insulin, Cardizem)? @ -no Were any procedures done? @ -no Diagnosis/symptom? @ -Fall, weakness Acute, or Chronic, or Acute on Chronic? @ -Acute Uncomplicated (without systemic symptoms) or Complicated (systemic symptoms)? @ -Complicated Side effects of treatment? @ -no Exacerbation, Progression, or Severe Exacerbation? @ -exacerbation Poses a threat to life or bodily function? How? (Chest pain, [place], [place], pneumonia, PE, COPD, DKA, ARF, appy, cholecystitis, CVA, Diverticulitis, Homicidal, Suicidal, threat to staff... and all critical care pts) @ -yes with extremes of age Medical Decision Making - Medical Decision Making 72 male to the emergency department for evaluation of weakness resulting in a fall no traumatic injury. Patient otherwise evaluation is no acute findings and can be discharged home - Radiology Data Radiology results: report reviewed (CT brain C-spine chest and pelvis x-ray are negative for acute disease), image reviewed Disposition Clinical Impression: Fall, Generalized weakness Disposition: HOME SELF-CARE Condition: Good Instructions (If sedation given, give patient instructions): Fall Prevention for Older Adults (ED) Is patient prescribed a controlled substance at d/c from ED?: No Referrals: Carl Meyers MD [Primary Care Provider] - 1-2 days Time of Disposition: 19:40
--- NOTE | 2023-07-08 18:33 | CT ---
EXAMINATION TYPE: CT brain cspine wo con CT DLP: 1407 mGycm, Automated exposure control for dose reduction was used. DATE OF EXAM: 07/08/2023 6:08 PM COMPARISON: None. CLINICAL INDICATION:Male, 72 years old with history of fall; AMS TECHNIQUE: Brain: Multiple axial CT images of the brain were obtained without IV contrast. Cspine: Axial CT images from the skull base to the inferior aspect of T2 we obtained without intraven ous contrast. Coronal and sagittal reformatted images were also reviewed. FINDINGS: Some limitation by streak artifacts. Brain: Extra-axial spaces: No abnormal extra-axial fluid collections. Ventricular system: Appear dilated in proportion to the degree of cerebral atrophy. Cerebral parenchyma: No increased attenuation to suggest acute intraparenchymal hemorrhage. The gra y-white matter interface appears maintained. Mild generalized brain atrophy. Scattered hypoattenuat ing areas are seen within the cerebral white matter, nonspecific but most often seen with chronic jose l rovascular ischemic changes; mild in degree. Cerebellum: No acute abnormality. Mass effect: No evidence of mass effect or midline shift. Intracranial vasculature: Unremarkable Soft tissues: Unremarkable Visualized orbits: Orbital contents appear grossly intact. Calvarium/osseous structures: No evidence of calvarial fracture. Paranasal sinuses and mastoid air cells: Mild mucosal thickening left maxillary sinus. No paranasal s inus fluid levels are seen. MRI is more sensitive for detecting acute processes such as infarct, and may be considered if clinica lly warranted. Cervical spine: Exam limited by patient position. Fracture: Craniocervical junction appears to be maintained. No acute fractures identified. Osseous structures, spinal canal/neural foramina: Mild multilevel degenerative disc disease. There is reversal of the normal cervical lordosis which can be due to degenerative changes, pain, positioning , muscular spasm. Osseous spinal canal and neural foramina appear patent. Vertebral alignment: No traumatic malalignment. Neck soft tissues: No acute finding.. Mild calcifications noted involving the cervical carotid arteri es. Other: Lung apices show no acute infiltrate or pneumothorax. IMPRESSION: CT head: 1. No acute intracranial CT abnormality. 2. Mild atrophy and chronic microvascular ischemic changes. CT cervical spine: 1. No evidence of cervical spine fracture or traumatic malalignment. 2. Mild cervical spondylosis with mild reversal of the normal cervical lordosis.
--- NOTE | 2023-07-08 18:34 | XR ---
EXAMINATION TYPE: XR pelvis AP view DATE OF EXAM: 07/08/2023 6:05 PM CLINICAL INDICATION:Male, 72 years old with history of fall; [facility] COMPARISON: None TECHNIQUE: The pelvis was examined in a single projection. FINDINGS: There is no evidence of fracture or dislocation. Mild degenerative changes of the lower lum bar spine and hips. There is no soft tissue abnormality. Phleboliths are seen in the pelvis. No defi nite pathologic calcifications. IMPRESSION: No acute fracture or dislocation identified, on this single view of the pelvis.
--- NOTE | 2023-07-08 18:37 | XR ---
EXAMINATION TYPE: XR chest 1V DATE OF EXAM: 07/08/2023 6:05 PM CLINICAL INDICATION:Male, 72 years old with history of fall; [facility] COMPARISON: 05/20/2023 TECHNIQUE: XR chest 1V Frontal view of the chest. FINDINGS: Lines/Tubes/Devices: None. Extrinsic structures over the chest. Heart/mediastinum: Cardiomediastinal silhouette is well defined. Heart size is normal. The aorta ap pears tortuous, a finding usually associated with either atherosclerosis or systemic hypertension. A eriberto is partially calcified. Pulmonary vascularity: Not increased, Lungs/Pleura: There is no evidence of pleural effusion, focal consolidation, or pneumothorax. Minima l right basilar subsegmental atelectasis. Musculoskeletal: No acute osseous abnormality demonstrated in the limits of the exam. Mild asymmetri c elevation of the right hemidiaphragm likely related to eventration, similar to prior. Mild degenera tive changes of the thoracic spine. Other findings: None. IMPRESSION: No acute cardiopulmonary abnormality.
[2023-07-08 21:00] VITALS: BP 145/85; PULSE 83; RESP 18
== END 2023-07-08 21:12 | disposition home or self-care (01) ==
LOC: EC 17:00
DX: R53.1 Weakness (principal); I25.10 Atherosclerotic heart disease of native coronary artery without angina pectoris; Z79.82 Long term (current) use of aspirin; Z79.899 Other long term (current) drug therapy; W01.0XXA Fall on same level from slipping, tripping and stumbling without subsequent striking against object, initial encounter; Y92.009 Unspecified place in unspecified non-institutional (private) residence as the place of occurrence of the external cause
CPT/HCPCS: 70450; 71045; 72125; 72170; 99285

== ENCOUNTER 2023-08-26 09:12 | Inpatient (IN) | payer MEDICARE, OTHER ==
[2023-08-26] MEDS: ACETAMINOPHEN IV (For NPO) 1,000 MG in EMPTY BAG 1 BAG IVPB STA (10:11)
[2023-08-26] MEDS: IBUPROFEN IV 600 MG in SODIUM CHLORIDE 0.9% 250 ML IV STA (10:12)
[2023-08-26 10:14] LABS: Basophils % (A) 0 %; Eosinophils % (A) 0 %; HCT 40.5 % (39.0-53.0); HGB 12.8 gm/dL (13.0-17.5); Lymphocytes # (A) 0.9 k/uL (1.0-4.8); Lymphocytes % (A) 9 %; MCH 28.3 pg (25.0-35.0); MCHC 31.6 g/dL (31.0-37.0); MCV 89.5 fL (80.0-100.0); Mean Platelet Volume 7.8; Monocytes # (A) 0.6 k/uL (0-1.0); Monocytes % (A) 6 %; Neutrophils # (A) 8.3 k/uL (1.3-7.7); Neutrophils % (A) 83 %; Platelet Count 231 k/uL (150-450); RBC 4.53 m/uL (4.30-5.90); RDW 14.1 % (11.5-15.5); WBC 10.1 k/uL (3.8-10.6)
[2023-08-26] MEDS: SODIUM CHLORIDE 0.9% 500 ML 500 ML IV SCH (10:25)
[2023-08-26 10:29] LABS: INR 1.2 (<1.2); Prothrombin Time 13.1 sec (10.0-12.5)
[2023-08-26 10:31] LABS: ALT 27 U/L (4-49); AST 53 U/L (17-59); African American GFR (CKD) 46 (>60 ml/min/1.73 sqM); Albumin 3.1 g/dL (3.5-5.0); Alkaline Phosphatase 78 U/L (38-126); Anion Gap 10 mmol/L; Blood Urea Nitrogen 76 mg/dL (9-20); Calcium 8.4 mg/dL (8.4-10.2); Carbon Dioxide 22 mmol/L (22-30); Chloride 125 mmol/L (98-107); Glucose 187 mg/dL (74-99); Non-African American GFR(CKD) 40 (>60 ml/min/1.73 sqM); Sodium 157 mmol/L (137-145); Total Bilirubin 0.5 mg/dL (0.2-1.3); Total Protein 6.2 g/dL (6.3-8.2)
--- NOTE | 2023-08-26 10:31 | XR ---
EXAMINATION TYPE: XR chest 1V portable DATE OF EXAM: 08/26/2023 HISTORY: Shortness of breath. COMPARISON: 07/08/2023 TECHNIQUE: Single view of the chest is submitted. FINDINGS: Demonstrated are scattered senescent parenchymal change. There is no evidence for focal infiltrate. The heart is stable. Hilar and mediastinal structures are within normal limits. Degenerative changes are seen of the dorsal spine. IMPRESSION: 1. Chronic changes without evidence for acute pulmonary disease.
[2023-08-26 10:36] LABS: Partial Thromboplastin Time 16.9 sec (22.0-30.0)
[2023-08-26 11:46] LABS: Appearance,Urine Cloudy (Clear); Bacteria,Urine Rare /hpf; Bilirubin,Urine Negative (Negative); Blood,Urine Moderate (Negative); Color,Urine Yellow; Glucose,Urine (UA) Negative (Negative); Ketones,Urine Negative (Negative); Leukocyte Esterase,Urine Large (Negative); Mucus,Urine Moderate /hpf; Nitrite,Urine Negative (Negative); Protein,Urine Trace (Negative); RBC,Urine 32 /hpf (0-5); Urobilinogen,Urine <2.0 mg/dL (<2.0); WBC,Urine 127 /hpf (0-5)
--- NOTE | 2023-08-26 12:02 | ED ---
General Adult HPI - General Chief complaint: Altered Mental Status Stated complaint: AMS Time Seen by Provider: 08/26/23 09:20 Source: patient, EMS, RN notes reviewed, old records reviewed Mode of arrival: EMS Limitations: language barrier, altered mental status, physical limitation - History of Present Illness Initial comments: This is a 72-year-old male who presents [facility] the emergency department from [facility] they stated that normally is alert and oriented x 0 and today he continues Boutt he normally sits up and Boutt on his own he is sitting up and they thought that was acting a little differently so they sent the patient into the emergency department. They deny any trauma. Patient does have a Bejarano catheter in place. Patient has had no vomiting or diarrhea. Patient has had no reported fevers. And there is no other history available because no one came with the patient. All history is from EMS - Related Data Home Medications Medication Instructions Recorded Confirmed Aspirin EC [Ecotrin Low Dose] 81 mg PO DAILY 04/09/23 07/08/23 Acetaminophen Tab [Tylenol] 325 mg PO Q4H PRN 07/08/23 07/08/23 Calcium Carbonate [Tums] 500 mg PO Q4HR PRN 07/08/23 07/08/23 Carbidopa-Levodopa ER 25-100Mg 1 tab PO TID@0900,1300,2100 07/08/23 07/08/23 [Sinemet CR 25-100 mg] Lactobacillus Acidophilus 1 cap PO BID 07/08/23 07/08/23 [Acidophilus Probiotic] Lactose-Reduced Food [Ensure Plus] 1 can PO BID@0900,1700 07/08/23 07/08/23 Tamsulosin [Flomax] 0.4 mg PO DAILY 07/08/23 07/08/23 Previous Rx's Medication Instructions Recorded Cyanocobalamin [Vitamin B-12] 1,000 mcg PO DAILY tab 04/11/23 Famotidine [Pepcid] 20 mg PO BID tab 04/11/23 Lactulose [Cephulac] 20 gm PO DAILY PRN ml 04/11/23 Allergies Allergy/AdvReac Type Severity Reaction Status Date / Time No Known Allergies Allergy Verified 07/08/23 19:34 Review of Systems ROS Statement: Those systems with pertinent positive or pertinent negative responses have been documented in the HPI. ROS Other: All systems not noted in ROS Statement are negative. Past Medical History Past Medical History: Coronary Artery Disease (CAD), Chest Pain / Angina, Prostate Disorder Additional Past Medical History / Comment(s): BPH, chronic low back pain, recent root canal-was on ABX. History of Any Multi-Drug Resistant Organisms: None Reported Past Surgical History: Heart Catheterization Additional Past Surgical History / Comment(s): 2013 Cardiac cath-treated medically, wisdom teeth extraction, VASECTOMY Past Anesthesia/Blood Transfusion Reactions: No Reported Reaction Past Psychological History: No Psychological Hx Reported Smoking Status: Never smoker Past Alcohol Use History: Rare Past Drug Use History: None Reported - Past Family History Father Family Medical History: Coronary Artery Disease (CAD) Additional Family Medical History / Comment(s): Father at 88 yrs of age. He had heart problems late in life. Mother Family Medical History: No Reported History Additional Family Medical History / Comment(s): Mother was healthy. She at the age of 94 yrs. General Exam - General Exam Comments Initial Comments: GENERAL: Patient is well-developed and well-nourished. Patient is nontoxic and well-hyd rated and is in no acute distress. ENT: Neck is soft and supple. No significant lymphadenopathy is noted. Oropharynx is clear. Moist mucous membranes. Neck has full range of motion without elicit ing any pain. EYES: The sclera were anicteric and conjunctiva were pink and moist. Extraocular m ovements were intact and pupils were equal round and reactive to light. Eyelids were unremarkable. PULMONARY: Unlabored respirations. Good breath sounds bilaterally. No audible rales rhonchi or wheezing was noted. CARDIOVASCULAR: There is a regular rate and rhythm without any murmurs gallops or rubs. ABDOMEN: Soft and nontender with normal bowel sounds. SKIN: Skin is clear with no lesions or rashes and otherwise unremarkable. NEUROLOGIC: Patient is alert and oriented. MUSCULOSKELETAL: Patient moves all 4 extremities but not on command LYMPHATICS: No significant lymphadenopathy is noted PSYCHIATRIC: Unable to assess Limitations: language barrier, altered mental status, physical limitation Course Vital Signs 08/26/23 08/26/23 08/26/23 09:14 10:52 10:54 Temperature 101.6 F H 98.1 F Pulse Rate 90 92 90 Respiratory 16 20 22 Rate Blood Pressure 111/68 133/106 154/84 O2 Sat by Pulse 95 97 95 Oximetry 08/26/23 08/26/23 08/26/23 11:00 11:30 12:00 Temperature Pulse Rate 90 90 86 Respiratory 24 18 18 Rate Blood Pressure 154/84 139/79 146/94 O2 Sat by Pulse 96 97 96 Oximetry 08/26/23 12:30 Temperature Pulse Rate 86 Respiratory 16 Rate Blood Pressure 125/92 O2 Sat by Pulse 95 Oximetry Medical Decision Making - Medical Decision Making EKG is interpreted by myself. EKG shows sinus rhythm at 91 bpm MO was 128 QRS 79 QT interval 349 QTc is 398. Patient's EKG shows no ST segment ovation or depression. Was pt. sent in by a medical professional or institution (, PA, PLANNING ASSOCIATE, urgent care, hospital, or [facility]...) When possible be specific @ -[facility] sent the patient in Did you speak to anyone other than the patient for history (EMS, parent, family, police, friend...)? What history was obtained from this source @ -EMS gave history Did you review nursing and triage notes (agree or disagree)? Why? @ -I reviewed and agree with nursing and triage notes Were old charts reviewed (outside hosp., previous admission, EMS record, old EKG, old radiological studies, urgent care reports/EKG's, [facility] records)? Report findings @ -I reviewed prior lab work prior charts on this patient Differential Diagnosis (chest pain, altered mental status, abdominal pain women, abdominal pain men, vaginal bleeding, weakness, fever, dyspnea, syncope, headache, dizziness, GI bleed, back pain, seizure, CVA, palpatations, mental health, musculoskeletal)? @ -Differential Altered Mental Status: Hypoglycemia, DKA, hypercapnia, ETOH, overdose, CO poisoning, trauma, myxedema coma, HTN encephalopathy, infection, encephalitis, psychosis, intercranial hemorrhage, hepatic encephalopathy, meningitis, CVA, this is not meant to be an all-inclusive list EKG interpreted by me (3pts min.). @ -As above X-rays interpreted by me (1pt min.). @ -Chest x-ray showed no acute normality CT interpreted by me (1pt min.). @ -None done U/S interpreted by me (1pt. min.). @ -None done What testing was considered but not performed or refused? (CT, X-rays, U/S, labs)? Why? @ -None What meds were considered but not given or refused? Why? @ -None Did you discuss the management of the patient with other professionals (professionals i.e. , PA, PLANNING ASSOCIATE, lab, RT, psych nurse, licensed social worker, obstetrics and gynecology professor, teacher, chief information security officer, outpatient case manager)? Give summary @ -I spoke with the [facility] hospital stay agreed admit the patient but the patient reported getting worse Was smoking cessation discussed for >3mins.? @ -No Was critical care preformed (if so, how long)? @ -No Were there social determinants of health that impacted care today? How? (Homelessness, low income, unemployed, alcoholism, drug addiction, transportation, low edu. Level, literacy, decrease access to med. care, [facility], rehab)? @ -No Was there de-escalation of care discussed even if they declined (Discuss DNR or withdrawal of care, Hospice)? DNR status @ -No What co-morbidities impacted this encounter? (DM, HTN, Smoking, COPD, CAD, Cancer, CVA, ARF, Chemo, Hep., AIDS, mental health diagnosis, sleep apnea, morbid obesity)? @ -None Was patient admitted / discharged? Hospital course, mention meds given and route, prescriptions, significant lab abnormalities, going to OR and other pertinent info. @ -Patient remained responsive to pain only but we have no one to tell us what his baseline is other than alert and oriented x 0. Patient did have a urinary tract infection was started antibiotics I called [facility] hospitalist they agreed to admit the patient admitted the patient was admitting orders and continued antibiotics on the floor Undiagnosed new problem with uncertain prognosis? @ -No Drug Therapy requiring intensive monitoring for toxicity (Heparin, Nitro, Insulin, Cardizem)? @ -No Were any procedures done? @ -No Diagnosis/symptom? @ -Altered mental status Acute, or Chronic, or Acute on Chronic? @ -Acute Uncomplicated (without systemic symptoms) or Complicated (systemic symptoms)? @ -Complicated Side effects of treatment? @ -No Exacerbation, Progression, or Severe Exacerbation? @ -No Poses a threat to life or bodily function? How? (Chest pain, [place], [place], pneumonia, PE, COPD, DKA, ARF, appy, cholecystitis, CVA, Diverticulitis, Homicidal, Suicidal, threat to staff... and all critical care pts) @ -Yes this can lead to sepsis and endorgan dysfunction Diagnosis/symptom? @ -Urinary tract infection Acute, or Chronic, or Acute on Chronic? @ -Acute Uncomplicated (without systemic symptoms) or Complicated (systemic symptoms)? @ -Complicated Side effects of treatment? @ -None Exacerbation, Progression, or Severe Exacerbation] @ -No Poses a threat to life or bodily function? @ -Yes this can lead to sepsis and endorgan dysfunction - Lab Data Result diagrams: 08/26/23 09:43 08/26/23 09:43 Lab Results 08/26/23 08/26/23 08/26/23 Range/Units 09:43 09:43 09:43 WBC 10.1 (3.8-10.6) k/uL RBC 4.53 (4.30-5.90) m/uL Hgb 12.8 L (13.0-17.5) gm/dL Hct 40.5 (39.0-53.0) % MCV 89.5 (80.0-100.0) fL MCH 28.3 (25.0-35.0) pg MCHC 31.6 (31.0-37.0) g/dL RDW 14.1 (11.5-15.5) % Plt Count 231 (150-450) k/uL MPV 7.8 Neutrophils % 83 % Lymphocytes % 9 % Monocytes % 6 % Eosinophils % 0 % Basophils % 0 % Neutrophils # 8.3 H (1.3-7.7) k/uL Lymphocytes # 0.9 L (1.0-4.8) k/uL Monocytes # 0.6 (0-1.0) k/uL Eosinophils # 0.0 (0-0.7) k/uL Basophils # 0.0 (0-0.2) k/uL PT 13.1 H (10.0-12.5) sec INR 1.2 H (<1.2) APTT 16.9 L (22.0-30.0) sec Sodium (137-145) mmol/L Potassium (3.5-5.1) mmol/L Chloride (98-107) mmol/L Carbon Dioxide (22-30) mmol/L Anion Gap mmol/L BUN (9-20) mg/dL Creatinine (0.66-1.25) mg/dL Est GFR (CKD-EPI)AfAm (>60 ml/min/1.73 sqM) Est GFR (CKD-EPI)NonAf (>60 ml/min/1.73 sqM) Glucose (74-99) mg/dL Plasma Lactic Acid Piter (0.7-2.0) mmol/L Calcium (8.4-10.2) mg/dL Total Bilirubin (0.2-1.3) mg/dL AST (17-59) U/L ALT (4-49) U/L Alkaline Phosphatase (38-126) U/L Total Protein (6.3-8.2) g/dL Albumin (3.5-5.0) g/dL Urine Color Yellow Urine Appearance Cloudy (Clear) Urine pH 5.0 (5.0-8.0) Ur Specific [place] 1.020 (1.001-1.035) Urine Protein Trace H (Negative) Urine Glucose (UA) Negative (Negative) Urine Ketones Negative (Negative) Urine Blood Moderate H (Negative) Urine Nitrite Negative (Negative) Urine Bilirubin Negative (Negative) Urine Urobilinogen <2.0 (<2.0) mg/dL Ur Leukocyte Esterase Large H (Negative) Urine RBC 32 H (0-5) /hpf Urine WBC 127 H (0-5) /hpf Urine WBC Clumps Few H (None) /hpf Urine Bacteria Rare H (None) /hpf Urine Mucus Moderate H (None) /hpf Influenza Type A (PCR) (Not Detectd) Influenza Type B (PCR) (Not Detectd) RSV (PCR) (Not Detectd) SARS-CoV-2 (PCR) (Not Detectd) 08/26/23 08/26/23 08/26/23 Range/Units 09:43 09:43 09:43 WBC (3.8-10.6) k/uL RBC (4.30-5.90) m/uL Hgb (13.0-17.5) gm/dL Hct (39.0-53.0) % MCV (80.0-100.0) fL MCH (25.0-35.0) pg MCHC (31.0-37.0) g/dL RDW (11.5-15.5) % Plt Count (150-450) k/uL MPV Neutrophils % % Lymphocytes % % Monocytes % % Eosinophils % % Basophils % % Neutrophils # (1.3-7.7) k/uL Lymphocytes # (1.0-4.8) k/uL Monocytes # (0-1.0) k/uL Eosinophils # (0-0.7) k/uL Basophils # (0-0.2) k/uL PT (10.0-12.5) sec INR (<1.2) APTT (22.0-30.0) sec Sodium 157 H (137-145) mmol/L Potassium 4.0 (3.5-5.1) mmol/L Chloride 125 H (98-107) mmol/L Carbon Dioxide 22 (22-30) mmol/L Anion Gap 10 mmol/L BUN 76 H (9-20) mg/dL Creatinine 1.66 H (0.66-1.25) mg/dL Est GFR (CKD-EPI)AfAm 46 (>60 ml/min/1.73 sqM) Est GFR (CKD-EPI)NonAf 40 (>60 ml/min/1.73 sqM) Glucose 187 H (74-99) mg/dL Plasma Lactic Acid Piter 1.2 (0.7-2.0) mmol/L Calcium 8.4 (8.4-10.2) mg/dL Total Bilirubin 0.5 (0.2-1.3) mg/dL AST 53 (17-59) U/L ALT 27 (4-49) U/L Alkaline Phosphatase 78 (38-126) U/L Total Protein 6.2 L (6.3-8.2) g/dL Albumin 3.1 L (3.5-5.0) g/dL Urine Color Urine Appearance (Clear) Urine pH (5.0-8.0) Ur Specific [place] (1.001-1.035) Urine Protein (Negative) Urine Glucose (UA) (Negative) Urine Ketones (Negative) Urine Blood (Negative) Urine Nitrite (Negative) Urine Bilirubin (Negative) Urine Urobilinogen (<2.0) mg/dL Ur Leukocyte Esterase (Negative) Urine RBC (0-5) /hpf Urine WBC (0-5) /hpf Urine WBC Clumps (None) /hpf Urine Bacteria (None) /hpf Urine Mucus (None) /hpf Influenza Type A (PCR) Not Detected (Not Detectd) Influenza Type B (PCR) Not Detected (Not Detectd) RSV (PCR) Not Detected (Not Detectd) SARS-CoV-2 (PCR) Not Detected (Not Detectd) Disposition Clinical Impression: Altered mental status, Urinary tract infection, Hypernatremia, Renal insufficiency Disposition: ADMITTED IP TO THIS HOSP Time of Disposition: 12:19
--- NOTE | 2023-08-26 12:39 | CT ---
EXAMINATION TYPE: CT brain wo con DATE OF EXAM: 08/26/2023 COMPARISON: 07/08/2023 HISTORY: altered mental status CT DLP: 1212.[address] of the brain was performed. The ventricles, basal cisterns and sulci overlying the cerebral convexities demonstrate mild enlargem ent. There is no evidence for intracranial hemorrhage or sulcal effacement. There is decreased attenuation about the periventricular white matter and deep white matter of both c erebral hemispheres, compatible with chronic small vessel ischemia. Differential diagnosis does inclu de demyelination. No mass effects are seen.No midline shift. Osseous calvarium is intact. If symptoms persist consider MRI. IMPRESSION: 1. Age related atrophic and chronic small vessel ischemic change without acute intracranial process s een at this time.
[2023-08-26] MEDS: cefTRIAXone IN SWFI 1,000 MG/10 ML SYRINGE IVP STA (12:45)
[2023-08-26] MEDS: SODIUM CHLORIDE 0.9% 1,000 ML IV ONE (12:46)
--- NOTE | 2023-08-26 17:12 | P.HPIM ---
History of Present Illness H&P Date: 08/26/23 Chief Complaint: Altered mental status 72-year-old male who presents to the emergency department from residential they stated that normally is alert and oriented x 0 and today he continues Boutt he normally sits up and Boutt on his own he is sitting up and they thought that was acting a little differently so they sent the patient into the emergency department. They deny any trauma. Patient does have a Bejarano catheter in place. Patient has had no vomiting or diarrhea. Patient has had no reported fevers. And there is no other history available because no one came with the patient. All history is from EMS Blood work completed in ED reveals a WBC of 10.1, hemoglobin of 12.8 and platelet count of 231, sodium 157, potassium 4.0, BUNs/creatinine of 76/1.66 and blood glucose of 187 UA is positive for blood, leukocyte esterase, WBCs and bacteria Review of Systems ROS unobtainable: due to mental status Past Medical History Past Medical History: Coronary Artery Disease (CAD), Chest Pain / Angina, Prostate Disorder Additional Past Medical History / Comment(s): BPH, chronic low back pain, recent root canal-was on ABX. History of Any Multi-Drug Resistant Organisms: None Reported Past Surgical History: Heart Catheterization Additional Past Surgical History / Comment(s): 2013 Cardiac cath-treated medically, wisdom teeth extraction, VASECTOMY Past Anesthesia/Blood Transfusion Reactions: No Reported Reaction Past Psychological History: No Psychological Hx Reported Smoking Status: Never smoker Past Alcohol Use History: Rare Past Drug Use History: None Reported - Past Family History Father Family Medical History: Coronary Artery Disease (CAD) Additional Family Medical History / Comment(s): Father at 88 yrs of age. He had heart problems late in life. Mother Family Medical History: No Reported History Additional Family Medical History / Comment(s): Mother was healthy. She at the age of 94 yrs. Medications and Allergies Home Medications Medication Instructions Recorded Confirmed Type Aspirin EC [Ecotrin Low Dose] 81 mg PO DAILY@0900 04/09/23 08/26/23 History Lactulose [Cephulac] 20 gm PO DAILY PRN ml 04/11/23 08/26/23 Rx Acetaminophen Tab [Tylenol] 325 mg PO Q4H PRN 07/08/23 08/26/23 History Calcium Carbonate [Tums] 500 mg PO Q4HR PRN 07/08/23 08/26/23 History Carbidopa-Levodopa ER 25-100Mg 1 tab PO TID@0900,1300,209907/08/23 08/26/23 History [Sinemet CR 25-100 mg] Lactobacillus Acidophilus 1 cap PO BID@0900,2100 07/08/23 08/26/23 History [Acidophilus Probiotic] Lactose-Reduced Food [Ensure Plus] 1 can PO BID@0900,1700 07/08/23 08/26/23 History Tamsulosin [Flomax] 0.4 mg PO DAILY@0900 07/08/23 08/26/23 History ALPRAZolam [Xanax] 0.25 mg PO BID PRN 08/26/23 08/26/23 History Ascorbic Acid [Vitamin C] 500 mg PO DAILY@0900 08/26/23 08/26/23 History Cholecalciferol [Vitamin D3 (25 50 mcg PO DAILY 08/26/23 08/26/23 History Mcg = 1000 Iu)] Cyanocobalamin [Vitamin B-12] 1,000 mcg PO DAILY@0900 08/26/23 08/26/23 History Famotidine [Pepcid] 20 mg PO BID@0900,209908/26/23 08/26/23 History Sertraline [Zoloft] 50 mg PO DAILY 08/26/23 08/26/23 History Zinc Gluconate [Zinc] 50 mg PO DAILY 08/26/23 08/26/23 History cefUROXime axetiL [Ceftin] 500 mg PO BID@0900,209908/26/23 08/26/23 History Allergies Allergy/AdvReac Type Severity Reaction Status Date / Time No Known Allergies Allergy Verified 08/26/23 15:23 Physical Exam Vitals: Vital Signs Temp Pulse Resp BP Pulse Ox 08/26/23 12:30 86 16 125/92 95 08/26/23 12:00 86 18 146/94 96 08/26/23 11:30 90 18 139/79 97 08/26/23 11:00 90 24 154/84 96 08/26/23 10:54 98.1 F 90 22 154/84 95 08/26/23 10:52 92 20 133/106 97 08/26/23 09:14 101.6 F H 90 16 111/68 95 Intake and Output 08/25/23 08/26/23 08/26/23 22:59 06:59 14:59 Other: Weight 53.479 kg - Constitutional General appearance: Present: average body habitus, cooperative, no acute distress - EENT Eyes: Present: anicteric sclerae, EOMI, PERRLA, normal appearance ENT: Present: hearing grossly normal, normal oropharynx Ears: bilateral: normal - Neck Neck: Present: normal ROM. Absent: lymphadenopathy, rigidity, thyromegaly Carotids: negative: bruit present Thyroid: bilateral: normal size, negative: enlarged, nodule - Respiratory Respiratory: bilateral: CTA, negative: rales, rhonchi, wheezing - Cardiovascular Rhythm: regular Heart sounds: normal: S1, S2 Abnormal Heart Sounds: Absent: systolic murmur, diastolic murmur - Gastrointestinal General gastrointestinal: Present: normal bowel sounds, soft. Absent: distended, organomegaly, tenderness - Genitourinary Genitourinary Comment(s): deferred - Integumentary Integumentary: Present: normal turgor. Absent: jaundiced, rash, ulcer - Neurologic Neurologic: Unable to evaluate, patient does not follow any commands - Musculoskeletal Musculoskeletal: Present: gait normal, strength equal bilaterally - Psychiatric Psychiatric: Present: A&O x's 0 Results CBC & Chem 7: 08/26/23 09:43 08/26/23 09:43 Labs: Abnormal Lab Results - Last 24 Hours (Table) 08/26/23 08/26/23 08/26/23 Range/Units 09:43 09:43 09:43 Hgb 12.8 L (13.0-17.5) gm/dL Neutrophils # 8.3 H (1.3-7.7) k/uL Lymphocytes # 0.9 L (1.0-4.8) k/uL PT 13.1 H (10.0-12.5) sec INR 1.2 H (<1.2) APTT 16.9 L (22.0-30.0) sec Sodium (137-145) mmol/L Chloride (98-107) mmol/L BUN (9-20) mg/dL Creatinine (0.66-1.25) mg/dL Glucose (74-99) mg/dL Total Protein (6.3-8.2) g/dL Albumin (3.5-5.0) g/dL Urine Protein Trace H (Negative) Urine Blood Moderate H (Negative) Ur Leukocyte Esterase Large H (Negative) Urine RBC 32 H (0-5) /hpf Urine WBC 127 H (0-5) /hpf Urine WBC Clumps Few H (None) /hpf Urine Bacteria Rare H (None) /hpf Urine Mucus Moderate H (None) /hpf 08/26/23 Range/Units 09:43 Hgb (13.0-17.5) gm/dL Neutrophils # (1.3-7.7) k/uL Lymphocytes # (1.0-4.8) k/uL PT (10.0-12.5) sec INR (<1.2) APTT (22.0-30.0) sec Sodium 157 H (137-145) mmol/L Chloride 125 H (98-107) mmol/L BUN 76 H (9-20) mg/dL Creatinine 1.66 H (0.66-1.25) mg/dL Glucose 187 H (74-99) mg/dL Total Protein 6.2 L (6.3-8.2) g/dL Albumin 3.1 L (3.5-5.0) g/dL Urine Protein (Negative) Urine Blood (Negative) Ur Leukocyte Esterase (Negative) Urine RBC (0-5) /hpf Urine WBC (0-5) /hpf Urine WBC Clumps (None) /hpf Urine Bacteria (None) /hpf Urine Mucus (None) /hpf Assessment and Plan Assessment: 1. Altered mental status; likely toxic metabolic encephalopathy related to UTI, electrolyte imbalance and renal insufficiency --We will consult neurology 2. Hypernatremia; sodium elevated at 157 -We will start patient on half-normal saline at a rate of 75 cc an hour; monitor electrolytes closely 3. Acute renal injury -IV fluid hydration as indicated above; will monitor strict SAUD's, daily weights, renal function electrolytes -- Avoid nephrotoxins and hypotension 4. UTI; patient has been placed on IV Rocephin; urine culture and blood cultures obtained; further recommendations pending clinical course 5. Hyperglycemia; no history of diabetes mellitus; will monitor Accu-Cheks before every meal and at bedtime with insulin sliding scale 6. Anxiety/depression; patient is currently on Zoloft and Xanax; will hold off on Xanax given mental status change 7. BPH; Flomax 0.4 mg daily DVT prophylaxis; SCDs/subcu heparin CODE STATUS; DNR
[2023-08-26 17:58] LABS: Glucose,Whole Blood 146 mg/dL (70-110)
[2023-08-26] MEDS: SODIUM CHLORIDE 0.45% 1,000 ML IV SCH (18:01)
[2023-08-26] MEDS: INSULIN ASPART (NovoLOG) 100 UNIT/ML VIAL SQ SCH (18:16)
[2023-08-26 20:04] LABS: Glucose,Whole Blood 174 mg/dL (70-110)
[2023-08-26] MEDS: CARBIDOPA-LEVODOPA ER 25-100MG 1 EACH TABLET.ER PO SCH (22:27)
[2023-08-26] MEDS: FAMOTIDINE 20 MG TAB PO SCH (22:27)
[2023-08-27 05:49] LABS: Glucose,Whole Blood 160 mg/dL (70-110)
[2023-08-27 08:50] LABS: Basophils # (A) 0.03 X 10*3/uL (0.00-0.10); Basophils % (A) 0.2 %; Eosinophils # (A) 0.09 X 10*3/uL (0.04-0.35); Eosinophils % (A) 0.7 %; HCT 37.9 % (39.6-50.0); HGB 11.7 g/dL (13.0-17.0); Lymphocytes # (A) 1.03 X 10*3/uL (0.90-5.00); Lymphocytes % (A) 8.4 %; MCH 28.5 pg (27.0-32.0); MCHC 30.9 g/dL (32.0-37.0); MCV 92.2 FL (80.0-97.0); Mean Platelet Volume 10.7 FL (9.5-12.2); Monocytes # (A) 0.77 X 10*3/uL (0.20-1.00); Monocytes % (A) 6.3 %; NRBC Per 100 WBC 0 X 10*3/uL (0.00-0.01); Neutrophils # (A) 10.16 X 10*3/uL (1.80-7.70); Platelet Count 214 X 10*3/uL (140-440); RBC 4.11 X 10*6/uL (4.40-5.60); RDW 13.7 % (11.5-14.5); WBC 12.25 X 10*3/uL (4.50-10.00)
[2023-08-27 09:11] LABS: BUN/Creat Ratio 48.67 Ratio (12.00-20.00); Blood Urea Nitrogen 58.4 mg/dL (9.0-27.0); Carbon Dioxide 22.6 mmol/L (21.6-31.8); Chloride 128 mmol/L (96-109); Glucose 142 mg/dL (70-110); Potassium 3.9 mmol/L (3.5-5.5); Sodium 159 mmol/L (135-145)
[2023-08-27] MEDS: TAMSULOSIN 0.4 MG CAP.ER.24H PO SCH (10:06)
[2023-08-27] MEDS: ZINC SULFATE 220 MG CAP PO SCH (10:06)
[2023-08-27] MEDS: CYANOCOBALAMIN 500 MCG TAB PO SCH (10:06)
[2023-08-27] MEDS: ASCORBIC ACID 500 MG TAB PO SCH (10:06)
[2023-08-27] MEDS: CHOLECALCIFEROL 25 MCG (1000 IU) TABLET PO SCH (10:06)
[2023-08-27] MEDS: ASPIRIN 81 MG PO SCH (10:06)
[2023-08-27] MEDS: SERTRALINE 50 MG TAB PO SCH (10:07)
[2023-08-27 11:54] LABS: Glucose,Whole Blood 128 mg/dL (70-110)
--- NOTE | 2023-08-27 12:20 | P.CNNES ---
History of Present Illness Consult date: 08/27/23 Requesting physician: Gui Dent Reason for Consult: Altered mental status History of Present Illness: Patient is a 72-year-old male came to the hospital by ambulance yesterday at 9:12 AM for altered mental status. Patient at present is laying in the bed, keeps his eyes closed, and would not cooperate with the testing or examination. Patient does have advanced dementia. Patient not able to provide any history. As per EMS flowsheet, nurse reported the patient has been declining over the last 4 days with increased altered mental status and altered level of consciousness and is now not alert. Staff mentioned that patient began treatment for UTI on 08/22/2023 and has been on antibiotics twice a day. Nurse mentioned that patient usually sits up in his wheelchair during the day but they have been unable to get patient out of bed. Nurse mentioned that patient also been spitting out his medications. Patient has history of dementia and is alert and oriented x 0 at baseline but is usually alert. Patient is nonverbal and not answering any questions to the EMS. Patient was minimally alert to verbal, skin was pale and hot. Patient's eyes were matted shut so could not check the pupils. Patient appeared dehydrated. Heart monitor showed sinus rhythm with ectopy. Patient's blood glucose was 210 mg/dL. Blood pressure 94/62, pulse rate 98, respirations 16, saturation 95%. Blood test shows normal CBC, INR 1.2, sodium 157, potassium 4.0, BUN 76 creatinine 1.66. Hepatic panel is normal, UA shows large amount of leukocyte esterase, 127 WBC, few WBC clumps and rare bacteria. Influenza, RSV and c oronavirus PCR negative. Patient's renal functions have improved with BUN 58 and creatinine 1.2. Chest x-ray showed chronic changes without evidence of acute pulmonary disease. EKG shows sinus rhythm. CT head showed age-related atrophic and chronic small vessel ischemic change without acute intracranial process. I personally reviewed CT head, agree with the findings. Patient has been seen by myself on 04/10/2023 for Parkinson's, mild to moderate degree. Patient had gait imbalance, frequent falls, mildly increased tone, bradykinesia and micrographia. Patient also has chronic daily headaches. Patient was taking Sinemet 25/100 3 times daily. Patient at that time was alert and oriented x 2, not to the time. Patient currently taking aspirin 81 mg, lactulose, Sinemet ER 25/100 3 times daily at 9 AM 1 PM and 9 PM. Flomax, Xanax 0.25 mg twice daily Ceftin 500 mg twice daily Zoloft 50 mg, Pepcid and B12. Review of Systems Spoke with the nurse, does not know anything more details. Family members not present. ROS unobtainable: due to mental status Past Medical History Past Medical History: Coronary Artery Disease (CAD), Chest Pain / Angina, Prostate Disorder Additional Past Medical History / Comment(s): BPH, chronic low back pain, recent root canal-was on ABX. History of Any Multi-Drug Resistant Organisms: None Reported Past Surgical History: Heart Catheterization Additional Past Surgical History / Comment(s): 2013 Cardiac cath-treated medically, wisdom teeth extraction, VASECTOMY Past Anesthesia/Blood Transfusion Reactions: No Reported Reaction Past Psychological History: No Psychological Hx Reported Smoking Status: Never smoker Past Alcohol Use History: Rare Past Drug Use History: None Reported - Past Family History Father Family Medical History: Coronary Artery Disease (CAD) Additional Family Medical History / Comment(s): Father at 88 yrs of age. He had heart problems late in life. Mother Family Medical History: No Reported History Additional Family Medical History / Comment(s): Mother was healthy. She at the age of 94 yrs. Medications and Allergies Home Medications Medication Instructions Recorded Confirmed Type Aspirin EC [Ecotrin Low Dose] 81 mg PO DAILY@0900 04/09/23 08/26/23 History Lactulose [Cephulac] 20 gm PO DAILY PRN ml 04/11/23 08/26/23 Rx Acetaminophen Tab [Tylenol] 325 mg PO Q4H PRN 07/08/23 08/26/23 History Calcium Carbonate [Tums] 500 mg PO Q4HR PRN 07/08/23 08/26/23 History Carbidopa-Levodopa ER 25-100Mg 1 tab PO TID@0900,1300,209907/08/23 08/26/23 History [Sinemet CR 25-100 mg] Lactobacillus Acidophilus 1 cap PO BID@0900,2100 07/08/23 08/26/23 History [Acidophilus Probiotic] Lactose-Reduced Food [Ensure Plus] 1 can PO BID@0900,1700 07/08/23 08/26/23 History Tamsulosin [Flomax] 0.4 mg PO DAILY@0900 07/08/23 08/26/23 History ALPRAZolam [Xanax] 0.25 mg PO BID PRN 08/26/23 08/26/23 History Ascorbic Acid [Vitamin C] 500 mg PO DAILY@0900 08/26/23 08/26/23 History Cholecalciferol [Vitamin D3 (25 50 mcg PO DAILY 08/26/23 08/26/23 History Mcg = 1000 Iu)] Cyanocobalamin [Vitamin B-12] 1,000 mcg PO DAILY@00 08/26/23 08/26/23 History Famotidine [Pepcid] 20 mg PO BID@0900,209908/26/23 08/26/23 History Sertraline [Zoloft] 50 mg PO DAILY 08/26/23 08/26/23 History Zinc Gluconate [Zinc] 50 mg PO DAILY 08/26/23 08/26/23 History cefUROXime axetiL [Ceftin] 500 mg PO BID@0900,209908/26/23 08/26/23 History Allergies Allergy/AdvReac Type Severity Reaction Status Date / Time No Known Allergies Allergy Verified 08/26/23 15:23 Physical Examination - Vital Signs Vital Signs: Vital Signs Temp Pulse Pulse Resp BP BP Pulse Ox 08/27/23 07:46 97.5 F L 87 19 128/78 93 L 08/27/23 00:58 97.9 F 86 15 113/71 95 08/26/23 19:15 98.6 F 93 15 126/77 98 08/26/23 16:26 98.3 F 82 19 127/86 100 08/26/23 16:01 99 18 170/90 95 08/26/23 12:30 86 16 125/92 95 08/26/23 12:00 86 18 146/94 96 08/26/23 11:30 90 18 139/79 97 Intake and Output 08/26/23 08/27/23 08/27/23 22:59 06:59 14:59 Output Total 325 900 Balance -325 -900 Output: Urine 325 900 Uretheral (Bejarano) 125 Other: Voiding Method Indwelling Catheter Indwelling Catheter # Bowel Movements 3 Patient is an elderly male, who is laying in the bed, sleeping in no acute distress. Patient is laying in the bed, keeps his eyes closed. Patient would not open his eyes to calling his name loudly. On shaking his legs, he did not open his eyes. However when he tries to wake him up, he will withdraw his arms. Patient is severely encephalopathic. Speech and language functions, and memory functions cannot be assessed. Patient does have baseline significant dementia. On cranial nerve examination, pupils could not be tested, as he keeps his eyes shut, and when tried to open manually, patient squeezes it shut more forcefully. Patient then opened his eyes spontaneously, and tried to grab something with his right hand, uncertain if hallucinating. Pupils still could not be tested. The gaze did appear midline. Face is symmetric, did not protrude his tongue, and lower cranial nerves cannot be assessed. On muscle strength testing, patient would not cooperate at all. He is keeping his hands in a printed circuit board designer. When I try to put my fingers inside his printed circuit board designer, he squeezes it shut more tightly. Patient would not cooperate for checking pronator drift. His tone is severely increased bilaterally. Patient slightly withdraws his feet to nailbed pressure bilaterally. Patient at times seen trying to scratch something from the bedsheet. Deep tendon reflexes are symmetric 1 in the arms and legs and plantars are withdrawal bilaterally. Sensory to touch cannot be checked, but with nailbed pressure, patient grimaces equally and also try to avoid the hand equally. Cerebellar function showed no ataxia for [id number] testing. No d ysdiadochokinesia. No ataxia for niyr-ky-spac testing on either side. Tone is severely increased bilaterally in the arms, whereas [id number]-[id number] in the lower limbs, with evidence of some paratonia in the upper limbs and bulk of muscles normal. Patient has intermittent tremors of the right hand at rest. Gait deferred.. On general examination, there is no carotid bruit or murmur, S1-S2 audible. Chest is clear on consultation. Abdomen is soft nontender. No organomegaly, bowel sounds present. Peripheral pulses are present. No peripheral edema. Results - Laboratory Findings CBC and BMP: 08/27/23 05:36 08/27/23 05:36 Abnormal Lab Findings: Abnormal Labs 08/26/23 08/26/23 08/26/23 09:43 09:43 09:43 WBC RBC Hgb 12.8 L Hct MCHC Immature Gran # Neutrophils # 8.3 H Lymphocytes # 0.9 L PT 13.1 H INR 1.2 H APTT 16.9 L Sodium Chloride BUN Creatinine BUN/Creatinine Ratio Glucose POC Glucose (mg/dL) Calcium Total Protein Albumin Urine Protein Trace H Urine Blood Moderate H Ur Leukocyte Esterase Large H Urine RBC 32 H Urine WBC 127 H Urine WBC Clumps Few H Urine Bacteria Rare H Urine Mucus Moderate H 08/26/23 08/26/23 08/26/23 09:43 17:41 17:57 WBC RBC Hgb Hct MCHC Immature Gran # Neutrophils # Lymphocytes # PT INR APTT Sodium 157 H 158 H Chloride 125 H BUN 76 H Creatinine 1.66 H BUN/Creatinine Ratio Glucose 187 H POC Glucose (mg/dL) 146 H Calcium Total Protein 6.2 L Albumin 3.1 L Urine Protein Urine Blood Ur Leukocyte Esterase Urine RBC Urine WBC Urine WBC Clumps Urine Bacteria Urine Mucus 08/26/23 08/27/23 08/27/23 20:02 05:36 05:36 WBC 12.25 H RBC 4.11 L Hgb 11.7 L Hct 37.9 L MCHC 30.9 L Immature Gran # 0.17 H Neutrophils # 10.16 H Lymphocytes # PT INR APTT Sodium 159 H Chloride 128 H BUN 58.4 H Creatinine BUN/Creatinine Ratio 48.67 H Glucose 142 H POC Glucose (mg/dL) 174 H Calcium 8.0 L Total Protein Albumin Urine Protein Urine Blood Ur Leukocyte Esterase Urine RBC Urine WBC Urine WBC Clumps Urine Bacteria Urine Mucus 08/27/23 05:45 WBC RBC Hgb Hct MCHC Immature Gran # Neutrophils # Lymphocytes # PT INR APTT Sodium Chloride BUN Creatinine BUN/Creatinine Ratio Glucose POC Glucose (mg/dL) 160 H Calcium Total Protein Albumin Urine Protein Urine Blood Ur Leukocyte Esterase Urine RBC Urine WBC Urine WBC Clumps Urine Bacteria Urine Mucus Assessment and Plan Assessment: * Altered mental status, likely due to toxic metabolic encephalopathy * Probable acute UTI. * Hypernatremia * Acute kidney injury, likely due to dehydration, improved * Dementia, advanced * Parkinson's disease * Coronary artery disease. Plan: * Patient appears to have significant toxic metabolic encephalopathy. Patient's limited examination is nonfocal. * We will check EEG evaluate for encephalopathy, rule out any nonconvulsive status. * Patient is currently on ceftriaxone for probable UTI. * Will try to obtain collateral history from patient's . * Neurology will follow. Thank you for the consult.
[2023-08-27 16:32] VITALS: BMI 17.4
[2023-08-27 17:09] LABS: Glucose,Whole Blood 111 mg/dL (70-110)
[2023-08-27] MEDS: levETIRAcetam IV 500 MG/5 ML VIAL IVP STA (17:50)
[2023-08-27 20:36] LABS: Glucose,Whole Blood 109 mg/dL (70-110)
[2023-08-27] MEDS: levETIRAcetam 500 MG TAB PO SCH (21:29)
--- NOTE | 2023-08-27 23:05 | P.PN ---
Subjective 72-year-old male who presents to the emergency department from half-way they stated that normally is alert and oriented x 0 and today he continues Boutt he normally sits up and Boutt on his own he is sitting up and they thought that was acting a little differently so they sent the patient into the emergency department. They deny any trauma. Patient does have a Bejarano catheter in place. Patient has had no vomiting or diarrhea. Patient has had no reported fevers. And there is no other history available because no one came with the patient. All history is from EMS Blood work completed in ED reveals a WBC of 10.1, hemoglobin of 12.8 and platelet count of 231, sodium 157, potassium 4.0, BUNs/creatinine of 76/1.66 and blood glucose of 187 UA is positive for blood, leukocyte esterase, WBCs and bacteria 08/27/2023 Patient is a still very confused and nonverbal He was on D5 half normal saline at 100 mL per hour We will change to D5 W at 75 mL/hr he is also on ceftriaxone for UTI Elevated to 1.6, baseline 0.6. Objective - Vital Signs Vital signs: Vital Signs Temp 97.5 F L 08/27/23 07:46 Pulse 87 08/27/23 07:46 Resp 19 08/27/23 07:46 BP 128/78 08/27/23 07:46 Pulse Ox 93 L 08/27/23 07:46 FiO2 Intake & Output 08/26/23 08/27/23 08/27/23 18:59 06:59 18:59 Output Total 325 900 Balance -325 -900 Weight 53.479 kg Output: Urine 325 900 Uretheral (Bejarano) 125 Other: Voiding Method Indwelling Catheter Indwelling Catheter # Bowel Movements 3 - Exam -GENERAL: The patient is confused, nonverbal awake stairs HEENT: Pupils are round and equally reacting to light. EOMI. No scleral icterus. No conjunctival pallor. Normocephalic, atraumatic. No pharyngeal erythema. No thyromegaly. CARDIOVASCULAR: S1 and S2 present. No murmurs, rubs, or gallops. PULMONARY: Chest is clear to auscultation, no wheezing , no crackles. ABDOMEN: Soft, nontender, nondistended, normoactive bowel sounds. No palpable organomegaly. MUSCULOSKELETAL: No joint swelling or deformity. EXTREMITIES: No cyanosis, clubbing, or pedal edema. NEUROLOGICAL: Gross neurological examination did not reveal any focal deficits. SKIN: No rashes. no petechiae. - Labs CBC & Chem 7: 08/27/23 05:36 08/27/23 05:36 Labs: Abnormal Lab Results - Last 24 Hours (Table) 08/26/23 08/26/23 08/26/23 Range/Units 17:41 17:57 20:02 WBC (4.50-10.00) X 10*3/uL RBC (4.40-5.60) X 10*6/uL Hgb (13.0-17.0) g/dL Hct (39.6-50.0) % MCHC (32.0-37.0) g/dL Immature Gran # (0.00-0.04) X 10*3/uL Neutrophils # (1.80-7.70) X 10*3/uL Sodium 158 H (137-145) mmol/L Chloride (96-109) mmol/L BUN (9.0-27.0) mg/dL BUN/Creatinine Ratio (12.00-20.00) Ratio Glucose (70-110) mg/dL POC Glucose (mg/dL) 146 H 174 H (70-110) mg/dL Calcium (8.7-10.3) mg/dL 08/27/23 08/27/23 08/27/23 Range/Units 05:36 05:36 05:45 WBC 12.25 H (4.50-10.00) X 10*3/uL RBC 4.11 L (4.40-5.60) X 10*6/uL Hgb 11.7 L (13.0-17.0) g/dL Hct 37.9 L (39.6-50.0) % MCHC 30.9 L (32.0-37.0) g/dL Immature Gran # 0.17 H (0.00-0.04) X 10*3/uL Neutrophils # 10.16 H (1.80-7.70) X 10*3/uL Sodium 159 H (137-145) mmol/L Chloride 128 H (96-109) mmol/L BUN 58.4 H (9.0-27.0) mg/dL BUN/Creatinine Ratio 48.67 H (12.00-20.00) Ratio Glucose 142 H (70-110) mg/dL POC Glucose (mg/dL) 160 H (70-110) mg/dL Calcium 8.0 L (8.7-10.3) mg/dL 08/27/23 Range/Units 11:52 WBC (4.50-10.00) X 10*3/uL RBC (4.40-5.60) X 10*6/uL Hgb (13.0-17.0) g/dL Hct (39.6-50.0) % MCHC (32.0-37.0) g/dL Immature Gran # (0.00-0.04) X 10*3/uL Neutrophils # (1.80-7.70) X 10*3/uL Sodium (137-145) mmol/L Chloride (96-109) mmol/L BUN (9.0-27.0) mg/dL BUN/Creatinine Ratio (12.00-20.00) Ratio Glucose (70-110) mg/dL POC Glucose (mg/dL) 128 H (70-110) mg/dL Calcium (8.7-10.3) mg/dL Assessment and Plan Assessment: Altered mental status, metabolic encephalopathy Acute urinary tract infection Hypernatremia Acute kidney injury Dimension Parkinson disease BPH Anxiety and depression Plan: Continue with ceftriaxone Continue with D5W at 75 monitor sodium level and creatinine Neurology consult Labs and medication were reviewed.. Continue same treatment. Continue with symptomatic treatment. Resume home medication. Monitor labs and vitals. DVT and GI prophylaxis. Further recommendations as per clinical course of the patient DVT prophylaxis: Subcutaneous heparin GI Prophylaxis: Pepcid Prognosis is guarded
[2023-08-27] MEDS: DEXTROSE 5% IN WATER 1,000 ML IV SCH (23:39)
--- NOTE | 2023-08-27 23:42 | EEG ---
ELECTROENCEPHALOGRAM REPORT PREAMBLE: This is a 72-year-old male with altered mental status. EEG FINDINGS: This is a 21-channel digital EEG recorded with video component, utilizing 10/20 international system with referential and bipolar montages. Background consists of moderately well-developed, but poorly regulated, mixed frequencies of 5 to 6 hertz theta seen diffusely in bihemispheric region. Background does not seem to be clearly reactive to eye opening or closing. Photic stimulation and hyperventilation were not done. Waves are frequent, sharp waves seen involving either the left temporal region or sometimes bilateral synchronous. Sporadic body jerks, leg jerks, hand tremors were documented, but there was no electrographic seizure seen during this study. Different stages of sleep were not seen. IMPRESSION: This is an abnormal EEG due to; 1. Background slowing of moderate degree, suggestive of generalized cerebral dysfunction as can be seen with toxic metabolic encephalopathy or related to diffuse structural brain abnormality. Clinical correlation is recommended. 2. Presence of frequent sharp appearing waves, frequently involving the left temporal region, sometimes synchronous bilaterally, suggestive of focal cortical neuronal dysfunction with underlying cortical irritability and tendency for seizure. Followup EEG recommended, if clinically indicated. No electrographic seizure was recorded. MMODL / IJN: [id number] /
[2023-08-28] MEDS: ACYCLOVIR SODIUM 500 MG in SODIUM CHLORIDE 0.9% 100 ML IVPB SCH (01:43)
[2023-08-28 06:28] LABS: Glucose,Whole Blood 152 mg/dL (70-110)
[2023-08-28] MEDS: HEPARIN SODIUM,PORCINE 5,000 UNIT/ML 1 ML VIAL SQ SCH (09:10)
--- NOTE | 2023-08-28 09:35 | P.PN ---
Subjective 72-year-old male who presents to the emergency department from detention they stated that normally is alert and oriented x 0 and today he continues Boutt he normally sits up and Boutt on his own he is sitting up and they thought that was acting a little differently so they sent the patient into the emergency department. They deny any trauma. Patient does have a Bejarano catheter in place. Patient has had no vomiting or diarrhea. Patient has had no reported fevers. And there is no other history available because no one came with the patient. All history is from EMS Blood work completed in ED reveals a WBC of 10.1, hemoglobin of 12.8 and platelet count of 231, sodium 157, potassium 4.0, BUNs/creatinine of 76/1.66 and blood glucose of 187 UA is positive for blood, leukocyte esterase, WBCs and bacteria 08/27/2023 Patient is a still very confused and nonverbal He was on D5 half normal saline at 100 mL per hour We will change to D5 W at 75 mL/hr he is also on ceftriaxone for UTI Elevated to 1.6, baseline 0.6. 08/28/2023 Patient remains very confused and lethargic, he closes eye all the time, nonverbal Patient is afebrile Labs from today are still pending He remains on ceftriaxone and acyclovir was added EEG showing severe toxic metabolic encephalopathy. Plus frequent sharp waves involving the left temporal region. No electrographic seizure was recorded He is also on D5W at 75 mL/h Objective - Vital Signs Vital signs: Vital Signs Temp 98.0 F 08/28/23 07:13 Pulse 59 L 08/28/23 07:13 Resp 23 08/28/23 07:13 BP 127/81 08/28/23 07:13 Pulse Ox 97 08/28/23 07:13 FiO2 Intake & Output 08/27/23 08/28/23 08/28/23 18:59 06:59 18:59 Output Total 400 600 Balance -400 -600 Weight 53.479 kg Output: Urine 400 600 Other: Voiding Method Indwelling Catheter Indwelling Catheter Indwelling Catheter # Bowel Movements 1 - Exam -GENERAL: The patient is confused, nonverbal awake stairs HEENT: Pupils are round and equally reacting to light. EOMI. No scleral icterus. No conjunctival pallor. Normocephalic, atraumatic. No pharyngeal erythema. No thyromegaly. CARDIOVASCULAR: S1 and S2 present. No murmurs, rubs, or gallops. PULMONARY: Chest is clear to auscultation, no wheezing , no crackles. ABDOMEN: Soft, nontender, nondistended, normoactive bowel sounds. No palpable organomegaly. MUSCULOSKELETAL: No joint swelling or deformity. EXTREMITIES: No cyanosis, clubbing, or pedal edema. NEUROLOGICAL: Gross neurological examination did not reveal any focal deficits. SKIN: No rashes. no petechiae. - Labs CBC & Chem 7: 08/27/23 05:36 08/27/23 05:36 Labs: Abnormal Lab Results - Last 24 Hours (Table) 08/27/23 08/27/23 08/28/23 Range/Units 11:52 17:08 06:23 POC Glucose (mg/dL) 128 H 111 H 152 H (70-110) mg/dL Microbiology - Last 24 Hours (Table) 08/26/23 09:43 Urine Culture - Final Urine,Voided 08/26/23 09:25 Blood Culture - Preliminary Blood 08/26/23 09:40 Blood Culture - Preliminary Blood Assessment and Plan Assessment: Altered mental status, metabolic encephalopathy. EEG showing sharp waves with over the left peroneal region Acute urinary tract infection Hypernatremia Acute kidney injury Dimension Parkinson disease BPH Anxiety and depression Plan: Continue with ceftriaxone Continue with D5W at 75 monitor sodium level and creatinine Neurology consult Labs and medication were reviewed.. Continue same treatment. Continue with symptomatic treatment. Resume home medication. Monitor labs and vitals. DVT a nd GI prophylaxis. Further recommendations as per clinical course of the patient DVT prophylaxis: Subcutaneous heparin GI Prophylaxis: Pepcid Prognosis is guarded
[2023-08-28 11:40] LABS: Glucose,Whole Blood 146 mg/dL (70-110)
[2023-08-28 14:57] LABS: Basophils % (A) 0 %; Eosinophils # (A) 0.3 k/uL (0-0.7); Eosinophils % (A) 3 %; HCT 37.5 % (39.0-53.0); HGB 12.5 gm/dL (13.0-17.5); Hypochromasia Slight; Lymphocytes # (A) 1.1 k/uL (1.0-4.8); Lymphocytes % (A) 10 %; MCH 29.6 pg (25.0-35.0); MCHC 33.2 g/dL (31.0-37.0); Mean Platelet Volume 8.1; Monocytes # (A) 0.3 k/uL (0-1.0); Monocytes % (A) 3 %; Neutrophils # (A) 9.5 k/uL (1.3-7.7); Neutrophils % (A) 84 %; Platelet Count 211 k/uL (150-450); RBC 4.22 m/uL (4.30-5.90); RDW 13.7 % (11.5-15.5); WBC 11.3 k/uL (3.8-10.6)
[2023-08-28 15:08] LABS: African American GFR (CKD) >90 (>60 ml/min/1.73 sqM); Anion Gap 2 mmol/L; Blood Urea Nitrogen 35 mg/dL (9-20); Calcium 7.7 mg/dL (8.4-10.2); Carbon Dioxide 22 mmol/L (22-30); Chloride 126 mmol/L (98-107); Glucose 156 mg/dL (74-99); Non-African American GFR(CKD) 79 (>60 ml/min/1.73 sqM); Potassium 3.8 mmol/L (3.5-5.1); Sodium 150 mmol/L (137-145)
[2023-08-28] MEDS: levETIRAcetam IV 500 MG/5 ML VIAL IVP SCH (15:50)
[2023-08-28 16:36] LABS: Glucose,Whole Blood 151 mg/dL (70-110)
[2023-08-28 18:22] LABS: Glucose,CSF 73 mg/dL (40-70); Total Protein,CSF 127 mg/dL (12-60)
[2023-08-28] MEDS: LIDOCAINE 1% INJ 10MG/ML (20 ML MDV) SQ ONE (18:42)
[2023-08-28 20:39] LABS: Appearance,CSF Hazy; CSF Tube Number 4
[2023-08-28 20:43] LABS: Nucleated Cells, CSF 2 u/L (0-5)
[2023-08-28 20:47] LABS: Red Blood Cell, CSF Crenated 2 %; Red Blood Cell, CSF Fresh 98 %; Red Blood Cell,CSF 1410 u/L (0-10)
[2023-08-28 20:59] LABS: Glucose,Whole Blood 161 mg/dL (70-110)
[2023-08-29 02:52] LABS: Appearance,CSF Clear; CSF Tube Number 3
[2023-08-29 02:53] LABS: Nucleated Cells, CSF 1 u/L (0-5); Red Blood Cell, CSF Crenated 0 %; Red Blood Cell, CSF Fresh 100 %; Red Blood Cell,CSF 292 u/L (0-10)
[2023-08-29 05:31] LABS: Glucose,Whole Blood 175 mg/dL (70-110)
[2023-08-29 08:48] LABS: Basophils # (A) 0.03 X 10*3/uL (0.00-0.10); Basophils % (A) 0.2 %; Eosinophils # (A) 0.34 X 10*3/uL (0.04-0.35); Eosinophils % (A) 2.7 %; HCT 36.1 % (39.6-50.0); HGB 11.7 g/dL (13.0-17.0); Lymphocytes # (A) 1.01 X 10*3/uL (0.90-5.00); MCH 28.5 pg (27.0-32.0); MCHC 32.4 g/dL (32.0-37.0); MCV 87.8 FL (80.0-97.0); Mean Platelet Volume 11.1 FL (9.5-12.2); Monocytes # (A) 0.46 X 10*3/uL (0.20-1.00); Monocytes % (A) 3.6 %; NRBC Per 100 WBC 0 X 10*3/uL (0.00-0.01); Neutrophils # (A) 10.73 X 10*3/uL (1.80-7.70); Neutrophils % (A) 84.7 %; Platelet Count 190 X 10*3/uL (140-440); RBC 4.11 X 10*6/uL (4.40-5.60); RDW 13.1 % (11.5-14.5); WBC 12.67 X 10*3/uL (4.50-10.00)
[2023-08-29 09:18] LABS: BUN/Creat Ratio 31.89 Ratio (12.00-20.00); Blood Urea Nitrogen 28.7 mg/dL (9.0-27.0); Calcium 7.7 mg/dL (8.7-10.3); Carbon Dioxide 23.9 mmol/L (21.6-31.8); Chloride 119 mmol/L (96-109); Glucose 182 mg/dL (70-110); Potassium 3.7 mmol/L (3.5-5.5); Sodium 150 mmol/L (135-145)
--- NOTE | 2023-08-29 10:31 | P.PN ---
Subjective Progress Note Date: 08/28/23 Patient was seen for a follow-up. Patient continues to be severely encephalopathic, obtunded. Patient not following any directions. No obvious seizure-like activity. Objective - Vital Signs Vital signs: Vital Signs Temp 97.7 F 08/28/23 13:19 Pulse 61 08/28/23 13:19 Resp 22 08/28/23 13:19 BP 124/82 08/28/23 13:19 Pulse Ox 96 08/28/23 13:19 FiO2 Intake & Output 08/27/23 08/28/23 08/28/23 18:59 06:59 18:59 Output Total 400 600 Balance -400 -600 Weight 53.479 kg Output: Urine 400 600 Other: Voiding Method Indwelling Catheter Indwelling Catheter Indwelling Catheter # Bowel Movements 1 - Exam Essentially no change as compared to yesterday. Patient not following directions. - Labs CBC & Chem 7: 08/29/23 05:16 08/29/23 05:16 Labs: Abnormal Lab Results - Last 24 Hours (Table) 08/28/23 08/28/23 08/28/23 Range/Units 06:23 11:40 14:47 WBC (3.8-10.6) k/uL RBC (4.30-5.90) m/uL Hgb (13.0-17.5) gm/dL Hct (39.0-53.0) % Neutrophils # (1.3-7.7) k/uL Sodium 150 H (137-145) mmol/L Chloride 126 H (98-107) mmol/L BUN 35 H (9-20) mg/dL Glucose 156 H (74-99) mg/dL POC Glucose (mg/dL) 152 H 146 H (70-110) mg/dL Calcium 7.7 L (8.4-10.2) mg/dL 08/28/23 08/28/23 Range/Units 14:47 16:34 WBC 11.3 H (3.8-10.6) k/uL RBC 4.22 L (4.30-5.90) m/uL Hgb 12.5 L (13.0-17.5) gm/dL Hct 37.5 L (39.0-53.0) % Neutrophils # 9.5 H (1.3-7.7) k/uL Sodium (137-145) mmol/L Chloride (98-107) mmol/L BUN (9-20) mg/dL Glucose (74-99) mg/dL POC Glucose (mg/dL) 151 H (70-110) mg/dL Calcium (8.4-10.2) mg/dL Microbiology - Last 24 Hours (Table) 08/26/23 09:25 Blood Culture - Preliminary Blood 08/26/23 09:40 Blood Culture - Preliminary Blood 08/26/23 09:43 Urine Culture - Final Urine,Voided Assessment and Plan Assessment: * Altered mental status, likely due to toxic metabolic encephalopathy * Abnormal EEG, with evidence of epileptiform activity. Rule out herpes encephalitis. * Probable acute UTI. * Hypernatremia * Acute kidney injury, likely due to dehydration, improved * Dementia, advanced * Parkinson's disease * Coronary artery disease. Plan: * Patient appears to have significant toxic metabolic encephalopathy. Patient's limited examination is nonfocal. Patient's mentation has not improved at all. * EEG was performed, which was abnormal due to background slowing of moderate degree, suggestive of encephalopathy. Presence of frequent sharp appearing waves, frequently involving the left temporal region, sometimes synchronous bilaterally, suggestive of focal cortical neuronal dysfunction, with un derlying cortical irritability and tendency for seizures. * Patient empirically started on Keppra 1000 mg IV push, and then twice daily. * Patient empirically started on acyclovir because of abnormality in the EEG, and persistently abnormal mentation. * Lumbar puncture will be performed today. If no evidence of infection, acyclovir will be discontinued. * Patient is currently on ceftriaxone for probable UTI.
[2023-08-29 11:33] LABS: Glucose,Whole Blood 160 mg/dL (70-110)
--- NOTE | 2023-08-29 12:33 | P.PN ---
Subjective 72-year-old male who presents to the emergency department from intermediate they stated that normally is alert and oriented x 0 and today he continues Boutt he normally sits up and Boutt on his own he is sitting up and they thought that was acting a little differently so they sent the patient into the emergency department. They deny any trauma. Patient does have a Bejarano catheter in place. Patient has had no vomiting or diarrhea. Patient has had no reported fevers. And there is no other history available because no one came with the patient. All history is from EMS Blood work completed in ED reveals a WBC of 10.1, hemoglobin of 12.8 and platelet count of 231, sodium 157, potassium 4.0, BUNs/creatinine of 76/1.66 and blood glucose of 187 UA is positive for blood, leukocyte esterase, WBCs and bacteria 08/27/2023 Patient is a still very confused and nonverbal He was on D5 half normal saline at 100 mL per hour We will change to D5 W at 75 mL/hr he is also on ceftriaxone for UTI Elevated to 1.6, baseline 0.6. 08/28/2023 Patient remains very confused and lethargic, he closes eye all the time, nonverbal Patient is afebrile Labs from today are still pending He remains on ceftriaxone and acyclovir was added EEG showing severe toxic metabolic encephalopathy. Plus frequent sharp waves involving the left temporal region. No electrographic seizure was recorded He is also on D5W at 75 mL/h 08/29/2023 Patient mentation commenced the same, this confused and nonverbal, no involuntary movements CSF was negative for infection Lumbar puncture done yesterday. Acyclovir was discontinued Yesterday sodium dropped to 150, repeat sodium this morning also was 150 therefore increase his D5W at 1 25 mL/h (was 75 mL per hour) Objective - Vital Signs Vital signs: Vital Signs Temp 98.0 F 08/29/23 07:13 Pulse 78 08/29/23 07:13 Resp 17 08/29/23 07:13 BP 115/71 08/29/23 07:13 Pulse Ox 96 08/29/23 07:13 FiO2 Intake & Output 08/28/23 08/29/23 08/29/23 18:59 06:59 18:59 Output Total 900 500 Balance -900 -500 Output: Urine 900 500 Other: Voiding Method Indwelling Catheter Indwelling Catheter Indwelling Catheter # Bowel Movements 1 - Exam -GENERAL: The patient is confused, nonverbal awake stairs HEENT: Pupils are round and equally reacting to light. EOMI. No scleral icterus. No conjunctival pallor. Normocephalic, atraumatic. No pharyngeal erythema. No thyromegaly. CARDIOVASCULAR: S1 and S2 present. No murmurs, rubs, or gallops. PULMONARY: Chest is clear to auscultation, no wheezing , no crackles. ABDOMEN: Soft, nontender, nondistended, normoactive bowel sounds. No palpable organomegaly. MUSCULOSKELETAL: No joint swelling or deformity. EXTREMITIES: No cyanosis, clubbing, or pedal edema. NEUROLOGICAL: Gross neurological examination did not reveal any focal deficits. SKIN: No rashes. no petechiae. - Labs CBC & Chem 7: 08/29/23 05:16 08/29/23 05:16 Labs: Abnormal Lab Results - Last 24 Hours (Table) 08/28/23 08/28/23 08/28/23 Range/Units 14:47 14:47 16:34 WBC 11.3 H (3.8-10.6) k/uL RBC 4.22 L (4.30-5.90) m/uL Hgb 12.5 L (13.0-17.5) gm/dL Hct 37.5 L (39.0-53.0) % Immature Gran # (0.00-0.04) X 10*3/uL Neutrophils # 9.5 H (1.3-7.7) k/uL Sodium 150 H (137-145) mmol/L Chloride 126 H (98-107) mmol/L BUN 35 H (9-20) mg/dL BUN/Creatinine Ratio (12.00-20.00) Ratio Glucose 156 H (74-99) mg/dL POC Glucose (mg/dL) 151 H (70-110) mg/dL Calcium 7.7 L (8.4-10.2) mg/dL CSF RBC (0-10) u/L CSF Glucose (40-70) mg/dL CSF Total Protein (12-60) mg/dL 08/28/23 08/28/23 08/28/23 Range/Units 17:15 17:15 20:55 WBC (3.8-10.6) k/uL RBC (4.30-5.90) m/uL Hgb (13.0-17.5) gm/dL Hct (39.0-53.0) % Immature Gran # (0.00-0.04) X 10*3/uL Neutrophils # (1.3-7.7) k/uL Sodium (137-145) mmol/L Chloride (98-107) mmol/L BUN (9-20) mg/dL BUN/Creatinine Ratio (12.00-20.00) Ratio Glucose (74-99) mg/dL POC Glucose (mg/dL) 161 H (70-110) mg/dL Calcium (8.4-10.2) mg/dL CSF RBC 1410 H 292 H (0-10) u/L CSF Glucose 73 H (40-70) mg/dL CSF Total Protein 127 H (12-60) mg/dL 08/29/23 08/29/23 08/29/23 Range/Units 05:16 05:16 05:30 WBC 12.67 H (3.8-10.6) k/uL RBC 4.11 L (4.30-5.90) m/uL Hgb 11.7 L (13.0-17.5) gm/dL Hct 36.1 L (39.0-53.0) % Immature Gran # 0.10 H (0.00-0.04) X 10*3/uL Neutrophils # 10.73 H (1.3-7.7) k/uL Sodium 150 H (137-145) mmol/L Chloride 119 H (98-107) mmol/L BUN 28.7 H (9-20) mg/dL BUN/Creatinine Ratio 31.89 H (12.00-20.00) Ratio Glucose 182 H (74-99) mg/dL POC Glucose (mg/dL) 175 H (70-110) mg/dL Calcium 7.7 L (8.4-10.2) mg/dL CSF RBC (0-10) u/L CSF Glucose (40-70) mg/dL CSF Total Protein (12-60) mg/dL 08/29/23 Range/Units 11:32 WBC (3.8-10.6) k/uL RBC (4.30-5.90) m/uL Hgb (13.0-17.5) gm/dL Hct (39.0-53.0) % Immature Gran # (0.00-0.04) X 10*3/uL Neutrophils # (1.3-7.7) k/uL Sodium (137-145) mmol/L Chloride (98-107) mmol/L BUN (9-20) mg/dL BUN/Creatinine Ratio (12.00-20.00) Ratio Glucose (74-99) mg/dL POC Glucose (mg/dL) 160 H (70-110) mg/dL Calcium (8.4-10.2) mg/dL CSF RBC (0-10) u/L CSF Glucose (40-70) mg/dL CSF Total Protein (12-60) mg/dL Microbiology - Last 24 Hours (Table) 08/26/23 09:25 Blood Culture - Preliminary Blood 08/26/23 09:40 Blood Culture - Preliminary Blood Assessment and Plan Assessment: Altered mental status, metabolic encephalopathy. EEG showing sharp waves with over the left peroneal region Acute urinary tract infection Hypernatremia Acute kidney injury Dementia Parkinson disease BPH Anxiety and depression Plan: Continue with ceftriaxone Continue with D5W at 125 monitor sodium level Neurology consult, started [place] empirically Labs and medication were reviewed.. Continue same treatment. Continue with symptomatic treatment. Resume home medication. Monitor labs and vitals. DVT and GI prophylaxis. Further recommendations as per clinical course of the patient DVT prophylaxis: Subcutaneous heparin GI Prophylaxis: Pepcid Prognosis is guarded
[2023-08-29 16:36] LABS: Glucose,Whole Blood 164 mg/dL (70-110)
[2023-08-29 21:18] LABS: Glucose,Whole Blood 166 mg/dL (70-110)
--- NOTE | 2023-08-30 01:12 | EEG ---
DATE OF SERVICE: 08/29/2023 ELECTROENCEPHALOGRAM REPORT PREAMBLE: This is a 72-year-old male with altered mental status. This is a followup EEG. EEG FINDINGS: This is a 21-channel digital EEG recorded with video component, utilizing 10/20 international system with referential and bipolar montages. The background consists of fairly well-developed, moderately regulated, predominantly 7 Hertz theta, intermixed with some delta activity in bihemispheric region. Background does not seem to be clearly reactive to eye opening or closing. Photic stimulation and hyperventilation was not done. Different stages of sleep were not clearly seen. No definitive focal or generalized epileptiform activity was seen. IMPRESSION: This is an abnormal EEG due to background slowing of moderate degree. This is suggestive of generalized cerebral dysfunction as can be seen with toxic metabolic encephalopathy or related to diffuse structural brain abnormality. Clinical correlation is recommended. When compared to the EEG from 08/27/2023, the epileptiform activity seems to have resolved. No electrographic seizure was recorded. MMODL / IJN: [id number] / [facility] CENTERGianni
[2023-08-30 06:12] LABS: Glucose,Whole Blood 254 mg/dL (70-110)
--- NOTE | 2023-08-30 09:25 | P.PN ---
Subjective Progress Note Date: 08/29/23 Patient was seen for a follow-up. Patient continues to be severely encephalopathic, obtunded. Patient not following any directions. No obvious seizure-like activity. Objective - Vital Signs Vital signs: Vital Signs Temp 97.6 F 08/29/23 13:00 Pulse 84 08/29/23 13:00 Resp 19 08/29/23 13:00 BP 130/76 08/29/23 13:00 Pulse Ox 94 L 08/29/23 13:00 FiO2 Intake & Output 08/28/23 08/29/23 08/29/23 18:59 06:59 18:59 Output Total 900 500 Balance -900 -500 Output: Urine 900 500 Other: Voiding Method Indwelling Catheter Indwelling Catheter Indwelling Catheter # Bowel Movements 1 - Exam Essentially no change as compared to yesterday. Patient not following directions. - Labs CBC & Chem 7: 08/29/23 05:16 08/29/23 05:16 Labs: Abnormal Lab Results - Last 24 Hours (Table) 08/28/23 08/28/23 08/28/23 Range/Units 14:47 14:47 16:34 WBC 11.3 H (3.8-10.6) k/uL RBC 4.22 L (4.30-5.90) m/uL Hgb 12.5 L (13.0-17.5) gm/dL Hct 37.5 L (39.0-53.0) % Immature Gran # (0.00-0.04) X 10*3/uL Neutrophils # 9.5 H (1.3-7.7) k/uL Sodium 150 H (137-145) mmol/L Chloride 126 H (98-107) mmol/L BUN 35 H (9-20) mg/dL BUN/Creatinine Ratio (12.00-20.00) Ratio Glucose 156 H (74-99) mg/dL POC Glucose (mg/dL) 151 H (70-110) mg/dL Calcium 7.7 L (8.4-10.2) mg/dL CSF RBC (0-10) u/L CSF Glucose (40-70) mg/dL CSF Total Protein (12-60) mg/dL 08/28/23 08/28/23 08/28/23 Range/Units 17:15 17:15 20:55 WBC (3.8-10.6) k/uL RBC (4.30-5.90) m/uL Hgb (13.0-17.5) gm/dL Hct (39.0-53.0) % Immature Gran # (0.00-0.04) X 10*3/uL Neutrophils # (1.3-7.7) k/uL Sodium (137-145) mmol/L Chloride (98-107) mmol/L BUN (9-20) mg/dL BUN/Creatinine Ratio (12.00-20.00) Ratio Glucose (74-99) mg/dL POC Glucose (mg/dL) 161 H (70-110) mg/dL Calcium (8.4-10.2) mg/dL CSF RBC 1410 H 292 H (0-10) u/L CSF Glucose 73 H (40-70) mg/dL CSF Total Protein 127 H (12-60) mg/dL 08/29/23 08/29/23 08/29/23 Range/Units 05:16 05:16 05:30 WBC 12.67 H (3.8-10.6) k/uL RBC 4.11 L (4.30-5.90) m/uL Hgb 11.7 L (13.0-17.5) gm/dL Hct 36.1 L (39.0-53.0) % Immature Gran # 0.10 H (0.00-0.04) X 10*3/uL Neutrophils # 10.73 H (1.3-7.7) k/uL Sodium 150 H (137-145) mmol/L Chloride 119 H (98-107) mmol/L BUN 28.7 H (9-20) mg/dL BUN/Creatinine Ratio 31.89 H (12.00-20.00) Ratio Glucose 182 H (74-99) mg/dL POC Glucose (mg/dL) 175 H (70-110) mg/dL Calcium 7.7 L (8.4-10.2) mg/dL CSF RBC (0-10) u/L CSF Glucose (40-70) mg/dL CSF Total Protein (12-60) mg/dL 08/29/23 Range/Units 11:32 WBC (3.8-10.6) k/uL RBC (4.30-5.90) m/uL Hgb (13.0-17.5) gm/dL Hct (39.0-53.0) % Immature Gran # (0.00-0.04) X 10*3/uL Neutrophils # (1.3-7.7) k/uL Sodium (137-145) mmol/L Chloride (98-107) mmol/L BUN (9-20) mg/dL BUN/Creatinine Ratio (12.00-20.00) Ratio Glucose (74-99) mg/dL POC Glucose (mg/dL) 160 H (70-110) mg/dL Calcium (8.4-10.2) mg/dL CSF RBC (0-10) u/L CSF Glucose (40-70) mg/dL CSF Total Protein (12-60) mg/dL Microbiology - Last 24 Hours (Table) 08/26/23 09:25 Blood Culture - Preliminary Blood 08/26/23 09:40 Blood Culture - Preliminary Blood Assessment and Plan Assessment: * Altered mental status, likely due to toxic metabolic encephalopathy * Abnormal EEG, with evidence of epileptiform activity. HSV encephalitis ruled out with normal CSF. * Probable acute UTI. However cultures came back negative. * Hypernatremia * Acute kidney injury, likely due to dehydration, improved * Dementia, advanced * Parkinson's disease * Coronary artery disease. Plan: * Patient appears to have significant toxic metabolic encephalopathy. Patient's limited examination is nonfocal. Patient's mentation has not improved at all. * Initial EEG 08/27/2023 was abnormal due to background slowing of moderate degree, suggestive of encephalopathy. Presence of frequent sharp appearing waves, frequently involving the left temporal region, sometimes synchronous bilaterally, suggestive of focal cortical neuronal dysfunction, with underlying cortical irritability and tendency for seizures. * Repeat EEG performed today was abnormal due to background slowing of moderate degree. This is suggestive of generalized cerebral dysfunction as can be seen with toxic metabolic encephalopathy or related to diffuse structural brain abnormality. Clinical correlation is recommended. No epileptiform activity was seen. * Patient empirically started on Keppra 1000 mg IV push, and then twice daily. * CSF showed glucose 73, total protein 127 (12-60), WBC 1, RBC 292, all were fresh RBCs. Viral cultures came back negative including HSV 1 and HSV 2 PCR. * Discontinue acyclovir. * Repeat CT head. * Patient is currently on ceftriaxone for probable UTI. * Patient continues to have hypernatremia. Suggest nephrology consultation.
--- NOTE | 2023-08-30 10:37 | XR ---
EXAMINATION TYPE: XR chest 1V DATE OF EXAM: 08/30/2023 HISTORY: Shortness of breath. COMPARISON: August 26, 2023 TECHNIQUE: Single view of the chest is submitted. FINDINGS: Demonstrated are scattered senescent parenchymal change. There is no evidence for focal infiltrate. Linear atelectasis seen at the left lung base. Additional atelectatic changes noted at the right lung base. The heart is stable. Hilar and mediastinal structures are within normal limits. Degenerative changes are seen of the dorsal spine. IMPRESSION: 1. There is no evidence for focal infiltrate. Linear atelectasis seen at the left lung base. Additio nal atelectatic changes noted at the right lung base
--- NOTE | 2023-08-30 10:42 | CT ---
EXAMINATION TYPE: CT brain wo con CT DLP: 1138.4 mGycm, Automated exposure control for dose reduction was used. DATE OF EXAM: 08/30/2023 10:27 AM COMPARISON: 08/26/2023. CLINICAL INDICATION:Male, 72 years old with history of AMS, TECHNIQUE: Brain: Axial CT images of the brain were obtained with coronal and sagittal reformats created and rev iewed. Contrast used: None. Oral contrast used: None. FINDINGS: Brain: Extra-axial spaces: No abnormal extra-axial fluid collections. Ventricular system: Within normal limits Cerebral parenchyma: On coronal imaging there may be an area of hurst-white loss of differentiation on series 203 image 64. No acute intraparenchymal hemorrhage or mass effect. The hurst-white junction i s well differentiated. Cerebellum: Unremarkable. Mass effect: No evidence of midline shift. Intracranial vasculature: Atherosclerotic calcifications of the intracranial vessels. Soft tissues: Normal. Calvarium/osseous structures: No depressed skull fracture. Paranasal sinuses and mastoid air cells: Mild scattered paranasal sinus disease. Visualized orbits: Orbital contents are intact. IMPRESSION: Limited evaluation due to patient positioning there may be a new area in the right occipital lobe of hurst-white loss matter differentiation versus artifact from patient positioning and beam hardening. M RI recommended for confirmation.
[2023-08-30 10:49] LABS: ALT 24 U/L (4-49); AST 21 U/L (17-59); African American GFR (CKD) 85 (>60 ml/min/1.73 sqM); Albumin 2.6 g/dL (3.5-5.0); Albumin/Globulin Ratio 0.9; Alkaline Phosphatase 75 U/L (38-126); Anion Gap 2 mmol/L; Bilirubin,Unconjugated 0.7 mg/dL (0.0-1.1); Blood Urea Nitrogen 24 mg/dL (9-20); Calcium 7.5 mg/dL (8.4-10.2); Carbon Dioxide 26 mmol/L (22-30); Chloride 111 mmol/L (98-107); Globulin 2.9 g/dL; Glucose 211 mg/dL (74-99); Magnesium 2.3 mg/dL (1.6-2.3); Non-African American GFR(CKD) 74 (>60 ml/min/1.73 sqM); Potassium 3.5 mmol/L (3.5-5.1); Sodium 139 mmol/L (137-145); Total Bilirubin 0.7 mg/dL (0.2-1.3); Total Protein 5.5 g/dL (6.3-8.2)
[2023-08-30 10:53] LABS: Basophils % (A) 0 %; Eosinophils # (A) 0.2 k/uL (0-0.7); Eosinophils % (A) 1 %; HCT 36.8 % (39.0-53.0); HGB 12.3 gm/dL (13.0-17.5); Hypochromasia Slight; Lymphocytes # (A) 0.8 k/uL (1.0-4.8); Lymphocytes % (A) 4 %; MCH 29.3 pg (25.0-35.0); MCHC 33.3 g/dL (31.0-37.0); MCV 88.1 fL (80.0-100.0); Mean Platelet Volume 8.5; Monocytes # (A) 0.4 k/uL (0-1.0); Monocytes % (A) 2 %; Neutrophils # (A) 18.4 k/uL (1.3-7.7); Neutrophils % (A) 93 %; Platelet Count 199 k/uL (150-450); RBC 4.18 m/uL (4.30-5.90); RDW 13.4 % (11.5-15.5); WBC 19.8 k/uL (3.8-10.6)
[2023-08-30 11:45] LABS: Glucose,Whole Blood 190 mg/dL (70-110)
[2023-08-30] MEDS: SODIUM CHLORIDE 0.9% 1,000 ML IV SCH (11:59)
[2023-08-30] MEDS: SODIUM CHLORIDE 0.9% 500 ML 500 ML IV ONE (11:59)
[2023-08-30 13:12] LABS: Appearance,Urine Clear (Clear); Bacteria,Urine Rare /hpf; Bilirubin,Urine Negative (Negative); Blood,Urine Trace (Negative); Color,Urine Yellow; Glucose,Urine (UA) Trace (Negative); Hyaline Casts,Urine 1 /lpf (0-2); Ketones,Urine Negative (Negative); Leukocyte Esterase,Urine Small (Negative); Mucus,Urine Many /hpf; Nitrite,Urine Negative (Negative); PH, Urine 5.5 (5.0-8.0); Protein,Urine 1+ (Negative); RBC,Urine 6 /hpf (0-5); Specific Gravity,Urine 1.027 (1.001-1.035); Urobilinogen,Urine <2.0 mg/dL (<2.0); WBC,Urine 17 /hpf (0-5)
--- NOTE | 2023-08-30 16:16 | MR ---
EXAMINATION TYPE: MR brain wo/w con DATE OF EXAM: 08/30/2023 3:59 PM CLINICAL INDICATION:Male, 72 years old with history of AMS, abn CT head, ?CVA; PHH, abnormal CT COMPARISON: 03/27/2019. TECHNIQUE: Multi planar, multi sequence imaging was performed through the brain including: T1, T2, In version recovery, susceptibility weighted imaging and gradient echo imaging and Diffusion weighted im aging. The patient was then given intravenous contrast and multi planar, T1 fat-saturation images wer e obtained. IV Contrast: 5.5 cc Gadavist FINDINGS: The hurst-white junctions, ventricular system, basal cisterns appear unremarkable. Diffusion-weighted imaging shows no evidence of restricted diffusion to suggest acute/subacute infarct. Intracranial ar terial flow voids are maintained. Midline structures show no abnormality. Scattered foci of high T2 s ignal intensity are seen within the periventricular white matter. The susceptibility weighted images do not reveal any evidence for micro-hemorrhage. After administration of gadolinium, no abnormal enha ncement is seen. The bone marrow signal is within normal limits. Paranasal sinuses and mastoid air cells: No significant paranasal sinus disease. Visualized orbits: Orbital contents are intact. IMPRESSION: 1. No finding to correlate with the posterior cranial fossa finding on CT suggesting artifact. No melissa dence of intracranial mass, acute/subacute infarct, or abnormal enhancement. 2. Nonspecific white matter changes, likely related to small vessel ischemic disease.
--- NOTE | 2023-08-30 16:29 | CT ---
EXAMINATION TYPE: CT ChestAbdPelvis w con CT DLP: 1702 mGycm, Automated exposure control for dose reduction was used. DATE OF EXAM: 08/30/2023 4:11 PM COMPARISON: None. CLINICAL INDICATION:Male, 72 years old with history of confused , worsening leukocytosis; PHH, confus ed, worsening leukocytosis Technique: CT ChestAbdPelvis w con; Multiple axial images were obtained. Two-dimensional coronal and sagittal reconstructions were obtained. Contrast used:80 mL of Isovue 300 with IV Contrast, Oral contrast used: without Oral Contrast Findings: CHEST: LUNGS/ PLEURA: Bibasilar streaky atelectasis. AIRWAY: Layering debris is seen within the airways series 3 image 24 which extends into the lower lob es. HEART: Size within normal limits. MEDIASTINUM: No gross evidence of adenopathy. VASCULATURE: No aortic aneurysm. MUSCULOSKELETAL: No acute osseous abnormalities. SOFT TISSUES/LYMPH NODES: Unremarkable. LOWER NECK: No significant findings. ABDOMEN: ABDOMEN LIVER: Unremarkable GALLBLADDER AND BILE DUCTS: Gallstone in the gallbladder neck. PANCREAS: Unremarkable. SPLEEN: Unremarkable. ADRENAL GLANDS: Unremarkable. KIDNEYS AND URETERS: No evidence of hydronephrosis or obstructing renal calculus. The ureters are unr emarkable. High density in the collecting system felt to be excreted IV contrast. PELVIS BLADDER: Nondistended with Bejarano catheter in place. Air in the nondependent portion of the bladder wi th small amount urine likely secondary to Bejarano catheter insertion. REPRODUCTIVE: Prostate is enlarged in size measuring 5.3 cm in transverse dimension. ABDOMEN & PELVIS STOMACH AND BOWEL: Hyperemia of the colon including the cecum and more pronounced in the sigmoid colo n and rectum. Multiple colonic diverticula present. No evidence of bowel obstruction. There is hypere luci of the PERITONEUM: No evidence of pneumoperitoneum or free fluid. VASCULATURE: No evidence of aortic aneurysm. MUSCULOSKELETAL: No acute osseous abnormalities LYMPH NODES: No gross evidence for lymphadenopathy. SOFT TISSUE/ABDOMINAL WALL: Unremarkable IMPRESSION: 1. Colitis involving the cecum, sigmoid and rectum colon. 2. Layering debris within the airways concerning for aspiration. 3. Colonic diverticulosis. 4. Cholelithiasis.
[2023-08-30 17:10] LABS: Glucose,Whole Blood 121 mg/dL (70-110)
[2023-08-30] MEDS: PIPERACILLIN-TAZOBACTAM 3.375 GM in SODIUM CHLORIDE 0.9% 100 ML IVPB SCH (17:44)
[2023-08-30] MEDS: SODIUM CHLORIDE 0.9% 1,000 ML IV ONE (17:44)
[2023-08-30 21:07] LABS: Glucose,Whole Blood 128 mg/dL (70-110)
--- NOTE | 2023-08-30 21:12 | P.PN ---
Subjective 72-year-old male who presents to the emergency department from shelter they stated that normally is alert and oriented x 0 and today he continues Boutt he normally sits up and Boutt on his own he is sitting up and they thought that was acting a little differently so they sent the patient into the emergency department. They deny any trauma. Patient does have a Bejarano catheter in place. Patient has had no vomiting or diarrhea. Patient has had no reported fevers. And there is no other history available because no one came with the patient. All history is from EMS Blood work completed in ED reveals a WBC of 10.1, hemoglobin of 12.8 and platelet count of 231, sodium 157, potassium 4.0, BUNs/creatinine of 76/1.66 and blood glucose of 187 UA is positive for blood, leukocyte esterase, WBCs and bacteria 08/27/2023 Patient is a still very confused and nonverbal He was on D5 half normal saline at 100 mL per hour We will change to D5 W at 75 mL/hr he is also on ceftriaxone for UTI Elevated to 1.6, baseline 0.6. 08/28/2023 Patient remains very confused and lethargic, he closes eye all the time, nonverbal Patient is afebrile Labs from today are still pending He remains on ceftriaxone and acyclovir was added EEG showing severe toxic metabolic encephalopathy. Plus frequent sharp waves involving the left temporal region. No electrographic seizure was recorded He is also on D5W at 75 mL/h 08/29/2023 Patient mentation commenced the same, this confused and nonverbal, no involuntary movements CSF was negative for infection Lumbar puncture done yesterday. Acyclovir was discontinued Yesterday sodium dropped to 150, repeat sodium this morning also was 150 therefore increase his D5W at 1 25 mL/h (was 75 mL per hour) 08/30/2023 Patient today remains confused despite his sodium corrected to 139 and his blood pressure dropped 70/47 and creatinine embolus on normal saline and by the nighttime his blood pressure correct at 126/79 Patient remains confused, MRI of the brain is negative for stroke We repeat CT of the chest and abdomen which shows colitis Ceftriaxone was discontinued and patient started on zosyn twice, there is no way to leave a message However staff the and she may be considering hospice Patient currently DO NOT RESUSCITATE Active Medications Generic Name Dose Route Start Last Admin Trade Name Freq PRN Reason Stop Dose Admin Ascorbic Acid 500 mg 08/27/23 09:00 08/30/23 09:48 Ascorbic Acid 500 Mg Tab PO Not Given DAILY@0900 ON LICENSE OF [facility] Aspirin 81 mg 08/27/23 09:00 08/30/23 09:48 Aspirin 81 Mg PO Not Given DAILY@0900 ON LICENSE OF [facility] Carbidopa/Levodopa 1 each 08/26/23 21:00 08/30/23 21:02 Carbidopa-Levodopa Er 25-100mg 1 Each Tablet.Er PO Not Given TID@0900,1300,2100 ON LICENSE OF [facility] Cholecalciferol 50 mcg 08/27/23 09:00 08/30/23 09:49 Cholecalciferol 25 Mcg (1000 Iu) Tablet PO Not Given DAILY ON LICENSE OF [facility] Cyanocobalamin 1,000 mcg 08/27/23 09:00 08/30/23 09:49 Cyanocobalamin 500 Mcg Tab PO Not Given DAILY@0900 ON LICENSE OF [facility] Famotidine 20 mg 08/26/23 21:00 08/30/23 21:02 Famotidine 20 Mg Tab PO Not Given HS ON LICENSE OF [facility] Heparin Sodium (Porcine) 5,000 unit 08/28/23 09:00 08/30/23 21:03 Heparin Sodium,Porcine 5,000 Unit/Ml 1 Ml Vial SQ 5,000 unit Q12HR CORNELIO Administration Sodium Chloride 1,000 mls @ 75 mls/hr 08/30/23 11:45 08/30/23 11:59 Saline 0.9% IV 75 mls/hr .[id number] CORNELIO Administration Piperacillin Sod/Tazobactam 100 mls @ 25 mls/hr 08/30/23 16:00 08/30/23 17:44 Sod 3.375 gm/ Sodium Chloride IVPB 25 mls/hr Q8HR CORNELIO Administration Protocol Insulin Aspart 0 unit 08/26/23 17:30 08/30/23 17:49 Insulin Aspart (Novolog) 100 Unit/Ml Vial SQ 09/02/23 17:31 Not Given ACHS ON LICENSE OF [facility] Protocol Levetiracetam 1,000 mg 08/28/23 14:40 08/30/23 21:03 Levetiracetam Iv 500 Mg/5 Ml Vial IVP 1,000 mg BID CORNELIO Administration Sertraline HCl 50 mg 08/27/23 09:00 08/30/23 09:49 Sertraline 50 Mg Tab PO Not Given DAILY ON LICENSE OF [facility] Tamsulosin HCl 0.4 mg 08/27/23 09:00 08/30/23 09:49 Tamsulosin 0.4 Mg Cap.Er.24h PO Not Given DAILY@0900 ON LICENSE OF [facility] Zinc Sulfate 220 mg 08/27/23 09:00 08/30/23 09:49 Zinc Sulfate 220 Mg Cap PO Not Given DAILY ON LICENSE OF [facility] Objective - Vital Signs Vital signs: Vital Signs Temp 97.6 F 08/30/23 07:39 Pulse 87 08/30/23 07:39 Resp 22 08/30/23 09:34 BP 102/62 08/30/23 11:15 Pulse Ox 100 08/30/23 07:39 FiO2 Intake & Output 08/29/23 08/30/23 08/30/23 18:59 06:59 18:59 Intake Total 1500 Output Total 125 425 Balance -125 1075 Weight 53.479 kg Intake: Intake, IV Titration 1500 Amount Dextrose 5% in Water 1, 1500 000 ml @ 125 mls/hr IV . Q8H ON LICENSE OF [facility] Rx#:[id number] Output: Urine 125 425 Other: Voiding Method Indwelling Catheter Indwelling Catheter # Bowel Movements 2 - Exam -GENERAL: The patient is confused, nonverbal awake stairs HEENT: Pupils are round and equally reacting to light. EOMI. No scleral icterus. No conjunctival pallor. Normocephalic, atraumatic. No pharyngeal erythema. No thyromegaly. CARDIOVASCULAR: S1 and S2 present. No murmurs, rubs, or gallops. PULMONARY: Chest is clear to auscultation, no wheezing , no crackles. ABDOMEN: Soft, nontender, nondistended, normoactive bowel sounds. No palpable organomegaly. MUSCULOSKELETAL: No joint swelling or deformity. EXTREMITIES: No cyanosis, clubbing, or pedal edema. NEUROLOGICAL: Gross neurological examination did not reveal any focal deficits. SKIN: No rashes. no petechiae. - Labs CBC & Chem 7: 08/30/23 10:25 08/30/23 10:25 Labs: Abnormal Lab Results - Last 24 Hours (Table) 08/29/23 08/29/23 08/30/23 Range/Units 16:34 21:13 06:09 WBC (3.8-10.6) k/uL RBC (4.30-5.90) m/uL Hgb (13.0-17.5) gm/dL Hct (39.0-53.0) % Neutrophils # (1.3-7.7) k/uL Lymphocytes # (1.0-4.8) k/uL Chloride (98-107) mmol/L BUN (9-20) mg/dL Glucose (74-99) mg/dL POC Glucose (mg/dL) 164 H 166 H 254 H (70-110) mg/dL Calcium (8.4-10.2) mg/dL Total Protein (6.3-8.2) g/dL Albumin (3.5-5.0) g/dL Urine Protein (Negative) Urine Glucose (UA) (Negative) Urine Blood (Negative) Ur Leukocyte Esterase (Negative) Urine RBC (0-5) /hpf Urine WBC (0-5) /hpf Urine Bacteria (None) /hpf Urine Mucus (None) /hpf 08/30/23 08/30/23 08/30/23 Range/Units 10:25 10:25 11:45 WBC 19.8 H (3.8-10.6) k/uL RBC 4.18 L (4.30-5.90) m/uL Hgb 12.3 L (13.0-17.5) gm/dL Hct 36.8 L (39.0-53.0) % Neutrophils # 18.4 H (1.3-7.7) k/uL Lymphocytes # 0.8 L (1.0-4.8) k/uL Chloride 111 H (98-107) mmol/L BUN 24 H (9-20) mg/dL Glucose 211 H (74-99) mg/dL POC Glucose (mg/dL) 190 H (70-110) mg/dL Calcium 7.5 L (8.4-10.2) mg/dL Total Protein 5.5 L (6.3-8.2) g/dL Albumin 2.6 L (3.5-5.0) g/dL Urine Protein (Negative) Urine Glucose (UA) (Negative) Urine Blood (Negative) Ur Leukocyte Esterase (Negative) Urine RBC (0-5) /hpf Urine WBC (0-5) /hpf Urine Bacteria (None) /hpf Urine Mucus (None) /hpf 08/30/23 Range/Units 12:59 WBC (3.8-10.6) k/uL RBC (4.30-5.90) m/uL Hgb (13.0-17.5) gm/dL Hct (39.0-53.0) % Neutrophils # (1.3-7.7) k/uL Lymphocytes # (1.0-4.8) k/uL Chloride (98-107) mmol/L BUN (9-20) mg/dL Glucose (74-99) mg/dL POC Glucose (mg/dL) (70-110) mg/dL Calcium (8.4-10.2) mg/dL Total Protein (6.3-8.2) g/dL Albumin (3.5-5.0) g/dL Urine Protein 1+ H (Negative) Urine Glucose (UA) Trace H (Negative) Urine Blood Trace H (Negative) Ur Leukocyte Esterase Small H (Negative) Urine RBC 6 H (0-5) /hpf Urine WBC 17 H (0-5) /hpf Urine Bacteria Rare H (None) /hpf Urine Mucus Many H (None) /hpf Microbiology - Last 24 Hours (Table) 08/26/23 09:25 Blood Culture - Preliminary Blood 08/26/23 09:40 Blood Culture - Preliminary Blood Assessment and Plan Assessment: Acute colitis Altered mental status, metabolic encephalopathy. EEG showing sharp waves with over the left peroneal region Acute urinary tract infection Hypernatremia Acute kidney injury Dementia Parkinson disease BPH Anxiety and depression Plan: Continue with change antibiotics to Zosyn Discontinue D5W and start normal saline at 75 mL/h Monitor blood pressure is considering Hospice for the patient per staff Neurology consult, started Isha empirically Labs and medication were reviewed.. Continue same treatment. Continue with symptomatic treatment. Resume home medication. Monitor labs and vitals. DVT and GI prophylaxis. Further recommendations as per clinical course of the patient DVT prophylaxis: Subcutaneous heparin GI Prophylaxis: Pepcid DO NOT RESUSCITATE Prognosis is guarded
[2023-08-30] MEDS: SCOPOLAMINE 1 MG/72 HR PATCH TRANSDERM STA (22:21)
[2023-08-31 05:55] LABS: Glucose,Whole Blood 163 mg/dL (70-110)
[2023-08-31 07:57] VITALS: BP 95/58; PULSE 100; RESP 28; TEMP 98.1
--- NOTE | 2023-08-31 08:50 | XR ---
EXAMINATION TYPE: XR chest 1V DATE OF EXAM: 08/31/2023 HISTORY: Shortness of breath. COMPARISON: August 30, 2023 TECHNIQUE: Single view of the chest is submitted. FINDINGS: Demonstrated are scattered senescent parenchymal change. Increasing basilar atelectasis and/or infiltrates with small effusions. Lung volumes are diminished. The heart is stable. Hilar and mediastinal structures are within normal limits. Degenerative changes are seen of the dorsal spine. IMPRESSION: 1. Increasing basilar atelectasis and/or infiltrates with small effusions. Lung volumes are diminish ed.
[2023-08-31] MEDS ORDERED: ATROPINE OPHTH SOLN 1% 5ML BTL SUBLINGUAL SCH (10:20)
--- NOTE | 2023-08-31 10:20 | P.PN ---
Subjective Progress Note Date: 08/30/23 Patient was seen for a follow-up. Patient continues to be severely encephalopathic, obtunded. Patient not following any directions. No obvious seizure-like activity. No improvement as compared to yesterday. Objective - Vital Signs Vital signs: Vital Signs Temp 98.0 F 08/30/23 13:38 Pulse 86 08/30/23 13:38 Resp 22 08/30/23 13:38 BP 88/55 08/30/23 13:38 Pulse Ox 99 08/30/23 13:38 FiO2 Intake & Output 08/29/23 08/30/23 08/30/23 18:59 06:59 18:59 Intake Total 1500 Output Total 125 425 Balance -125 1075 Weight 53.479 kg Intake: Intake, IV Titration 1500 Amount Dextrose 5% in Water 1, 1500 000 ml @ 125 mls/hr IV . Q8H [facility] Rx#:[id number] Output: Urine 125 425 Other: Voiding Method Indwelling Catheter Indwelling Catheter Indwelling Catheter # Bowel Movements 2 - Exam Essentially no change as compared to yesterday. Patient not following directions. Patient not responding to calling his name, with minimal response to painful stimuli. Face appears symmetric. Pupils are equal, round and reacting. No obvious seizure-like activity. - Labs CBC & Chem 7: 08/30/23 10:25 08/30/23 10:25 Labs: Abnormal Lab Results - Last 24 Hours (Table) 08/29/23 08/30/23 08/30/23 Range/Units 21:13 06:09 10:25 WBC 19.8 H (3.8-10.6) k/uL RBC 4.18 L (4.30-5.90) m/uL Hgb 12.3 L (13.0-17.5) gm/dL Hct 36.8 L (39.0-53.0) % Neutrophils # 18.4 H (1.3-7.7) k/uL Lymphocytes # 0.8 L (1.0-4.8) k/uL Chloride (98-107) mmol/L BUN (9-20) mg/dL Glucose (74-99) mg/dL POC Glucose (mg/dL) 166 H 254 H (70-110) mg/dL Calcium (8.4-10.2) mg/dL Total Protein (6.3-8.2) g/dL Albumin (3.5-5.0) g/dL Urine Protein (Negative) Urine Glucose (UA) (Negative) Urine Blood (Negative) Ur Leukocyte Esterase (Negative) Urine RBC (0-5) /hpf Urine WBC (0-5) /hpf Urine Bacteria (None) /hpf Urine Mucus (None) /hpf 08/30/23 08/30/23 08/30/23 Range/Units 10:25 11:45 12:59 WBC (3.8-10.6) k/uL RBC (4.30-5.90) m/uL Hgb (13.0-17.5) gm/dL Hct (39.0-53.0) % Neutrophils # (1.3-7.7) k/uL Lymphocytes # (1.0-4.8) k/uL Chloride 111 H (98-107) mmol/L BUN 24 H (9-20) mg/dL Glucose 211 H (74-99) mg/dL POC Glucose (mg/dL) 190 H (70-110) mg/dL Calcium 7.5 L (8.4-10.2) mg/dL Total Protein 5.5 L (6.3-8.2) g/dL Albumin 2.6 L (3.5-5.0) g/dL Urine Protein 1+ H (Negative) Urine Glucose (UA) Trace H (Negative) Urine Blood Trace H (Negative) Ur Leukocyte Esterase Small H (Negative) Urine RBC 6 H (0-5) /hpf Urine WBC 17 H (0-5) /hpf Urine Bacteria Rare H (None) /hpf Urine Mucus Many H (None) /hpf Microbiology - Last 24 Hours (Table) 08/26/23 09:25 Blood Culture - Preliminary Blood 08/26/23 09:40 Blood Culture - Preliminary Blood Assessment and Plan Assessment: * Altered mental status, likely due to toxic metabolic encephalopathy * Abnormal EEG, with evidence of epileptiform activity. HSV encephalitis ruled out with normal CSF. Repeat EEG showed no epileptiform activity. * Probable acute UTI. However cultures came back negative. * Hypernatremia, now resolved * Acute kidney injury, likely due to dehydration, improved * Dementia, advanced * Parkinson's disease * Coronary artery disease. Plan: * Patient appears to have significant toxic metabolic encephalopathy. Patient's limited examination is nonfocal. Patient's mentation has not improved at all. * Repeat CT head performed today revealed possible right occipital lobe hurst- white white matter differentiation loss, possible CVA. It is very questionable. We will check MRI of the brain. * MRI of the brain performed urgently showed no findings to correlate with the posterior cranial fossa finding on the CT, suggesting artifact. No evidence of intracranial mass, acute/subacute infarct or abnormal enhancement. Nonspecific white matter changes, likely related to small vessel ischemic disease. I personally reviewed MRI of the brain and agree with the findings. * Initial EEG 08/27/2023 was abnormal due to background slowing of moderate degree, suggestive of encephalopathy. Presence of frequent sharp appearing waves, frequently involving the left temporal region, sometimes synchronous bilaterally, suggestive of focal cortical neuronal dysfunction, with underlying cortical irritability and tendency for seizures. * Repeat EEG 08/29/2023 was abnormal due to background slowing of moderate degree. This is suggestive of generalized cerebral dysfunction as can be seen with toxic metabolic encephalopathy or related to diffuse structural brain abno rmality. Clinical correlation is recommended. No epileptiform activity was seen. * Patient empirically started on Keppra 1000 mg IV push, and then twice daily. * CSF showed glucose 73, total protein 127 (12-60), WBC 1, RBC 292, all were fresh RBCs. Viral cultures came back negative including HSV 1 and HSV 2 PCR. * Discontinue acyclovir. * Discussed with primary physician, patient started on Zosyn empirically. Ceftriaxone discontinued. * Patient's hypernatremia seems to have resolved. * Patient is no code.
[2023-08-31] MEDS: MORPHINE SULFATE 4 MG/ML SYRINGE IVP STA (10:24)
--- NOTE | 2023-08-31 10:41 | P.PN ---
Subjective 72-year-old male who presents to the emergency department from skilled nursing they stated that normally is alert and oriented x 0 and today he continues Boutt he normally sits up and Boutt on his own he is sitting up and they thought that was acting a little differently so they sent the patient into the emergency department. They deny any trauma. Patient does have a Bejarano catheter in place. Patient has had no vomiting or diarrhea. Patient has had no reported fevers. And there is no other history available because no one came with the patient. All history is from EMS Blood work completed in ED reveals a WBC of 10.1, hemoglobin of 12.8 and platelet count of 231, sodium 157, potassium 4.0, BUNs/creatinine of 76/1.66 and blood glucose of 187 UA is positive for blood, leukocyte esterase, WBCs and bacteria 08/27/2023 Patient is a still very confused and nonverbal He was on D5 half normal saline at 100 mL per hour We will change to D5 W at 75 mL/hr he is also on ceftriaxone for UTI Elevated to 1.6, baseline 0.6. 08/28/2023 Patient remains very confused and lethargic, he closes eye all the time, nonverbal Patient is afebrile Labs from today are still pending He remains on ceftriaxone and acyclovir was added EEG showing severe toxic metabolic encephalopathy. Plus frequent sharp waves involving the left temporal region. No electrographic seizure was recorded He is also on D5W at 75 mL/h 08/29/2023 Patient mentation commenced the same, this confused and nonverbal, no involuntary movements CSF was negative for infection Lumbar puncture done yesterday. Acyclovir was discontinued Yesterday sodium dropped to 150, repeat sodium this morning also was 150 therefore increase his D5W at 1 25 mL/h (was 75 mL per hour) 08/30/2023 Patient today remains confused despite his sodium corrected to 139 and his blood pressure dropped 70/47 and creatinine embolus on normal saline and by the nighttime his blood pressure correct at 126/79 Patient remains confused, MRI of the brain is negative for stroke We repeat CT of the chest and abdomen which shows colitis Ceftriaxone was discontinued and patient started on zosyn twice, there is no way to leave a message However staff the and she may be considering hospice Patient currently DO NOT RESUSCITATE 08/31/2023 Today patient still with an mental status or encephalopathic, his nonverbal not come indicative looks obtunded. Is becoming more tachypneic and hypoxic requiring 5 from up to 14 L of oxygen but is also mouth breather and I discussed with the respiratory therapist to use Ventimask. He has mild abdominal tenderness as he grimace with palpation with evidence of colitis his, he is currently covered with Zosyn He has a lot of secretions and scopolamine patches ordered as well as replaced on IV Lasix twice daily. Repeat chest x-ray was obtained today showing increased basilar atelectasis and/or infiltrate with small effusion. Patient is on normal saline 75 mL/h, IV Lasix 40 mg started today because of his a lot of secretions also he is on scopolamine patch I discussed the case with the today Mrs. Dill over the phone and discussed the case with her His problems and management plan and she confirms to me she wants him to be under hospice care,hospice team were consulted who contacted the , she said she cannot come to the hospital so the hospice team will Lavinia Armentaon the papers. In the meantime patient remains DO NOT RESUSCITATE Overall prognosis is poor Active Medications Generic Name Dose Route Start Last Admin Trade Name Freq PRN Reason Stop Dose Admin Ascorbic Acid 500 mg 08/27/23 09:00 08/31/23 08:11 Ascorbic Acid 500 Mg Tab PO Not Given DAILY@0900 CORNELIO Aspirin 81 mg 08/27/23 09:00 08/31/23 08:11 Aspirin 81 Mg PO Not Given DAILY@0900 [facility] Atropine Sulfate 2 drops 08/31/23 10:20 Atropine Ophth Soln 1% 5ml Btl SUBLINGUAL QID CORNELIO Carbidopa/Levodopa 1 each 08/26/23 21:00 08/31/23 08:11 Carbidopa-Levodopa Er 25-100mg 1 Each Tablet.Er PO Not Given TID@0900,1300,2100 CORNELIO Cholecalciferol 50 mcg 08/27/23 09:00 08/31/23 08:11 Cholecalciferol 25 Mcg (1000 Iu) Tablet PO Not Given DAILY CORNELIO Cyanocobalamin 1,000 mcg 08/27/23 09:00 08/31/23 08:11 Cyanocobalamin 500 Mcg Tab PO Not Given DAILY@0900 [facility] Famotidine 20 mg 08/26/23 21:00 08/30/23 21:02 Famotidine 20 Mg Tab PO Not Given HS [facility] Furosemide 40 mg 08/31/23 10:45 Furosemide 10 Mg/Ml 4 Ml Vial IV Q12HR CORNELIO Heparin Sodium (Porcine) 5,000 unit 08/28/23 09:00 08/31/23 08:10 Heparin Sodium,Porcine 5,000 Unit/Ml 1 Ml Vial SQ 5,000 unit Q12HR CORNELIO Administration Sodium Chloride 1,000 mls @ 75 mls/hr 08/30/23 11:45 08/31/23 00:01 Saline 0.9% IV Not Given .[id number] [facility] Piperacillin Sod/Tazobactam 100 mls @ 25 mls/hr 08/30/23 16:00 08/31/23 08:10 Sod 3.375 gm/ Sodium Chloride IVPB 25 mls/hr Q8HR [facility] Administration Protocol Insulin Aspart 0 unit 08/26/23 17:30 08/31/23 06:29 Insulin Aspart (Novolog) 100 Unit/Ml Vial SQ 09/02/23 17:31 1 unit ACHS [facility] Administration Protocol Levetiracetam 1,000 mg 08/28/23 14:40 08/31/23 08:10 Levetiracetam Iv 500 Mg/5 Ml Vial IVP 1,000 mg BID CORNELIO Administration Sertraline HCl 50 mg 08/27/23 09:00 08/31/23 08:11 Sertraline 50 Mg Tab PO Not Given DAILY [facility] Tamsulosin HCl 0.4 mg 08/27/23 09:00 08/31/23 08:11 Tamsulosin 0.4 Mg Cap.Er.24h PO Not Given DAILY@0900 [facility] Zinc Sulfate 220 mg 08/27/23 09:00 08/31/23 08:11 Zinc Sulfate 220 Mg Cap PO Not Given DAILY [facility] Objective - Vital Signs Vital signs: Vital Signs Temp 98.1 F 08/31/23 06:56 Pulse 100 08/31/23 08:19 Resp 28 H 08/31/23 08:19 BP 95/58 08/31/23 06:56 Pulse Ox 90 L 08/31/23 08:55 FiO2 Intake & Output 08/30/23 08/31/23 08/31/23 18:59 06:59 18:59 Intake Total 2600 700 Output Total 250 375 Balance 2350 325 Weight 53.479 kg Intake: Intake, IV Titration 2600 700 Amount Dextrose 5% in Water 1, 500 000 ml @ 125 mls/hr IV . Q8H [facility] Rx#:[id number] Piperacillin-Tazobactam 3 100 100 .375 gm In Sodium Chloride 0.9% 100 ml @ 25 mls/hr IVPB Q8HR [facility] Rx# :[id number] Sodium Chloride 0.9% 1, 450 600 000 ml @ 75 mls/hr IV . [id number] [facility] Rx#:[id number] Sodium Chloride 0.9% 1, 1500 000 ml @ 999 mls/hr IV . Q1H1M [facility] Rx#:[id number] cefTRIAXone 2 gm In 50 Sodium Chloride 0.9% 50 ml @ 100 mls/hr IVPB Q24HR [facility] Rx#:[id number] Output: Urine 250 375 Other: Voiding Method Indwelling Catheter Indwelling Catheter Indwelling Catheter - Exam -GENERAL: The patient is confused, nonverbal awake stairs HEENT: Pupils are round and equally reacting to light. EOMI. No scleral icterus. No conjunctival pallor. Normocephalic, atraumatic. No pharyngeal erythema. No thyromegaly. CARDIOVASCULAR: S1 and S2 present. No murmurs, rubs, or gallops. PULMONARY: Chest is clear to auscultation, no wheezing , no crackles. ABDOMEN: Soft, nontender, nondistended, normoactive bowel sounds. No palpable organomegaly. MUSCULOSKELETAL: No joint swelling or deformity. EXTREMITIES: No cyanosis, clubbing, or pedal edema. NEUROLOGICAL: Gross neurological examination did not reveal any focal deficits. SKIN: No rashes. no petechiae. - Labs CBC & Chem 7: 08/30/23 10:25 08/30/23 10:25 Labs: Abnormal Lab Results - Last 24 Hours (Table) 08/30/23 08/30/23 08/30/23 Range/Units 10:25 10:25 10:25 WBC 19.8 H (3.8-10.6) k/uL RBC 4.18 L (4.30-5.90) m/uL Hgb 12.3 L (13.0-17.5) gm/dL Hct 36.8 L (39.0-53.0) % Neutrophils # 18.4 H (1.3-7.7) k/uL Lymphocytes # 0.8 L (1.0-4.8) k/uL Chloride 111 H (98-107) mmol/L BUN 24 H (9-20) mg/dL Glucose 211 H (74-99) mg/dL POC Glucose (mg/dL) (70-110) mg/dL Calcium 7.5 L (8.4-10.2) mg/dL Total Protein 5.5 L (6.3-8.2) g/dL Albumin 2.6 L (3.5-5.0) g/dL Procalcitonin 0.20 H (0.02-0.09) ng/mL Urine Protein (Negative) Urine Glucose (UA) (Negative) Urine Blood (Negative) Ur Leukocyte Esterase (Negative) Urine RBC (0-5) /hpf Urine WBC (0-5) /hpf Urine Bacteria (None) /hpf Urine Mucus (None) /hpf 08/30/23 08/30/23 08/30/23 Range/Units 11:45 12:59 17:09 WBC (3.8-10.6) k/uL RBC (4.30-5.90) m/uL Hgb (13.0-17.5) gm/dL Hct (39.0-53.0) % Neutrophils # (1.3-7.7) k/uL Lymphocytes # (1.0-4.8) k/uL Chloride (98-107) mmol/L BUN (9-20) mg/dL Glucose (74-99) mg/dL POC Glucose (mg/dL) 190 H 121 H (70-110) mg/dL Calcium (8.4-10.2) mg/dL Total Protein (6.3-8.2) g/dL Albumin (3.5-5.0) g/dL Procalcitonin (0.02-0.09) ng/mL Urine Protein 1+ H (Negative) Urine Glucose (UA) Trace H (Negative) Urine Blood Trace H (Negative) Ur Leukocyte Esterase Small H (Negative) Urine RBC 6 H (0-5) /hpf Urine WBC 17 H (0-5) /hpf Urine Bacteria Rare H (None) /hpf Urine Mucus Many H (None) /hpf 08/30/23 08/31/23 Range/Units 21:05 05:52 WBC (3.8-10.6) k/uL RBC (4.30-5.90) m/uL Hgb (13.0-17.5) gm/dL Hct (39.0-53.0) % Neutrophils # (1.3-7.7) k/uL Lymphocytes # (1.0-4.8) k/uL Chloride (98-107) mmol/L BUN (9-20) mg/dL Glucose (74-99) mg/dL POC Glucose (mg/dL) 128 H 163 H (70-110) mg/dL Calcium (8.4-10.2) mg/dL Total Protein (6.3-8.2) g/dL Albumin (3.5-5.0) g/dL Procalcitonin (0.02-0.09) ng/mL Urine Protein (Negative) Urine Glucose (UA) (Negative) Urine Blood (Negative) Ur Leukocyte Esterase (Negative) Urine RBC (0-5) /hpf Urine WBC (0-5) /hpf Urine Bacteria (None) /hpf Urine Mucus (None) /hpf Microbiology - Last 24 Hours (Table) 08/30/23 12:59 Urine Culture - Final Urine,Voided Assessment and Plan Assessment: Acute colitis Altered mental status, metabolic encephalopathy. EEG showing sharp waves with over the left peroneal region Acute urinary tract infection Hypernatremia Acute kidney injury Dementia Parkinson disease BPH Anxiety and depression Plan: Continue with change antibiotics to Zosyn Discontinue D5W and start normal saline at 75 mL/h Start IV Lasix Continue with oxygen Consults hospice, per recommendation for hospice consult which was called and they going to contact the for official papers Monitor blood pressure MRI of the brain is negative for an acute stroke. Neurologist on the case. Neurology consult, started Keppra empirically Labs and medication were reviewed.. Continue same treatment. Continue with symptomatic treatment. Resume home medication. Monitor labs and vitals. DVT and GI prophylaxis. Further recommendations as per clinical course of the patient DVT prophylaxis: Subcutaneous heparin GI Prophylaxis: Pepcid DO NOT RESUSCITATE Prognosis is guarded
[2023-08-31] MEDS: FUROSEMIDE 10 MG/ML 4 ML VIAL IV SCH (11:14)
--- NOTE | 2023-09-03 13:35 | P.PCN ---
Date of Procedure: 08/28/23 Preoperative Diagnosis: Altered mental status, rule out encephalitis Postoperative Diagnosis: Altered mental status, rule out encephalitis Procedure(s) Performed: Lumbar puncture Anesthesia: local Surgeon: Elie Vera Pathology: other (sent) Condition: stable Disposition: floor Indications for Procedure: Altered mental status, rule out encephalitis Description of Procedure: Informed consent was obtained from patient's . Patient was placed in the left lateral recumbent position. The procedure was performed under strict aseptic conditions. L4 lumbar space was identified and marked. Low back region was sterilized with ChloraPrep and then with Betadine, and anesthetized with 1% lidocaine. A spinal needle 21-gauge, 3.5 inch inserted at L4 lumbar space. I was able to enter subarachnoid space in 1 pass. The spinal fluid was clear and colorless, and remained clear in the first 3 tubes, however somehow the last tube showed some blood tinge in the specimen. About 8-9 mL of spinal fluid was collected in 4 tubes. Stylette was reintroduced, spinal needle withdrawn. Band-Aid applied. Patient was recommended to lay flat for half an hour. Patient tolerated the procedure very well. Spinal fluid will be sent for analysis.
--- NOTE | 2023-09-05 12:25 | CDI ---
Documentation Clarification Form Date: 09/05/2023 11:16:58 AM From: Sahra Miles RN, CCDS Email: [email or web address] Admit Date: 08/26/2023 12:20:00 PM Patient Name: Champ Dill Visit Number: [id number] Discharge Date: 08/31/2023 11:22:00 AM ATTENTION: The Clinical Documentation Specialists (CDI) and [facility] Coding Staff appreciate your assistance in clarifying documentation. Please respond to the clarification below the line at the bottom and electronically sign. The CDI & [facility] Coding staff will review the response and follow-up if needed. Please note: Queries are made part of the Legal Health Record. If you have any questions, please contact the author of this message via ITS. Dr. Joseph Rubio UTI is documented in the ED, H&P and progress notes and patient was admitted with a chronic Bejarano catheter. Additional clarification regarding the etiology of the UTI is requested. History/Risk Factors: Advanced dementia, CAD, angina, prostate disorder and chronic Bejarano catheter. Presented with altered mental status. Admitted with acute UTI and metabolic encephalopathy. Clinical Indicators: ED: "Patient does have a Bejarano catheter in place." 08/26 H&P: "Patient does have a Bejarano catheter in place. Altered mental status; likely toxic metabolic encephalopathy related to UTI." 08/26-08/29 Nursing notes indicate patient was admitted with chronic Bejarano catheter for urinary obstruction. 08/26 Urinalysis: cloudy, moderate blood, large leukocyte esterase, WBC 127, rare bacteria, moderate mucus Treatment: IV Rocephin 1gm x1 on 08/26; IV Rocephin 2gm Q24H 08/27-08/30; 0.9 NS 500ml IV bolus on 08/26; 0.45 NS @100mL/hr 08/26-08/29; 0.9 NS 1L IV bolus on 08/30 Please clarify the etiology of the UTI, if known: [x ] UTI from chronic Bejarano catheter [ ] UTI not related to catheter [ ] Other condition, please specify [ x ] Unable to determine MTDD
--- NOTE | 2023-09-18 20:52 | CDI ---
Documentation Clarification Form Date: 09/05/2023 11:16:00 AM From: Sahra Miles RN, CCDS Email: [email or web address] Admit Date: 08/26/2023 12:20:00 PM Patient Name: Champ Dill Visit Number: [id number] Discharge Date: 08/31/2023 11:22:00 AM ATTENTION: The Clinical Documentation Specialists (CDI) and [facility] Coding Staff appreciate your assistance in clarifying documentation. Please respond to the clarification below the line at the bottom and electronically sign. The CDI & [facility] Coding staff will review the response and follow-up if needed. Please note: Queries are made part of the Legal Health Record. If you have any questions, please contact the author of this message via ITS. Dr. Ruiz E Ramiro UTI is documented in the ED, H&P and progress notes and patient was admitted with a chronic Bejarano catheter. Additional clarification regarding the etiology of the UTI is requested. History/Risk Factors: Advanced dementia, CAD, angina, prostate disorder and chronic Bejarano catheter. Presented with altered mental status. Admitted with acute UTI and metabolic encephalopathy. Clinical Indicators: ED: "Patient does have a Bejarano catheter in place." 08/26 H&P: "Patient does have a Bejarano catheter in place. Altered mental status; likely toxic metabolic encephalopathy related to UTI." 08/26-08/29 Nursing notes indicate patient was admitted with chronic Bejarano catheter for urinary obstruction. 08/26 Urinalysis: cloudy, moderate blood, large leukocyte esterase, WBC 127, rare bacteria, moderate mucus Treatment: IV Rocephin 1gm x1 on 08/26; IV Rocephin 2gm Q24H 08/27-08/30; 0.9 NS 500ml IV bolus on 08/26; 0.45 NS @100mL/hr 08/26-08/29; 0.9 NS 1L IV bolus on 08/30 Please clarify the etiology of the UTI, if known: [ x ] UTI from chronic Bejarano catheter [ ] UTI not related to catheter [ ] Other condition, please specify [ ] Unable to determine MTDD
== END 2023-08-31 11:22 | disposition hospice, home (50) | DRG 698 ==
LOC: EC 09:12 → 4SSUR 12:20
PROVIDERS: ADMIT Hospitalist; ATTEND Hospitalist
PROC: 4A10X4Z Monitoring of Central Nervous Electrical Activity, External Approach (ICD-10-PCS; 2023-08-27)
PROC: 009U3ZX Drainage of Spinal Canal, Percutaneous Approach, Diagnostic (ICD-10-PCS; principal; 2023-08-28)
DX: T83.511A Infection and inflammatory reaction due to indwelling urethral catheter, initial encounter (principal); G92.8 Other toxic encephalopathy; N17.9 Acute kidney failure, unspecified; E87.0 Hyperosmolality and hypernatremia; N39.0 Urinary tract infection, site not specified; G20.A1 Parkinson's disease without dyskinesia, without mention of fluctuations; F32.A Depression, unspecified; F02.80 Dementia in other diseases classified elsewhere, unspecified severity, without behavioral disturbance, psychotic disturbance, mood disturbance, and anxiety; Z66 Do not resuscitate; Z51.5 Encounter for palliative care; Z11.52 Encounter for screening for COVID-19; E86.0 Dehydration; I25.10 Atherosclerotic heart disease of native coronary artery without angina pectoris; N40.0 Benign prostatic hyperplasia without lower urinary tract symptoms; R29.6 Repeated falls; Z79.82 Long term (current) use of aspirin; Z79.899 Other long term (current) drug therapy; Y84.6 Urinary catheterization as the cause of abnormal reaction of the patient, or of later complication, without mention of misadventure at the time of the procedure; Y92.122 Bedroom in nursing home as the place of occurrence of the external cause; Z82.49 Family history of ischemic heart disease and other diseases of the circulatory system
CPT/HCPCS: 36415; 70450; 70553; 71045; 71260; 74177; 80048; 80053; 80076; 81001; 82945; 83605; 83735; 84145; 84157; 84295; 85025; 85610; 85730; 87040; 87086; 87496; 87498; 87529; 87636; 87798; 88108; 89050; 93005; 94760; 95816; 96361; 96365; 96368; 96375; 99285

== ENCOUNTER 2023-08-31 10:22 | Inpatient (IN) | payer MEDICAID ==
[2023-08-31] MEDS ORDERED: ONDANSETRON 4 MG/2 ML VIAL IVP PRN (10:41)
[2023-08-31] MEDS ORDERED: DRY MOUTH SPRAY 44.3 SPRAY/44.3 ML SPRAY MUCOUS MEM PRN (10:41)
[2023-08-31] MEDS ORDERED: ACETAMINOPHEN SUPPOSITORY 650 MG SUPP RECTAL PRN (10:41)
[2023-08-31] MEDS ORDERED: ARTIFICIAL TEARS-HYPROMELLOSE DROPS 15 ML BTL BOTH EYES PRN (10:41)
[2023-08-31] MEDS ORDERED: MORPHINE SULFATE 4 MG/ML SYRINGE IV PRN (10:41)
[2023-08-31] MEDS: MORPHINE SULFATE (100 MG/2 ML) 100 MG in SODIUM CHLORIDE 0.9% 100 ML IV SCH (11:47)
[2023-08-31] MEDS: ATROPINE OPHTH SOLN 1% 5ML BTL SUBLINGUAL PRN (14:59)
[2023-08-31] MEDS: LORazepam 2 MG/ML INJ IV PRN (16:38)
[2023-08-31] MEDS: GLYCOPYRROLATE 0.2 MG/ML 2 ML VIAL IVP PRN (17:10)
[2023-08-31 21:31] VITALS: RESP 0
[2023-09-02] MEDS ORDERED: SCOPOLAMINE 1 MG/72 HR PATCH TRANSDERM SCH (22:00)
== END 2023-08-31 20:56 | disposition expired | DRG 951 ==
LOC: 4SSUR 11:23
PROVIDERS: ADMIT Internal Medicine; ATTEND Internal Medicine
DX: Z51.5 Encounter for palliative care (principal); G93.41 Metabolic encephalopathy; N39.0 Urinary tract infection, site not specified; N17.9 Acute kidney failure, unspecified; E87.0 Hyperosmolality and hypernatremia; I25.10 Atherosclerotic heart disease of native coronary artery without angina pectoris; G89.29 Other chronic pain; M54.50 Low back pain, unspecified; N40.0 Benign prostatic hyperplasia without lower urinary tract symptoms; R73.9 Hyperglycemia, unspecified; F32.A Depression, unspecified; F41.9 Anxiety disorder, unspecified